=== PATIENT | female | born 2005 | race Caucasian/White ===

== ENCOUNTER 2023-12-14 15:18 | Emergency (ER) | payer OTHER, SELFPAY ==
[2023-12-14 15:22] VITALS: BP 118/77; PULSE 95; RESP 18; TEMP 36.6; O2SAT 98; BMI 36.7
--- NOTE | 2023-12-14 16:03 | CT_ITS ---
The [address] [address] Patient Name: SIVAKUMAR GATICA MRN: [id number] date: 2005 Sex: F Assigned Patient Location: ER Current Patient Location: Accession/Order Number: [id number] Exam Date: 12/14/2023 16:33 Report Date: 12/14/2023 16:54 At the request of: FRANCA ZHOU Procedure: CT lumbar spine wo con EXAM: CT lumbar spine wo con HISTORY: The patient is a 17-year-old female with back pain COMPARISON: None. TECHNIQUE: CT images were obtained through the lumbar spine without intravenous contrast and reformatted in 2 dimensions. Dose reduction techniques were achieved by using automated exposure control and/or adjustment of mA and/or kV according to patient size and/or use of iterative reconstruction technique. FINDINGS: The axial images demonstrate no fractures or cortical discontinuities throughout the lumbar spine. The sacroiliac joints are maintained. There is partial lumbarization of S1. The coronal and sagittal reformatted images demonstrate no fractures or loss of vertebral body height throughout the lumbar spine. There is no significant disc space narrowing. There is 3 mm of retrolisthesis of L5 on S1. There is slight retrolisthesis of L3 on L4 and of L4 on L5. The soft tissue images demonstrate no evidence of sizable disc herniations or central canal stenosis throughout the lumbar spine. CT/CT lumbar spine wo con IMPRESSION: This is a relatively negative CT scan of the lumbar spine with no fractures or loss of vertebral body height. Electronically authenticated by: KAREN ACOSTA Date: 12/14/2023 16:54
[2023-12-14] MEDS: KETOROLAC TROMETHAMINE 30 MG/ML VIAL IM (16:25)
--- NOTE | 2023-12-14 17:12 | ED.BACK1 ---
HPI - Back Pain/Injury General Chief Complaint: Back Pain/Injury Stated Complaint: WEAK, BACK PAIN Time Seen by Provider: 12/14/23 15:34 Source: patient Mode of arrival: walk-in Limitations: no limitations History of Present Illness HPI Narrative: Is coming to the ER with lower back pain that is not associate with any radiation numbness tingling or any other complaints, the patient pain also not associate with any trauma but she did mention that she was evaluated for that couple days ago in another facility and [facility] after which she was prescribed Flexeril and she feels that her legs are weaker or she is weaker generally because of the Flexeril. No incontinence of urine or stool Related Data Home Medications Medication Instructions Recorded Confirmed cyclobenzaprine 10 mg tablet 10 mg PO QAM 12/14/23 12/14/23 lurasidone 40 mg tablet (Latuda) 40 mg PO DAILY 12/14/23 12/14/23 melatonin 3 mg capsule 3 mg PO DAILY 12/14/23 12/14/23 montelukast 10 mg tablet 10 mg PO DAILY 12/14/23 12/14/23 (Singulair) propranolol 60 mg capsule,24 10 mg PO DAILY 12/14/23 12/14/23 hr,extended release venlafaxine 75 mg capsule,extended 75 mg PO DAILY 12/14/23 12/14/23 release 24 hr (Effexor XR) Previous Rx's Medication Instructions Recorded acetaminophen 650 mg 650 mg PO Q8H PRN pain #20 tabs 12/14/23 tablet,extended release (Tylenol 8 Hour) prednisone 20 mg tablet 40 mg (2 x 20 mg) PO DAILY 5 days 12/14/23 #10 tabs Allergies Allergy/AdvReac Type Severity Reaction Status Date / Time amoxicillin Allergy Mild Verified 12/14/23 15:22 Review of Systems ROS Status of ROS 10 or more systems reviewed and unremarkable except as noted in history and below Exam Narrative Exam Narrative: Nurses notes and vital signs reviewed and patient is not hypoxic. General: Well-appearing and in no apparent distress. Skin: Warm, dry, no pallor noted. No rash. Head: Normocephalic, atraumatic. Neck: Supple, non-tender. Eye: Pupils are equal, round and EOMI. No scleral icterus. Ears, Nose, Mouth, and Throat: TM are clear, no nasal mucosal hypertrophy. Oral mucosa is moist, no posterior oropharynx erythema, uvula is mid-line Cardiovascular: Regular Rate and Rhythm without murmur, gallop or rub. Respiratory: No accessory muscle use or respiratory distress. Lungs are clear to auscultation, no wheezing, rales or rhonchi Chest Wall: no tenderness Back: No midline thoracic there is a intervertebral line tenderness at the lower lumbar level no paraspinal muscle tenderness Musculoskeletal: normal ROM, no calf or popliteal tenderness, no lower extremity edema/swelling GI: Abdomen is soft, non-distended. Normal bowel sounds. No masses appreciated. No tenderness to palpation. No rebound, guarding, or rigidity noted. Neurological: A&O x4. No cranial nerve dysfunction observed. No truncal ataxia. Moves all extremities. Sensation intact. Psychiatric: Cooperative and interactive. Normal mood and affect. Constitutional Vital Signs, click to edit/add: Last Vital Signs Temp 97.8 F 12/14/23 15:22 Pulse 95 H 12/14/23 15:22 Resp 18 12/14/23 15:22 BP 118/77 12/14/23 15:22 Pulse Ox 98 12/14/23 15:22 Course Vital Signs Vital signs: Vital Signs Temperature 97.8 F 12/14/23 15:22 Pulse Rate 95 H 12/14/23 15:22 Respiratory Rate 18 12/14/23 15:22 Blood Pressure 118/77 12/14/23 15:22 Pulse Oximetry 98 12/14/23 15:22 Temperature 97.8 F 12/14/23 15:22 Pulse Rate 95 H 12/14/23 15:22 Respiratory Rate 18 12/14/23 15:22 Blood Pressure 118/77 12/14/23 15:22 Pulse Oximetry 98 12/14/23 15:22 MDM - Back Pain/Injury MDM Narrative Medical decision making narrative: CT of the lumbar spine was done because of the patient's symptoms that has been continuous in addition to the fact that she mentioned weakness although in the examination the patient had a good flexion in the ankle Right now the patient CAT scan showed no acute significant pathology but the patient will be treated with 5 days of prednisone in addition to Tylenol and stopping her naproxen The patient is to follow up with primary care physician in next 2-3 days or to return to the emergency department should any of the signs or symptoms worsen or new symptoms develop. The patient agrees with the following Diagnosis and Treatment plan and the patient will be discharged home. Discharge Plan Discharge Chief Complaint: Back Pain/Injury Clinical Impression: Strain of lumbar region Patient Disposition: Home, Self-Care Time of Disposition Decision: 17:10 Condition: Good Prescriptions / Home Meds: New prednisone 20 mg tablet 40 mg PO DAILY 5 Days Qty: 10 0RF acetaminophen [Tylenol 8 Hour] 650 mg tablet extended release 650 mg PO Q8H PRN (Reason: pain) Qty: 20 0RF No Action venlafaxine [Effexor XR] 75 mg capsule,extended release 24hr 75 mg PO DAILY montelukast [Singulair] 10 mg tablet 10 mg PO DAILY lurasidone [Latuda] 40 mg tablet 40 mg PO DAILY Rx Instructions: must administer with food (at least 350 calories) melatonin 3 mg capsule 3 mg PO DAILY cyclobenzaprine 10 mg tablet 10 mg PO QAM propranolol 60 mg capsule,extended release 24 hr 10 mg PO DAILY Instructions: Back Pain (ED) Stand Alone Forms: Portal Instructions Referrals: [facility] [Primary Care Provider] - 1 week
== END 2023-12-14 17:25 | disposition home or self-care (01) ==
PROVIDERS: Emergency Provider Emergency Medicine
DX: S39.012A Strain of muscle, fascia and tendon of lower back, initial encounter (principal); Z79.899 Other long term (current) drug therapy; X58.XXXA Exposure to other specified factors, initial encounter
CPT/HCPCS: 72131; 96372; 99285; J1885

== ENCOUNTER 2024-10-26 17:35 | Emergency (ER) | payer OTHER, SELFPAY ==
[2024-10-26 17:43] VITALS: BP 121/70; PULSE 76; TEMP 36.6; O2SAT 99; BMI 37.0
--- OUTSIDE RECORDS SUMMARY | 2024-10-26 17:45 | XMS_ITS | CCD ---
Author Organization [facility] Care Team Providers Care Surgical Assistant Name Role Phone FRANCA MONTESINOS Unavailable Unavailable ADOLPH HAYES Unavailable Unavailable Mic Concepcion Unavailable NO FAMILY, PHYSICIAN Primary Care Provider Unava ildesiree Da Silva DO Christian Emergency Provider MD Jamaal Yoder Admit Provider [phone] MD Jamaal Yoder Attending Provider MD Soila Jacobs Attending Provider [phone] [facility] Primary Care Provider Unavailable Primary Care Provider Unavailabl e NO FAMILY, PHYSICIAN Primary Care Provider Unava ilable DO Avinash Christian Emergency Provider MD Jamaal Yoder Admit Provider [phone] MD Jamaal Yoder Attending Provider MD Solia Jacobs Attending Provider [phone] [facility] Primary Care Provider DO Angel Ca Emergency Provider LudyvaMayela Lee MD Unavailable MAYELA TRACEY Attending Unavailable MAYELA TRACEY Referring Unavailable MAYELA TRACEY Attending Unavailable PCP, NOT IN SYSTEM Primary Care Unavailable JOEY ZEPEDA Attending Unavailable PABLO ANDREW Referring Unavailable PCP, NOT IN SYSTEM Primary Care Unavailable PCP, NOT IN SYSTEM Primary Care Unavailable DWAYNE WHITTAKER Attending Unavailable PCP, NOT IN SYSTEM Primary Care Unavailable SANDEE CELESTIN Attending Unavailable PCP, NOT IN SYSTEM Primary Care Unavailable REUBEN MORALES Attending UnavailREUBEN Thomas Attending UnavailERUBEN Thomas Referring Unavailabl e PCP, NOT IN SYSTEM Primary Care Unavailable PCP, NOT IN SYSTEM Primary Care Unavailable DWAYNE WHITTAKER Attending Unavailable PABLO ANDREW Referring Unavailable PCP, NOT IN SYSTEM Primary Care Unavailable PCP, NOT IN SYSTEM Primary Care Unavailable [facility] Primary Care Unavaila Soila Marie Attending Unavailable Soila Jacobs Admitting Unavailable [facility] Primary Care Unavaila ble Mayela Tracey Attending Unavailable Tracey, Mayela Admitting Unavailable Sangeetha Alamo Referring Unavailable [facility] Primary Care Unavaila ble Marv Wilkinson Attending Unavailab le Marv Wilkinson Admitting Unavailab Heather Michaelyemi Attending Unavailable Paresh, Jamaal Admitting Unavailable NO FAMILY, PHYSICIAN Primary Care Unavailable [facility], Services Primary Care Unavaila Angel Snow Attending Unavailable Angel Ca Admitting Unavailable SHARI SHELDON Referring Unavailable MANTOLLIE MAURER Referring Unavailable MARINA SMITH Attending Unavailable SHARI SHELDON Attending Unavailable ROSALIA JOSE Attending Unavailable ELISSA TRACEYA Referring Unavailable Rosa Jensen CNP Attending Provider Rosa Chandler Attending Unavailable Allergies Allergy Classification Reported Allergen(s) Allergy Type Date of Onset Reaction(s) Facility (15 sources) Amoxicillin; Translations: [AMOXICILLIN] Drug Allergy 08-28-2018 Diarrhea [facility] (2 sources) Amoxicillin Drug Allergy 01-01-2024 [facility] Repository Medications Current Medications Medication Drug Class(es) Dates Sig (Normalized) Sig (Original) atomoxetine (1 source) Norepinephrine Reuptake Inhibitor atomoxetine HCl (STRATTERA ORAL) Take by mouth. 0 Active azithromycin 500 mg oral tablet (1 source) Macrolide Antimicrobial Start: 06-25-2023 take 1 tablet by mouth every twenty-four hours Azithromycin 500 MG 1 tablet Orally Once a day for 5 days Jun, Active dicyclomine hydrochloride 10 mg oral capsule (1 source) Anticholinergic Start: 10-20-2023 take 10 mg by mouth twice daily Dicyclomine Active 10 MG PO Twice daily 10 October 20, 2023 10:35pm fludrocortisone acetate 0.1 mg oral tablet (1 source) Start: 01-27-2024 End: 01-26-2025 take 1 tablet by mouth once daily fludrocortisone (Florinef) 0.1 mg tablet Indications: Postural dizziness with presyncope Take 1 tablet (0.1 mg) by mouth once daily. 90 tablet 3 01/27/2024 01/26/2025 Active lurasidone hydrochloride 80 mg oral tablet (6 sources) Atypical Antipsychotic Start: 09-24-2024 Lurasidone 80 mg tablet Active 80 MG PO September 24, 2024 12:00am Start: 09-24-2023 take 1 tablet by [place] th once daily at mealtime lurasidone (Latuda) 20 mg tablet Take 1 tablet (20 mg) by mouth once daily. Take with food. 0 09/24/2023 Active melatonin 3 mg oral tablet (7 sources) Start: 08-07-2023 melatonin 3 mg tablet Take 1 tablet (3 mg) by mouth as needed at bedtime for sleep. 0 08/07/2023 Active montelukast (1 source) Leukotriene Receptor Antagonist montelukast sodium (SINGULAIR ORAL) Take by mouth. 0 Active ondansetron 4 mg oral tablet (1 source) Serotonin-3 Receptor Antagonist Start: 10-20-2023 take 4 mg by mouth every eight hours Ondansetron Hcl Active 4 MG PO Q8H 12 October 20, 2023 12:00am sertraline 100 mg oral tablet (1 source) Serotonin Reuptake Inhibitor Start: 09-24-2024 Sertraline 100 mg tablet Active 50 MG PO Every Morning September 24, 2024 12:00am simethicone 250 mg oral capsule (1 source) Start: 10-20-2023 take 250 mg by mouth once daily Simethicone Active 250 MG PO Daily 7 October 20, 2023 12:00am venlafaxine 75 mg oral tablet (7 sources) Serotonin and Norepinephrine Reuptake Inhibitor Start: 09-09-2023 take 1 tablet by mouth once daily at mealtime venlafaxine (Effexor) 75 mg tablet Take 1 tablet (75 mg) by mouth once daily. Take with food. 0 09/09/2023 Active Start: 08-07-2023 take 1 capsule by mo [facility] once daily Venlafaxine (Effexor Xr) 75 mg capsule,extended release 24hr Active 75 MG PO Daily August 06, 2023 11:00pm Completed/Discontinued Medications Medication Drug Class(es) Dates Sig (Normalized) Sig (Original) magnesium oxide 400 mg oral tablet (4 sources) Start: 09-30-2023 End: 01-27-2024 take 1 tablet by mouth twice daily magnesium oxide (Mag-Ox) 400 mg tablet Indications: Postural dizziness with presyncope , Mood disorder (CMS/HCC) , Bipolar affective disorder, current episode hypomanic (CMS/HCC) , Anxiety , Posttraumatic stress disorder , Hypokalemia , Palpitations , Obesity (BMI 35.0-39.9 without comorbidity) , Shortness of breath , Abnormal EKG Take 1 tablet (400 mg) by mouth 2 times a day. 180 tablet 0 09/30/2023 01/27/2024 Discontinued (Therapy completed) microencapsulated potassium chloride 20 meq extended release oral tablet (4 sources) Start: 09-30-2023 End: 09-29-2024 take 2 tablets by mouth once daily potassium chloride CR (Klor-Con M20) 20 mEq ER tablet Indications: Postural dizziness with presyncope , Mood disorder (CMS/HCC) , Bipolar affective disorder, current episode hypomanic (CMS/HCC) , Anxiety , Posttraumatic stress disorder , Hypokalemia , Palpitations , Obesity (BMI 35.0-39.9 without comorbidity) , Shortness of breath , Abnormal EKG Take 2 tablets (40 mEq) by mouth once daily. Do not crush or chew. 180 tablet 0 09/30/2023 01/27/2024 Discontinued (Therapy completed) Problems Active Problems Problem Classification Problem Date Documented Da te Episodic/Chronic Abdominal pain (1 source) Abdominal pain; Translations: [Unspecified abdominal pain] 10-20-2023 Episodic Administrative/social admission (4 sources) Follow-up status; Translations: [Person consulting for explanation of examination or test findings] Onset: 01-27-2024 01-27-2024 Episodic Anxiety disorders (20 sources) Anxiety; Translations: [Anxiety disorder, unspecified] Onset: 09-30-2023 09-30-2023 Chronic Conditions associated with dizziness or vertigo (17 sources) Postural dizziness; Translations: [Dizziness and giddiness] Onset: 08-29-2023 09-30-2023 Episodic Disorders usually diagnosed in infancy, childhood, or adolescence (2 sources) Autistic disorder; Translations: [Autistic disorder] Onset: 03-11-2024 Chronic Headache; including migraine (1 source) Headache Onset: 11-19-2023 Episodic Headache; including migraine (3 sources) Headache; including migraine; Translations: [Headache, unspecified] Onset: 11-19-2023 Malaise and fatigue (3 sources) Other fatigue; Translations: [Fatigue] Onset: 07-02-2017 Episodic Mood disorders (20 sources) Major depressive disorder; Translations: [Major depressive disorder, single episode, unspecified] Onset: 08-05-2023 08-05-2023 Chronic Mood disorders (2 sources) Mood disorders; Translations: [Depression, unspecified] Onset: 03-18-2024 Other aftercare (2 sources) Treatment changed; Translations: [Other supervisor intermediates (current) drug therapy] Onset: 01-27-2024 01-27-2024 Episodic Other aftercare (2 sources) Other supervisor intermediates (current) drug therapy; Translations: [Other residential (current) drug therapy] Onset: 01-27-2024 Episodic Other circulatory disease (3 sources) Orthostatic hypotension; Translations: [Orthostatic hypotension] Onset: 01-27-2024 01-27-2024 Episodic Other circulatory disease (1 source) Orthostatic hypotension; Translations: [Orthostatic hypotension] Onset: 01-27-2024 Episodic Other circulatory disease (1 source) Postural orthostatic tachycardia syndrome ; Translations: [Postural orthostatic tachycardia syndrome [POTS]] Onset: 09-24-2024 Episodic Other nervous system disorders (2 sources) Other chronic pain; Translations: [Other chronic pain] Onset: 02-25-2024 Chronic Other nutritional; endocrine; and metabolic disorders (8 sources) Body mass index 30+ - obesity; Translations: [Obesity, unspecified] Onset: 09-30-2023 09-30-2023 Chronic Other nutritional; endocrine; and metabolic disorders (6 sources) Obesity, unspecified; Translations: [Obesity, unspecified] Onset: 09-30-2023 Chronic Other nutritional; endocrine; and metabolic disorders (2 sources) Body mass index (BMI) 37.0-37.9, adult; Translations: [Body mass index (BMI) 37.0-37.9, adult] Onset: 03-18-2024 Chronic Other upper respiratory disease (1 source) Pain in throat Onset: 01-09-2024 Episodic Other upper respiratory infections (3 sources) Acute pharyngitis, unspecified; Translations: [Streptococcal pharyngitis] Onset: 02-02-2024 Episodic Residual codes; unclassified (2 sources) Nicotine-filled electronic cigarette user; Translations: [Tobacco use] Onset: 01-27-2024 01-27-2024 Episodic Residual codes; unclassified (2 sources) Tobacco use; Translations: [Tobacco use] Onset: 01-27-2024 Episodic Sprains and strains (1 source) Strain of muscle, fascia and tendon of lower back, initial encounter; Translations: [Strain of muscle, fascia and tendon of lower back, initial encounter] Onset: 12-10-2023 Episodic Unclassified (1 source) Painful Urination Onset: 01-29-2024 Unclassified (1 source) COUGH, SORE THROAT, Onset: 01-09-2024 Unclassified (1 source) Cold Like Symptoms Onset: 04-07-2024 Unclassified (1 source) Cough and sore throat Onset: 04-07-2024 Unclassified (1 source) Low back pain, unspecified; Translations: [Low back pain, unspecified] Onset: 07-14-2024 Urinary tract infections (1 source) Acute cystitis with hematuria; Translations: [Acute cystitis with hematuria] Onset: 01-29-2024 Episodic Viral infection (1 source) Viral infection, unspecified; Translations: [Viral infection, unspecified] Onset: 01-09-2024 Episodic Past or Other Problems Problem Classification Problem Date Documented Date Episodic/Chronic Cardiac dysrhythmias (12 sources) Palpitations; Translations: [Palpitations] Onset: 09-30-2023 09-30-2023 Episodic Fluid and electrolyte disorders (14 sources) Hypokalemia; Translations: [Hypokalemia] Onset: 09-30-2023 09-30-2023 Episodic Nausea and vomiting (3 sources) Nausea; Translations: [Nausea] Onset: 03-21-2024 10-20-2023 Episodic Other injuries and conditions due to external causes (2 sources) Allergy, unspecified, sequela; Translations: [Allergy, unspecified, sequela] Onset: 03-18-2024 Episodic Other lower respiratory disease (9 sources) Dyspnea; Translations: [Shortness of breath] Onset: 09-30-2023 09-30-2023 Episodic Other lower respiratory disease (2 sources) Shortness of breath; Translations: [Shortness of breath] Onset: 09-30-2023 Episodic Other screening for suspected conditions (not mental disorders or infectious disease) (11 sources) Electrocardiogram abnormal; Translations: [Abnormal electrocardiogram [ECG] [EKG]] Onset: 09-30-2023 09-30-2023 Episodic Spondylosis; intervertebral disc disorders; other back problems (3 sources) Backache; Translations: [Pain in thoracic spine] Onset: 12-10-2023 Episodic Suicide and intentional self-inflicted injury (6 sources) Suicidal thoughts; Translations: [Suicidal ideations] Onset: 08-05-2023 08-05-2023 Episodic Syncope (6 sources) Syncope and collapse; Translations: [Syncope and collapse] Onset: 09-30-2023 Episodic Unclassified (1 source) Low back pain, unspecified; Translations: [Low back pain, unspecified] Onset: 07-14-2024 Results Test Name Value Interpretation Reference Range Facility Patient Outreach Patient Outreach [id number] Sivakumar Prabhakar 2005 F Date Provider Department Center 07/15/2024 [id number]-[id number] BARRON [facility] FM Comprehensiv Family History Problem Relation Age of Onset Depression Mother Autism Father Depression Father Anxiety disorder Father Autism Brother Family Status - Relation Status Age at Mother Father Brother Normal [facility] EDPROVon 07-14-2024 EDPROV [facility] [address] [facility] [id number] EMERGENCY DEPARTMENT ENCOUNTER 07/14/2024 CHIEF COMPLAINT Chief Complaint Patient presents with Back Pain States she has left back hurts x 2 days HISTORY OF PRESENT ILLNESS 18-year-old female presents to the emergency department for evaluation of low back pain. Patient reports the back pain has been gradually worsening since onset over the last 2 days. patient denies radiation of the pain. Patient denies history of blunt injury. Patient reports she has been doing a lot of lifting of boxes recently for work, though. Patient denies loss of bladder or bowel control. Patient reports she took a Flexeril with no significant relief of pain. Patient denies attempting any Tylenol or Motrin prior to arrival. Patient reports she has history of chronic mid and low back pain similar to today. REVIEW OF SYSTEMS Review of Systems Constitutional: Negative for chills and fever. Respiratory: Negative for shortness of breath. Cardiovascular: Negative for chest pain. Gastrointestinal: Negative for abdominal pain, diarrhea and vomiting. Genitourinary: Negative for difficulty urinating, dysuria and frequency. Musculoskeletal: Positive for back pain. Negative for neck pain. Skin: Negative for rash. Neurological: Negative for syncope, weakness, numbness and headaches. Psychiatric/Behaviora l: Negative for confusion. All other systems reviewed and are negative. PAST MEDICAL HISTORY has a past medical history of ADHD (attention deficit hyperactivity disorder), Bipolar 1 disorder (CMS/HCC), Depression, Known health problems: none, and PTSD (post-traumatic stress disorder). SURGICAL HISTORY has a past surgical history that includes Excision benign skin lesion scalp / neck / hands / feet / genitalia. CURRENT MEDICATIONS Previous Medications ACETAMINOPHEN (TYLENOL 8 HOUR) 650 MG ER TABLET Take 650 mg by mouth every 8 (eight) hours if needed for mild pain (1-3 pain score). Do not crush, chew, or split. ATOMOXETINE (STRATTERA) 40 MG CAPSULE Take 40 mg by mouth in the morning. Swallow capsule whole; do not open. If opened accidentally, do not touch eyes; wash hands immediately (product is an eye irritant). FLUDROCORTISONE ACETATE (FLUDROCORTISONE ORAL) Take by mouth. LURASIDONE (LATUDA) 80 MG TABLET Take 80 mg by mouth in the morning. MONTELUKAST (SINGULAIR) 10 MG TABLET Take 10 mg by mouth at bedtime. PROPRANOLOL (INDERAL) 10 MG TABLET Take 10 mg by mouth three times daily. VENLAFAXINE XR (EFFEXOR-XR) 150 MG 24 HR CAPSULE Take 150 mg by mouth in the morning. Do not crush or chew. ALLERGIES is allergic to amoxicillin. FAMILY HISTORY She indicated that the status of her mother is unknown. She indicated that the status of her father is unknown. She indicated that the status of her brother is unknown. family history includes Anxiety disorder in her father; Autism in her brother and father; Depression in her father and mother. SOCIAL HISTORY reports that she has never smoked. She has never used smokeless tobacco. She reports current alcohol use. She reports that she does not currently use drugs. PHYSICIAL EXAM INITIAL VITALS: height is 1.676 m (5' 6 ) and weight is 109 kg (240 lb 3.2 oz). Her temperature is 36.4 ???C (97.5 ???F). Her blood pressure is 118/90 and her pulse is 91. Her respiration is 18 and oxygen saturation is 100%. Physical Exam Vitals reviewed. Constitutional: General: She is not in acute distress. Appearance: Normal appearance. She is not ill-appearing or toxic-appearing. HENT: Head: Normocephalic and atraumatic. Mouth/Throat: Mouth: Mucous membranes are moist. Eyes: Conjunctiva/sclera: Conjunctivae normal. Cardiovascular: Rate and Rhythm: Normal rate and regular rhythm. Heart sounds: Normal heart sounds. Pulmonary: Effort: Pulmonary effort is normal. No respiratory distress. Breath sounds: Normal breath sounds. Abdominal: Palpations: Abdomen is soft. Tenderness: There is no abdominal tenderness. Musculoskeletal: General: Normal range of motion. Cervical back: Normal range of motion and neck supple. No tenderness. Thoracic back: No tenderness. Lumbar back: Tenderness (midline and bilateral paraspinal musculature) present. Negative right straight leg raise test and negative left straight leg raise test. Comments: No saddle anesthesia. No foot drop noted bilaterally. Nontender extremities. Skin: General: Skin is warm and dry. Findings: No rash. Neurological: General: No focal deficit present. Mental Status: She is alert and oriented to person, place, and time. Sensory: Sensation is intact. Motor: Motor function is intact. Gait: Gait is intact. Gait normal. Psychiatric: Mood and Affect: Mood normal. Behavior: Behavior normal. DIAGNOSTIC RESULTS EKG: Not indicated RADIOLOGY: Radiologist interpret (more content not included)... Normal [facility] Patient Outreachon Patient Outreach [id number] Sivakumar Prabhakar 2005 F Date Provider Department [place] 03/25/2024 [id number] BARRON [facility] FM Comprehensiv Family History Problem Relation Age of Onset Depression Mother Autism Father Depression Father Anxiety disorder Father Autism Brother Family Status - Relation Status Age at Mother Father Brother Normal [facility] EDPROVon 03-21-2024 EDPROV HPI Chief Complaint Patient presents with Nausea Vomiting Headache Pt states PARKER for the last week. Nausea and vomiting starting today. Pt denies ill contacts and had control removed last week. Pt here from home via private auto. Pt with visitor in room who doesn't participate in history. Pt with reports of n/v X 1 in AM on March 27. Pt notes that emesis wasn't bilious or bloody. Pt with no unusual food. Others have eating same things as her in family and they are not ill per report. Pt with PARKER today also. Pt with no hx headaches in past. PARKER on/off over last week. Pt notes that she had recently been diagnosed with scoliosis and has had chronic fatigue (months). Pt with no fever, chills. Pt with no URI/cough/sinus symptoms. Pt with no ear pain or sore throat. Pt with no CP/SOB. Pt with no abd pain. Pt told RN that had control removed last week (I verified nexplanon). Pt with dinner tonight and felt nauseated again and took a test and was negative . Pt with no trauma/head injury. Pt with no concern about CO exposure where she is living/working. Pt with no vision/speech issues that are new. Pt with nothing taken for symptoms. Pt with generalized PARKER. Pt with no n/t/w. Pt with no balance/coordination issues. Pt with no hx change in caffeine usage. Pt hasn't taken any OTC meds. Pt has been able to eat/drink since emesis in am. Pt with no hx GERD, PUD, GB problems or renal stones. Pt with no prior surgery on abd. Pt with no change in/new medications. Meera Coma Scale Score: 15 Patient History Past Medical History: Diagnosis Date ADHD (attention deficit hyperactivity disorder) Bipolar 1 disorder (CMS/HCC) Depression Known health problems: none PTSD (post-traumatic stress disorder) Past Surgical History: Procedure Laterality Date EXCISION BENIGN SKIN LESION SCALP / NECK / HANDS / FEET / GENITALIA Family History Problem Relation Name Age of Onset Depression Mother Autism Father Depression Father Anxiety disorder Father Autism Brother Social History Tobacco Use Smoking status: Never Smokeless tobacco: Never Vaping Use Vaping Use: Every day Substances: Nicotine Devices: Disposable Substance Use Topics Alcohol use: Yes Comment: monthly Drug use: Not Currently Review of Systems Review of Systems Constitutional: Positive for fatigue. Negative for appetite change, chills and fever. HENT: Negative for ear pain, rhinorrhea and sore throat. Eyes: Negative for photophobia and visual disturbance. Respiratory: Negative for cough, chest tightness and shortness of breath. Gastrointestinal: Positive for nausea and vomiting. Negative for abdominal distention, abdominal pain, blood in stool, constipation and diarrhea. Genitourinary: Negative for difficulty urinating, dysuria, flank pain and hematuria. Musculoskeletal: Negative for arthralgias and myalgias. Neurological: Positive for headaches. Negative for dizziness, facial asymmetry, speech difficulty, weakness and numbness. Physical Exam ED Triage Vitals [03/21/24 2211] Temp Heart Rate Resp BP 35.9 ???C (96.7 ???F) 88 17 106/77 SpO2 Temp Source Heart Rate Source Patient Position 98 % Temporal Monitor Sitting BP Location FiO2 (%) Left arm -- Physical Exam Constitutional: General: She is not in acute distress. Appearance: She is well-developed. She is obese. She is not ill-appearing. HENT: Head: Normocephalic and atraumatic. Mouth/Throat: Mouth: Mucous membranes are moist. Eyes: Pupils: Pupils are equal, round, and reactive to light. Cardiovascular: Rate and Rhythm: Normal rate and regular rhythm. Heart sounds: Normal heart sounds. Pulmonary: Effort: Pulmonary effort is normal. Breath sounds: Normal breath sounds. Abdominal: General: Bowel sounds are normal. Palpations: Abdomen is soft. Musculoskeletal: General: No swelling or tenderness. Skin: General: Skin is warm and dry. Neurological: Mental Status: She is alert and oriented to person, place, and time. Cranial Nerves: No cranial nerve deficit. Sensory: No sensory deficit. Motor: No weakness. Comments: Speech clear and no facial droop. Psychiatric: Mood and Affect: Mood normal. Procedures ED Course & MDM ED Course as of 03/21/24 [id number] Sat March 21, 2024 0462 I was back to update pt on results of labs and outpt plan of care. [CS] ED Course User Index [CS] Marina Smith MD Diagnoses as of 03/21/24 2347 Nonintractable headache, unspecified chronicity pattern, unspecified headache type Nausea and vomiting, unspecified vomiting type Medical Decision Making Flu, dehydration, COVID, viral illness, CO exposure Problems Addressed: Nausea and vomiting, unspecified vomiting type: self-limited or minor problem Nonintractable headache, unspecified chronicity pattern, unspecified headache type: self-limited or minor problem Amount and/or Complexity of Data Reviewed Exter (more content not included)... Normal [facility] Office Visiton 03-18-2024 Follow-up visit [id number] Francie Prabhakarbrey 2005 F Date Provider Department Center 03/18/2024 [id number]-ROSALIA JOSE [facility] FM Comprehensiv Family History Problem Relation Age of Onset Depression Mother Autism Father Depression Father Anxiety disorder Father Autism Brother Family Status - Relation Status Age at Mother Father Brother Level of Service:49908 NC OFFICE/OUTPATIENT NEW MODERATE MDM 45 MINUTES (GC) Reason for Visit and Comments: Establish Care [42] - New patient, est. Care questions about back and other issues Normal [facility] EDPROVon 02-25-2024 EDPROV HPI Chief Complaint Patient presents with ??? Back Pain Patient c/o back pain that is making it hard to breath. No relief with muscle relaxer or tylenol. Patient recently moved. Pt c/o mid-back pain that began yesterday but has a history of this same pain. Denies injury, bowel/bladder dysfunction, weakness/numbness in lower extremities. No relief with motrin, tylenol or flexeril. Pain worse with bending/twisting. History provided by: Patient Outing Coma Scale Score: 15 Patient History Past Medical History: Diagnosis Date ??? Known health problems: none No past surgical history on file. No family history on file. Social History Tobacco Use ??? Smoking status: Not on file ??? Smokeless tobacco: Not on file Vaping Use ??? Vaping Use: Not on file Substance Use Topics ??? Alcohol use: Yes Comment: monthly ??? Drug use: Not Currently Review of Systems Review of Systems Constitutional: Negative. Gastrointestinal: Negative for abdominal pain. Genitourinary: Negative for dysuria, flank pain and frequency. Musculoskeletal: Positive for back pain. Physical Exam ED Triage Vitals Temp Heart Rate Resp BP 02/25/24 1358 02/25/24 1358 02/25/24 1359 02/25/24 1358 36.6 ???C (97.9 ???F) 80 18 (!) 133/92 SpO2 Temp Source Heart Rate Source Patient Position 02/25/24 1358 02/25/24 1359 02/25/24 1359 02/25/24 1359 100 % Oral Monitor Sitting BP Location FiO2 (%) 02/25/24 1359 -- Left wrist Physical Exam Constitutional: General: She is not in acute distress. Appearance: Normal appearance. She is not ill-appearing, toxic-appearing or diaphoretic. HENT: Head: Normocephalic and atraumatic. Musculoskeletal: Thoracic back: Tenderness present. No signs of trauma, spasms or bony tenderness. Normal range of motion. Neurological: Mental Status: She is alert. Procedures ED Course & MDM Diagnoses as of 02/25/24 1604 Chronic thoracic back pain, unspecified back pain laterality Medical Decision Making Attestion Ollie Morgan NP 02/25/24 1520 Normal [facility] SARS/FLU A+B/RSV by NAAT/Mol ecularon 02-02-2024 SARS/FLU A+B/RSV by NAAT/Molecular FLU A PCR Negative (qualifier value) FLU B PCR Negative (qualifier value) RSV by PCR Negative (qualifier value) SARS CoV 2 Not detected (qualifier value) NOTE The Xpert Xpress SARS-CoV-2/Flu/RSV Plus test is a rapid, multiplexed real-time RT-PCR test intended for the simultaneous qualitative detection and differentiation of SARS-CoV-2, influenza A, influenza B and respiratory syncytial virus (RSV) viral RNA from individuals suspected of respiratory viral infection consistent with COVID-19 by their healthcare provider. This test has not been validated in asymptomatic patients. The Xpert Xpress SARS-CoV-2 test is intended for use by qualified and trained operators who are performing tests using either [employer] or [employer] systems and is limited to laboratories that meet the CLIA requirements to perform high and moderate complexity tests. The Xpert Xpress SARS-CoV-2/Flu/RSV Plus is only for use under the Food and Drug Administration's Emergency Use Authorization. Results are for the simultaneous detection and differentiation of SARS-CoV-2, influenza A, influenza B and RSV nucleic acids in clinical specimens. SARS-CoV-2, influenza A, influenza B and RSV RNA identified by this test are generally detectable in upper respiratory samples during the acute phase of infection. Positive results are indicative of the presence of the identified virus, but do not rule out bacterial infection or co-infection with other pathogens not detected by this test. Clinical correlation with patient history and other diagnostic information is necessary to determine patient infection status. The agent detected may not be the definite cause of disease. Negative results do not preclude SARS-CoV-2, influenza A, influenza B and RSV infection and should not be used as the sole basis for treatment or other patient management decisions. Negative results must be combined with clinical observations, patient history and epidemiological information. An Invalid result may occur with specimen-associated inhibition unable to be resolved with specimen repeat. Fact Sheet for Healthcare Providers: https://www.fda.gov/m edia/209749/download Fact Sheet for Patients: https://www.fda.gov/m edia/693267/download Normal [facility] Comment on above: Performed By: #### C NELSON CASTANEDA, 70783-3, 61025-5 #### [facility] ([id number]) [address] [place] [address] 48723 CHLAMYDIA/GC PCR, Uon 2023 CHLAMYDIA/GC PCR, U SPECIMEN SOURCE Unknown (qualifier value) CHLAMYDIA DNA(PCR) Positive (qualifier value) Chlamydia trachomatis detected by nucleic acid amplification. GONORRHOEAE DNA(PCR) Negative (qualifier value) Neisseria gonorrhoeae not detected by nucleic acid amplification. This does not exclude the possibility of infection because results are dependent on adequate specimen collection. Normal [facility] Comment on above: Performed By: #### C NELSON CASTANEDA, 37846-9, 11903-8 #### [facility] ([id number]) [address] [place] [address] 80165 HCG ( test) Ql (U)o n 01-29-2024 Beta HCG ( test) Ql (U) Negative Normal NEG [facility] Comment on above: Performed By: #### C LEONEL [facility], 21778-0, 66842-6 #### [facility] ([id number]) [address] [place] [address] 53987 URINE CULTUREon 01-29-2024 Bacteria identified Cx Nom (U) CULTURE RESULTS 50,000 to 100,000 ORGANISMS/mL ESCHERICHIA COLI [ S = SUSCEPTIBLE R = RESISTANT I = INTERMEDIATE S-DO = Susceptible-dose dependent NS = Non-suscceptible NO = No Interpretation ] Organism: ESCHERICHIA COLI Antibiotic Interpretation ABBY Status AMPICILLIN S <=2 F AMP/SULBACTAM S <=2/1 F CEFAZOLIN S <=4 F CEFTRIAXONE S <=1 F CIPROFLOXACIN S <=0.25 F GENTAMICIN S <=1 F LEVOFLOXACIN S <=0.12 F NITROFURANTOIN S <=16 F PIPERACIL/TAZOBACTAM S <=4 F TOBRAMYCIN S <=1 F TRIMETH/SULFAMETHOXAZ OLE S <=1/19 F Susceptible [facility] Comment on above: Performed By: #### C LEONEL [facility], 60294-9, 17476-3 #### [facility] ([id number]) [address] [place] [address] 98855 URN MACROSCOPIC NURon 2023 BILIRUBIN SONIDO Negative Normal NEG [facility] Comment on above: Performed By: #### N UM #### [facility] ([id number]) [address] [place] [address] 84892 BLOOD/HGB SONIDO Large Abnormal NEG [facility] Comment on above: Performed By: #### N UM #### [facility] ([id number]) [address] [place] [address] 96998 GLUCOSE SONIDO Negative Normal NEG [facility] Comment on above: Performed By: #### N UM #### [facility] ([id number]) [address] [place] [address] 59887 KETONES SONIDO Trace Abnormal NEG [facility] Comment on above: Performed By: #### N UM #### [facility] ([id number]) [address] [place] [address] 27057 LEUKOCYTE ESTERASE SONIDO Small Abnormal NEG Pr [facility] Comment on above: Performed By: #### N UM #### [facility] ([id number]) [address] [place] [address] 57162 NITRITE SONIDO Negative Normal NEG [facility] Comment on above: Performed By: #### N UM #### [facility] ([id number]) [address] [place] [address] 67348 PH SONIDO 5.5 Normal 5.0-8.5 [facility] Comment on above: Performed By: #### N UM #### [facility] ([id number]) [address] [place] [address] 44496 PROTEIN SONIDO 30 mg/dL Abnormal NEG [facility] Comment on above: Performed By: #### N UM #### [facility] ([id number]) [address] [place] [address] 48812 SPECIFIC GRAVITY SONIDO >=1.030 Normal 1.003-1.035 [facility] Comment on above: Performed By: #### N UM #### [facility] ([id number]) [address] [place] [address] 46644 UROBILINOGEN SONIDO 1.0 eu/dL Normal <1.1 [facility] Comment on above: Performed By: #### N UM #### [facility] ([id number]) [address] [place] [address] 91917 VAGINITIS PANEL PCRon 2023 VAGINITIS PANEL PCR BACT. VAGINOSIS DNA Not detected (qualifier value) Qualitative results are reported based on detection and quantitation of targeted organism markers which include: Lactobacillus spp. (L. crispatus and L. jensenii), Gardnerella vaginalis, Atopobium vaginae, Bacterial Vaginosis Associated Bacteria-2 (BVAB-2) and Megasphaera-1 CASPER SPECIES DNA Not detected (qualifier value) Casper species not detected include: C. albicans, C. tropicalis, C. parapsilosis or C. dubliniensis CASPER KRUSEI DNA Not detected (qualifier value) No Casper krusei detected CASPER GLABRATA DNA Not detected (qualifier value) No Casper glabrata detected TRICHOMONAS VAG DNA Not detected (qualifier value) No Trichomonas vaginalis detected NOTE BD MAX Vaginal Panel has not been evaluated for patients under 18 years old. Results for these patients should be reviewed and assessed in accordance with clinical presentation to determine patient diagnosis. Normal [facility] Comment on above: Performed By: #### C BCA, [facility], 10321-7, 15731-5 #### [facility] ([id number]) [address] [place] [address] 34205 RAPID STREP SCR NURSINGon S. pyogenes Ag EIA Ql (Throat) Negative Normal NEG [facility] Comment on above: Performed By: #### 6 556-5 #### [facility] ([id number]) [address] [place] [address] 52186 SARS/FLU A+B/RSV by NAAT/Mol ecularon 01-09-2024 SARS/FLU A+B/RSV by NAAT/Molecular FLU A PCR Negative (qualifier value) FLU B PCR Negative (qualifier value) RSV by PCR Negative (qualifier value) SARS CoV 2 Not detected (qualifier value) NOTE The Xpert Xpress SARS-CoV-2/Flu/RSV Plus test is a rapid, multiplexed real-time RT-PCR test intended for the simultaneous qualitative detection and differentiation of SARS-CoV-2, influenza A, influenza B and respiratory syncytial virus (RSV) viral RNA from individuals suspected of respiratory viral infection consistent with COVID-19 by their healthcare provider. This test has not been validated in asymptomatic patients. The Xpert Xpress SARS-CoV-2 test is intended for use by qualified and trained operators who are performing tests using either [employer] or [employer] systems and is limited to laboratories that meet the CLIA requirements to perform high and moderate complexity tests. The Xpert Xpress SARS-CoV-2/Flu/RSV Plus is only for use under the Food and Drug Administration's Emergency Use Authorization. Results are for the simultaneous detection and differentiation of SARS-CoV-2, influenza A, influenza B and RSV nucleic acids in clinical specimens. SARS-CoV-2, influenza A, influenza B and RSV RNA identified by this test are generally detectable in upper respiratory samples during the acute phase of infection. Positive results are indicative of the presence of the identified virus, but do not rule out bacterial infection or co-infection with other pathogens not detected by this test. Clinical correlation with patient history and other diagnostic information is necessary to determine patient infection status. The agent detected may not be the definite cause of disease. Negative results do not preclude SARS-CoV-2, influenza A, influenza B and RSV infection and should not be used as the sole basis for treatment or other patient management decisions. Negative results must be combined with clinical observations, patient history and epidemiological information. An Invalid result may occur with specimen-associated inhibition unable to be resolved with specimen repeat. Fact Sheet for Healthcare Providers: https://www.fda.gov/m edia/621515/download Fact Sheet for Patients: https://www.fda.gov/m edia/371967/download Normal [facility] Comment on above: Performed By: #### C OVFLR #### [facility] ([id number]) [address] [place] [address] 65479 CA tilt table teston 024 CA tilt table test [facility] [place] [address] [place] [address] Cardiology Report Signed Patient: Sivakumar Prabhakar MR#: [id number] : 2005 Acct:[id number] Age/Sex: 18 / F ADM Date: 01/01/24 Loc: Room: Type: [facility] Attending Dr: Mayela Tracey MD Copies to: Mayela Alamo MD Ordering Provider: Mayela Tracey Date of Service: 01/01/24 CA/CA tilt table test: syncope/near syncope REASON FOR THE STUDY: Symptoms of lightheadedness and dizziness and orthostatic symptomatology to rule out neurocardiogenic syncope or POTS. PROCEDURE: The patient underwent standard head-up tilt table test. The patient received total of 250 mL of normal saline. Then, the patient was tilted to the upright position. Continuous blood pressure, O2 saturation and heart rate monitoring was established. Following tilt maneuver, the patient demonstrated normal and physiologic response to tilt maneuver. No symptoms were recreated. The patient received sublingual nitroglycerin and monitored for additional 15 minutes. Also, demonstrated normal and physiologic response to nitroglycerin administration. No symptoms were reported. CONCLUSION: 1. Negative tilt table test. 2. Physiologic response to tilt maneuver and nitroglycerin administration. Transcribed By: DELMA 01/01/24 1536 Dictated By: Sangeetha Alamo MD 01/01/24 1046 Signed By: 01/02/24 0629 Normal [facility] CBC AND AUTO DIFFon 11-19-19 ABSOLUTE BASOPHIL 0.1 X10E9/L Normal 0.0-0.2 [facility] Comment on above: Performed By: #### C NELSON CASTANEDA, 88525-1, 17096-8 #### [facility] ([id number]) [address] [place] [address] 36189 ABSOLUTE NEUTROPHIL 3.9 X10E9/L Normal 1.5-6.[address] [facility] Comment on above: Performed By: #### C NELSON CASTANEDA, 83062-8, 61816-1 #### [facility] ([id number]) [address] [place] [address] 96615 Basophils/100 WBC (Bld) 1.0 % Normal P [facility] Comment on above: Performed By: #### C LEONEL CMP, 87410-6, 23121-6 #### [facility] ([id number]) [address] [place] [address] 22579 Eosinophils (Bld) [#/Vol] 0.1 10*3/uL Normal 0.0-0.4 [facility] Comment on above: Performed By: #### C LEONEL CMP, 26011-1, 72096-5 #### [facility] ([id number]) [address] [place] [address] 38092 Eosinophils/100 WBC (Bld) 1.2 % Normal [facility] Comment on above: Performed By: #### C LEONEL CMP, 73560-9, 21313-6 #### [facility] ([id number]) [address] [place] [address] 45253 Erythrocyte distribution width (RBC) [Ratio] 14.8 % Normal 11.5-15.0 [facility] Comment on above: Performed By: #### C NELSON CASTANEDA, 85524-1, 16441-4 #### [facility] ([id number]) [address] [place] [address] 12694 Hematocrit (Bld) [Volume fraction] 38.6 % Normal 35-47 [facility] Comment on above: Performed By: #### C LEONEL, CMP, 37624-3, 07311-4 #### [facility] ([id number]) [address] [place] [address] 59432 Hemoglobin (Bld) [Mass/Vol] 12.7 g/dL Normal 11.7-15.5 [facility] Comment on above: Performed By: #### Joshua CASTANEDA CMP, 69616-9, 04855-5 #### [facility] ([id number]) [address] [place] [address] 24689 Lymphocytes (Bld) [#/Vol] 2.4 10*3/uL Normal 1.0-3.5 [facility] Comment on above: Performed By: #### C LEONEL, CMP, 99530-5, 51774-5 #### [facility] ([id number]) [address] [place] [address] 27155 Lymphocytes/100 WBC (Bld) 33.9 % Normal [facility] Comment on above: Performed By: #### C BCA, CMP, 81216-3, 06398-3 #### [facility] ([id number]) [address] [place] [address] 52331 MCH (RBC) [Entitic mass] 26.3 pg Low 27-34 [facility] Comment on above: Performed By: #### C BCA, CMP, 86552-9, 41897-2 #### [facility] ([id number]) [address] [place] [address] 53124 MCHC (RBC) [Mass/Vol] 32.8 g/dL Normal 32-36 [facility] Comment on above: Performed By: #### C BCA, CMP, 78730-1, 97179-2 #### [facility] ([id number]) [address] [place] [address] 41622 MCV (RBC) [Entitic vol] 80 fL Normal 80-100 P [facility] Comment on above: Performed By: #### C BCA, CMP, 67487-6, 68522-4 #### [facility] ([id number]) [address] [place] [address] 42536 Monocytes (Bld) [#/Vol] 0.6 10*3/uL Normal 0-0.9 [facility] Comment on above: Performed By: #### C BCA, CMP, 79995-1, 41257-3 #### [facility] ([id number]) [address] [place] [address] 85762 Monocytes/100 WBC (Bld) 8.1 % Normal [facility] Comment on above: Performed By: #### C BCA, CMP, 11447-9, 69814-7 #### [facility] ([id number]) [address] [place] [address] 81531 Neutrophils/100 WBC (Bld) 55.8 % Normal [facility] Comment on above: Performed By: #### C BCA, CMP, 11540-8, 66207-4 #### [facility] ([id number]) [address] [place] [address] 47592 Platelet mean volume (Bld) [Entitic vol] 10.0 fL Normal 7-12 [facility] Comment on above: Performed By: #### C LEONEL, CMP, 49350-0, 10900-2 #### [facility] ([id number]) [address] [place] [address] 75120 Platelets (Bld) [#/Vol] 276 10*3/uL Normal 150-450 [facility] Comment on above: Performed By: #### C LEONEL, CMP, 59444-4, 69486-5 #### [facility] ([id number]) [address] [place] [address] 63343 RBC COUNT 4.82 X10E12/L Normal 3.80-5.20 [facility] Comment on above: Performed By: #### C BCA, CMP, 61773-1, 99867-8 #### [facility] ([id number]) [address] [place] [address] 17777 WBC (Bld) [#/Vol] 7.0 10*3/uL Normal 4.0-11.0 [facility] Comment on above: Performed By: #### C LEONEL, CMP, 84707-4, 37208-0 #### [facility] ([id number]) [address] [place] [address] 96774 COMPREHENSIVE METABOLIC PANE Kaleb 11-19-2023 Albumin [Mass/Vol] 4.4 g/dL Normal 3.2-5.3 [facility] Comment on above: Performed By: #### C BCA, CMP, 24239-9, 93648-3 #### [facility] ([id number]) [address] [place] [address] 13397 ALP [Catalytic activity/Vol] 90 U/L Normal 39-130 [facility] Comment on above: Performed By: #### C BCA, CMP, 21948-0, 12746-9 #### [facility] ([id number]) [address] [place] [address] 67401 ALT [Catalytic activity/Vol] 20 U/L Normal 0-31 [facility] Comment on above: Performed By: #### C BCA, CMP, 34426-1, 07692-0 #### [facility] ([id number]) [address] [place] [address] 50406 Anion gap [Moles/Vol] 8 mmol/L Normal 5-15 [facility] Comment on above: Performed By: #### C BCA, CMP, 37416-0, 41177-9 #### [facility] ([id number]) [address] [place] [address] 57473 AST [Catalytic activity/Vol] 22 U/L Normal 0-41 [facility] Comment on above: Performed By: #### C BCA, CMP, 31015-9, 53092-4 #### [facility] ([id number]) [address] [place] [address] 44270 Bilirubin [Mass/Vol] 0.5 mg/dL Normal 0.3-1.[address] [facility] Comment on above: Performed By: #### C BCA, CMP, 52785-7, 76859-0 #### [facility] ([id number]) [address] [place] [address] 97912 Calcium [Mass/Vol] 9.2 mg/dL Normal 8.5-10.5 [facility] Comment on above: Performed By: #### C BCA, CMP, 76842-4, 30181-5 #### [facility] ([id number]) [address] [place] [address] 95460 Chloride [Moles/Vol] 103 mmol/L Normal 98-[address] [facility] Comment on above: Performed By: #### C BCA, CMP, 29390-3, 30093-9 #### [facility] ([id number]) [address] [place] [address] 00058 CO2 [Moles/Vol] 26 mmol/L Normal 22-32 [facility] Comment on above: Performed By: #### C NELSON CASTANEDA, 25825-6, 23837-1 #### [facility] ([id number]) [address] [place] [address] 07418 Creatinine [Mass/Vol] 0.86 mg/dL Normal 0.40-1.00 [facility] Comment on above: Result Comment: METH OD TRACEABLE TO IDMS STANDARD Performed By: #### C NELSON CASTANEDA, 33178-0, 55762-1 #### [facility] ([id number]) [address] [place] [address] 81413 eGFR (CKD-EPI) NON-RACE DEPENDENT >90 Normal >59 [facility] Comment on above: Result Comment: Reported eGFR is based on the CKD-EPI 1 equation that does not use a race coefficient. Performed By: #### C NELSON CASTANEDA, 18944-6, 07601-0 #### [facility] ([id number]) [address] [place] [address] 09709 Glucose [Mass/Vol] 86 mg/dL Normal 65-99 [facility] Comment on above: Performed By: #### C NELSON CASTANEDA, 04412-1, 38665-7 #### [facility] ([id number]) [address] [place] [address] 62396 Potassium [Moles/Vol] 3.8 mmol/L Normal 3.5-5.0 [facility] Comment on above: Performed By: #### C LEONEL, CMP, 25666-8, 48943-6 #### [facility] ([id number]) [address] [place] [address] 27972 Protein [Mass/Vol] 7.7 g/dL Normal 6.0-8.0 [facility] Comment on above: Performed By: #### C NELSON CASTANEDA, 76754-8, 69316-4 #### [facility] ([id number]) [address] [place] [address] 43316 Sodium [Moles/Vol] 137 mmol/L Normal 134-146 [facility] Comment on above: Performed By: #### C LEONEL NELSON, 05536-1, 10637-3 #### [facility] ([id number]) [address] [place] [address] 64354 Urea nitrogen [Mass/Vol] 16 mg/dL Normal 5-23 [facility] Comment on above: Performed By: #### C LEONEL NELSON, 32794-2, 34015-0 #### [facility] ([id number]) [address] [place] [address] 78765 Fibrin D-dimer DDU (PPP) [Ma ss/Vol]on 11-19-2023 D DIMER <150 Normal <255 [facility] Comment on above: Result Comment: Results <255 ng/mL DDU: The presence of a VTE can safely be excluded with a negative D-Dimer result and Wells score. A negative result doesn't exclude the possibility of DIC. The test be repeated along with other diagnostic tests if the patient's symptoms persist or worsen. [email or web address] Performed By: #### C NELSON CASTANEDA, 22955-8, 76656-5 #### [facility] ([id number]) [address] [place] [address] 24381 HCG ( test) Ql (U)o n 11-19-2023 Beta HCG ( test) Ql (U) Negative Normal NEG [facility] Comment on above: Performed By: #### 2 106-3 #### [facility] ([id number]) [address] [place] [address] 68038 TROPONIN Ion 11-19-2023 Troponin I.cardiac [Mass/Vol] ng/mL Normal 0.00-0.04 [facility] Comment on above: Performed By: #### C BCA, CMP, 62943-3, 43204-0 #### [facility] ([id number]) [address] [place] [address] 67994 URN MACROSCOPIC NURon 2023 BILIRUBIN SONIDO Negative Normal NEG [facility] Comment on above: Performed By: #### N UM #### [facility] ([id number]) [address] [place] [id number] BLOOD/HGB SONIDO Trace Abnormal NEG [facility] Comment on above: Performed By: #### N UM #### [facility] ([id number]) [address] [place] [address]105 GLUCOSE SONIDO Negative Normal NEG [facility] Comment on above: Performed By: #### N UM #### [facility] ([id number]) [address] [place] [address] 04798 KETONES SONIDO Trace Abnormal NEG [facility] Comment on above: Performed By: #### N UM #### [facility] ([id number]) [address] [place] [address] 12730 LEUKOCYTE ESTERASE SONIDO Negative Normal NEG Pr [facility] Comment on above: Performed By: #### N UM #### [facility] ([id number]) [address] [place] [address]259 NITRITE SONIDO Negative Normal NEG [facility] Comment on above: Performed By: #### N UM #### [facility] ([id number]) [address] [place] [address] 42995 PH SONIDO 6.0 Normal 5.0-8.5 [facility] Comment on above: Performed By: #### N UM #### [facility] ([id number]) [address] [place] [address] PROTEIN SONIDO Negative Normal NEG [facility] Comment on above: Performed By: #### N UM #### [facility] ([id number]) [address] [place] [address] 75980 SPECIFIC GRAVITY SONIDO >=1.030 Normal 1.003-1.035 [facility] Comment on above: Performed By: #### N UM #### [facility] ([id number]) [address] [place] [address] 56209 UROBILINOGEN SONIDO 0.2 eu/dL Normal <1.1 [facility] Comment on above: Performed By: #### N UM #### [facility] ([id number]) [address] [place] [address] 05472 XR CHEST 1 VWon 11-19-2023 XR CHEST 1 VW XR CHEST 1 VW Single view chest History:shortness of breath Difficulty breathing, shortness of breath Comparison: None Findings: Single portable view of the chest. No focal opacity, effusion or pneumothorax. Cardiomediastinal silhouette is within normal limits. Impression: No evidence of acute cardiopulmonary process. Finalized by Samuel Isidro MD on 11/19/2023 12:10 AM Normal [facility] TRANSTHORACIC ECHO (TTE) COM PLETEon 10-23-2023 TRANSTHORACIC ECHO (TTE) COMPLETE [address], [address] [place] [address] TRANSTHORACIC ECHOCARDIOGRAM REPORT Patient Name: SIVAKUMAR PRABHAKAR Reading Physician: [id number] Bisi Lira MD, [facility] Study Date: 10/23/2023 Ordering Provider: [id number] MAYELA TRACEY MRN/PID: [id number] Fellow: Nurse: Date of /Age: 2 2005 / 17 years [employer] Supervisor: Tracey Mosqueda RDCS, RVT Gender: F Additional Staff: Height: 165.10 cm Admit Date: Weight: 102.06 kg Admission Status: BSA: 2.08 m2 Department Location: [facility] Blood Pressure: 114 /70 mmHg Study Type: TRANSTHORACIC ECHO (TTE) COMPLETE Diagnosis/ICD: Dizziness and giddiness-R42; Syncope-R55; Palpitations-R00.2; Shortness of breath-R06.02; Abnormal electrocardiogram [ECG] [EKG]-R94.31 Indication: Bilpolar Disorder, Anxiety, PTSD, Hypokalemia, Obesity CPT Codes: Echo Complete w Full Doppler-89688 Study Detail: The following Echo studies were performed: 2D, M-Mode, Doppler and color flow. PHYSICIAN INTERPRETATION: Left Ventricle: Left ventricular systolic function is normal, with an estimated ejection fraction of 60-65%. There are no regional wall motion abnormalities. The left ventricular cavity size is normal. Spectral Doppler shows a normal pattern of left ventricular diastolic filling. Left Atrium: The left atrium is normal in size. Right Ventricle: The right ventricle is normal in size. There is normal right ventricular global systolic function. Right Atrium: The right atrium is normal in size. Aortic Valve: The aortic valve appears structurally normal. There is no evidence of aortic valve regurgitation. The peak instantaneous gradient of the aortic valve is 7.6 mmHg. The mean gradient of the aortic valve is 3.0 mmHg. Mitral Valve: The mitral valve is normal in structure. There is trace mitral valve regurgitation. Tricuspid Valve: The tricuspid valve is structurally normal. There is trace tricuspid regurgitation. Pulmonic Valve: The pulmonic valve is structurally normal. There is no indication of pulmonic valve regurgitation. Pericardium: There is no pericardial effusion noted. Aorta: The aortic root is normal. Systemic Veins: The inferior vena cava appears to be of normal size. In comparison to the previous echocardiogram(s): Normal Echo. CONCLUSIONS: 1. Left ventricular systolic function is normal with a 60-65% estimated ejection fraction. 2. Normal Echo. QUANTITATIVE DATA SUMMARY: 2D MEASUREMENTS: Normal Ranges: Ao Root d: 2.70 cm (2.0-3.7cm) LAs: 3.30 cm (2.7-4.0cm) RVIDd: 3.60 cm (0.9-3.6cm) IVSd: 0.90 cm (0.6-1.1cm) LVPWd: 0.80 cm (0.6-1.1cm) LVIDd: 4.50 cm (3.9-5.9cm) LVIDs: 3.50 cm LV Mass Index: 59.2 g/m2 LV % FS 22.2 % LV SYSTOLIC FUNCTION BY 2D PLANIMETRY (MOD): Normal Ranges: EF-A4C View: 60.5 % (>=55%) LV DIASTOLIC FUNCTION: Normal Ranges: MV Peak E: 0.88 m/s (0.7-1.2 m/s) MV Peak A: 0.54 m/s (0.42-0.7 m/s) E/A Ratio: 1.62 (1.0-2.2) MV lateral e' 0.22 m/s MV medial e' 0.10 m/s E/e' Ratio: 4.00 (<8.0) MITRAL VALVE: Normal Ranges: MV Vmax: 1.00 m/s (<=1.3m/s) MV peak P.0 mmHg (<5mmHg) MV mean P.0 mmHg (<48mmHg) MITRAL INSUFFICIENCY: Normal Ranges: MR Vmax: 265.00 cm/s AORTIC VALVE: Normal Ranges: AoV Vmax: 1.38 m/s (<=1.7m/s) AoV Peak P.6 mmHg (<20mmHg) AoV Mean P.0 mmHg (1.7-11.5mmHg) LVOT Max Brody: 0.82 m/s (<=1.1m/s) AoV VTI: 28.40 cm (18-25cm) LVOT VTI: 18.00 cm LVOT Diameter: 2.30 cm (1.8-2.4cm) AoV Area, VTI: 2.63 cm2 (2.5-5.5cm2) AoV Area,Vmax: 2.46 cm2 (2.5-4.5cm2) AoV Dimensionless Index: 0.63 TRICUSPID VALVE/RVSP: Normal Ranges: Peak TR Velocity: 2.06 m/s RV Syst Pressure: 20.0 mmHg (< 30mmHg) PULMONIC VALVE: Normal Ranges: PV Max Brody: 0.6 m/s (0.6-0.9m/s) PV Max P.5 mmHg [id number] Bisi Lira MD, [facility] Electronically signed on 10/23/2023 at 3:40:40 PM Final Normal [facility] Heart TransthoracicOrdere d By: Bisi Lira on 10-23-2023 Aortic Valve Area by Continuity of Peak Velocity 2.46 [facility] Work Phone: Aortic Valve Area by Continuity of VTI 2.63 [facility] Work Phone: AV mn grad 3.0 [facility] Work Phone: AV pk grad 7.6 [facility] Work Phone: AV pk brody 1.38 [facility] Work Phone: LV A4C EF 60.5 [facility] Work Phone: LVIDd 4.50 [facility] Work Phone: LVOT diam 2.30 [facility] Work Phone: MV avg E/e' ratio 4.00 [facility] Work Phone: MV E/A ratio 1.62 [facility] Work Phone: RVSP 20.0 [facility] Work Phone: [facility] Work Phone: Heart Transthoracicon [address], [address] [place] [address] TRANSTHORACIC ECHOCARDIOGRAM REPORT Patient Name: SIVAKUMAR Hernandez Physician: [id number] Bisi Lira MD, [facility] Study Date: 10/23/2023 Ordering Provider: [id number] MAYELA TRACEY MRN/PID: [id number] Fellow: Nurse: Date of /Age: 2 2005 / 17 years [employer] Supervisor: Tracey Mosqueda RDCS, RVT Gender: F Additional Staff: Height: 165.10 cm Admit Date: Weight: 102.06 kg Admission Status: BSA: 2.08 m2 Department Location: [facility] Blood Pressure: 114 /70 mmHg Study Type: TRANSTHORACIC ECHO (TTE) COMPLETE Diagnosis/ICD: Dizziness and giddiness-R42; Syncope-R55; Palpitations-R00.2; Shortness of breath-R06.02; Abnormal electrocardiogram [ECG] [EKG]-R94.31 Indication: Bilpolar Disorder, Anxiety, PTSD, Hypokalemia, Obesity CPT Codes: Echo Complete w Full Doppler-06521 Study Detail: The following Echo studies were performed: 2D, M-Mode, Doppler and color flow. PHYSICIAN INTERPRETATION: Left Ventricle: Left ventricular systolic function is normal, with an estimated ejection fraction of 60-65%. There are no regional wall motion abnormalities. The left ventricular cavity size is normal. Spectral Doppler shows a normal pattern of left ventricular diastolic filling. Left Atrium: The left atrium is normal in size. Right Ventricle: The right ventricle is normal in size. There is normal right ventricular global systolic function. Right Atrium: The right atrium is normal in size. Aortic Valve: The aortic valve appears structurally normal. There is no evidence of aortic valve regurgitation. The peak instantaneous gradient of the aortic valve is 7.6 mmHg. The mean gradient of the aortic valve is 3.0 mmHg. Mitral Valve: The mitral valve is normal in structure. There is trace mitral valve regurgitation. Tricuspid Valve: The tricuspid valve is structurally normal. There is trace tricuspid regurgitation. Pulmonic Valve: The pulmonic valve is structurally normal. There is no indication of pulmonic valve regurgitation. Pericardium: There is no pericardial effusion noted. Aorta: The aortic root is normal. Systemic Veins: The inferior vena cava appears to be of normal size. In comparison to the previous echocardiogram(s): Normal Echo. CONCLUSIONS: 1. Left ventricular systolic function is normal with a 60-65% estimated ejection fraction. 2. Normal Echo. QUANTITATIVE DATA SUMMARY: 2D MEASUREMENTS: Normal Ranges: Ao Root d: 2.70 cm (2.0-3.7cm) LAs: 3.30 cm (2.7-4.0cm) RVIDd: 3.60 cm (0.9-3.6cm) IVSd: 0.90 cm (0.6-1.1cm) LVPWd: 0.80 cm (0.6-1.1cm) LVIDd: 4.50 cm (3.9-5.9cm) LVIDs: 3.50 cm LV Mass Index: 59.2 g/m2 LV % FS 22.2 % LV SYSTOLIC FUNCTION BY 2D PLANIMETRY (MOD): Normal Ranges: EF-A4C View: 60.5 % (>=55%) LV DIASTOLIC FUNCTION: Normal Ranges: MV Peak E: 0.88 m/s (0.7-1.2 m/s) MV Peak A: 0.54 m/s (0.42-0.7 m/s) E/A Ratio: 1.62 (1.0-2.2) MV lateral e' 0.22 m/s MV medial e' 0.10 m/s E/e' Ratio: 4.00 (<8.0) MITRAL VALVE: Normal Ranges: MV Vmax: 1.00 m/s (<=1.3m/s) MV peak P.0 mmHg (<5mmHg) MV mean P.0 mmHg (<48mmHg) MITRAL INSUFFICIENCY: Normal Ranges: MR Vmax: 265.00 cm/s AORTIC VALVE: Normal Ranges: AoV Vmax: 1.38 m/s (<=1.7m/s) AoV Peak P.6 mmHg (<20mmHg) AoV Mean P.0 mmHg (1.7-11.5mmHg) LVOT Max Brody: 0.82 m/s (<=1.1m/s) AoV VTI: 28.40 cm (18-25cm) LVOT VTI: 18.00 cm LVOT Diameter: 2.30 cm (1.8-2.4cm) AoV Area, VTI: 2.63 cm2 (2.5-5.5cm2) AoV Area,Vmax: 2.46 cm2 (2.5-4.5cm2) AoV Dimensionless Index: 0.63 TRICUSPID VALVE/RVSP: Normal Ranges: Peak TR Velocity: 2.06 m/s RV Syst Pressure: 20.0 mmHg (< 30mmHg) PULMONIC VALVE: Normal Ranges: PV Max Brody: 0.6 m/s (0.6-0.9m/s) PV Max P.5 mmHg [id number] Bisi Lira MD, FACC Electronically signed on 10/23/2023 at 3:40:40 PM Final Bisi Coronel M D - 10/23/2023 [facility] [address] [facility], [address], [place] [address] TRANSTHORACIC ECHOCARDIOGRAM REPORT Patient Name: SIVAKUMAR PRABHAKAR Reading Physician: [id number] Bisi Lira MD, [facility] Study Date: 10/23/2023 Ordering Provider: [id number] MAYELA TRACEY MRN/PID: [id number] Fellow: Nurse: Date of /Age: 2 2005 / years [employer] Supervisor: Tracey Mosqueda RDCS, T Gender: F Additional Staff: Height: 165.10 cm Admit Date: Weight: 102.06 kg Admission Status: BSA: 2.08 m2 Department Location: [facility] Blood Pressure: 114 /70 mmHg Study Type: TRANSTHORACIC ECHO (TTE) COMPLETE Diagnosis/ICD: Dizziness and giddiness-R42; Syncope-R55; Palpitations-R00.2; Shortness of breath-R06.02; Abnormal electrocardiogram [ECG] [EKG]-R94.31 Indication: Bilpolar Disorder, Anxiety, PTSD, Hypokalemia, Obesity CPT Codes: Echo Complete w Full Doppler-07769 Study Detail: The following Echo studies were performed: 2D, M-Mode, Doppler and color flow. PHYSICIAN INTERPRETATION: Left Ventricle: Left ventricular systolic function is normal, with an estimated ejection fraction of 60-65%. There are no regional wall motion abnormalities. The left ventricular cavity size is normal. Spectral Doppler shows a normal pattern of left ventricular diastolic filling. Left Atrium: The left atrium is normal in size. Right Ventricle: The right ventricle is normal in size. There is normal right ventricular global systolic function. Right Atrium: The right atrium is normal in size. Aortic Valve: The aortic valve appears structurally normal. There is no evidence of aortic valve regurgitation. The peak instantaneous gradient of the aortic valve is 7.6 mmHg. The mean gradient of the aortic valve is 3.0 mmHg. Mitral Valve: The mitral valve is normal in structure. There is trace mitral valve regurgitation. Tricuspid Valve: The tricuspid valve is structurally normal. There is trace tricuspid regurgitation. Pulmonic Valve: The pulmonic valve is structurally normal. There is no indication of pulmonic valve regurgitation. Pericardium: There is no pericardial effusion noted. Aorta: The aortic root is normal. Systemic Veins: The inferior vena cava appears to be of normal size. In comparison to the previous echocardiogram(s): Normal Echo. CONCLUSIONS: 1. Left ventricular systolic function is normal with a 60-65% estimated ejection fraction. 2. Normal Echo. QUANTITATIVE DATA SUMMARY: 2D MEASUREMENTS: Normal Ranges: Ao Root d: 2.70 cm (2.0-3.7cm) LAs: 3.30 cm (2.7-4.0cm) RVIDd: 3.60 cm (0.9-3.6cm) IVSd: 0.90 cm (0.6-1.1cm) LVPWd: 0.80 cm (0.6-1.1cm) LVIDd: 4.50 cm (3.9-5.9cm) LVIDs: 3.50 cm LV Mass Index: 59.2 g/m2 LV % FS 22.2 % LV SYSTOLIC FUNCTION BY 2D PLANIMETRY (MOD): Normal Ranges: EF-A4C View: 60.5 % (>=55%) LV DIASTOLIC FUNCTION: Normal Ranges: MV Peak E: 0.88 m/s (0.7-1.2 m/s) MV Peak A: 0.54 m/s (0.42-0.7 m/s) E/A Ratio: 1.62 (1.0-2.2) MV lateral e' 0.22 m/s MV medial e' 0.10 m/s E/e' Ratio: 4.00 (<8.0) MITRAL VALVE: Normal Ranges: MV Vmax: 1.00 m/s (<=1.3m/s) MV peak P.0 mmHg (<5mmHg) MV mean P.0 mmHg (<48mmHg) MITRAL INSUFFICIENCY: Normal Ranges: MR Vmax: 265.00 cm/s AORTIC VALVE: Normal Ranges: AoV Vmax: 1.38 m/s (<=1.7m/s) AoV Peak P.6 mmHg (<20mmHg) AoV Mean P.0 mmHg (1.7-11.5mmHg) LVOT Max Brody: 0.82 m/s (<=1.1m/s) AoV VTI: 28.40 cm (18-25cm) LVOT VTI: 18.00 cm LVOT Diameter: 2.30 cm (1.8-2.4cm) AoV Area, VTI: 2.63 cm2 (2.5-5.5cm2) AoV Area,Vmax: 2.46 cm2 (2.5-4.5cm2) AoV Dimensionless Index: 0.63 TRICUSPID VALVE/RVSP: Normal Ranges: Peak TR Velocity: 2.06 m/s RV Syst Pressure: 20.0 mmHg (< 30mmHg) PULMONIC VALVE: Normal Ranges: PV Max Brody: 0.6 m/s (0.6-0.9m/s) PV Max P.5 mmHg [id number] Bisi Lira MD, [facility] Electronically signed on 10/23/2023 at 3:40:40 PM Final [facility] Work Phone: Alanine aminotransferase [En zymatic activity/volume] in Serum or PlasmaOrdered By: Angel Ca on 10-20-2023 ALT [Catalytic activity/Vol] 13 U/L Normal 7-52 [facility] Comment on above: Performed By: #### U HCG, UA #### [facility] [address] [place] [address] [place] Albumin [Mass/volume] in Ser um or Plasma by Bromocresol green (BCG) dye binding methoOrdered By: Angel Ca on 10-20-2023 Albumin BCG dye [Mass/Vol] 4.3 g/dL 3.5-5.7 [facility] Alkaline phosphatase [Enzyma tic activity/volume] in Serum or PlasmaOrdered By: Angel Ca on 10-20-2023 ALP [Catalytic activity/Vol] 95 U/L Normal 34-104 [facility] Comment on above: Performed By: #### U HCG, UA #### [facility] [address] [place] [address] [place] Aspartate aminotransferase [ Enzymatic activity/volume] in Serum or PlasmaOrdered By: Angel Ca on 10-20-2023 AST [Catalytic activity/Vol] 16 U/L Normal 13-39 [facility] Comment on above: Performed By: #### U HCG, UA #### [facility] [address] Automated urine color determ inationOrdered By: nAgel Ca on 10-20-2023 Color (U) Yellow Normal Yellow [facility] Comment on above: Order Comment: Name Collection Type:: Clean-Voided Midstream Performed By: #### U HCG, UA #### [facility] [address] Basic Metabolic Panelon 10-04 Creatinine Clr Calc Pharmacy 169.32 Normal [facility]ending [facility] Comment on above: Performed By: #### U HCG, UA #### [facility] [address] GFR/1.73 sq M.predicted MDRD (S/P/Bld) [Vol rate/Area] mL/min/{1.73_m2} Normal [facility] Comment on above: Performed By: #### U HCG, UA #### [facility] [address] Bilirubin Test strip Ql (U)O rdered By: Angel Ca on 10-20-2023 Bilirubin Ql (U) Negative Negative [facility] Bilirubin.direct [Mass/volum e] in Serum or PlasmaOrdered By: Angel Ca on 10-20-2023 Bilirubin.direct [Mass/Vol] 0.10 mg/dL 0.03-0.18 [facility] Bilirubin.total [Mass/volume ] in Serum or PlasmaOrdered By: Angel Ca on 10-20-2023 Bilirubin [Mass/Vol] 0.4 mg/dL Normal 0.3-1.0 [facility] Comment on above: Performed By: #### U HCG, UA #### [facility] [address] [place] [id number] [place] Calcium [Mass/volume] in Ser um or PlasmaOrdered By: Angel Ca on 10-20-2023 Calcium [Mass/Vol] 9.4 mg/dL Normal 8.6-10.3 [facility] Comment on above: Performed By: #### U HCG, UA #### [facility] [address] [place] [address] [place] Carbon dioxide, total [Moles /volume] in Serum or PlasmaOrdered By: Angel Ca on 10-20-2023 CO2 [Moles/Vol] 27.5 mmol/L Normal 21.0-31.0 [facility] Comment on above: Performed By: #### U HCG, UA #### [facility] [address] [place] [address] [place] Chloride [Moles/volume] in S onesimo or PlasmaOrdered By: Angel Ca on 10-20-2023 Chloride [Moles/Vol] 105 mmol/L Normal 98-107 [facility] Comment on above: Performed By: #### U HCG, UA #### [facility] [address] [place] [address] [place] Creatinine [Mass/volume] in Serum or PlasmaOrdered By: Angel Ca on 10-20-2023 Creatinine [Mass/Vol] 0.64 mg/dL Normal 0.60-1.20 [facility] Comment on above: Performed By: #### U HCG, UA #### [facility] [address] [place] [address] [place] ECG 12 lead ECGon 10-20-2023 ECG 12 lead ECG [facility] [place] [address] [place] [address] Electrocardiograph Report Signed Patient: Sivakumar Prabhakar MR#: [id number] : 2005 Acct:[id number] Age/Sex: 17 / F ADM Date: 10/20/23 Loc: ER Room: Type: [facility] ER Attending Dr: Ordering Provider: Angel Ca DO Date of Service: 10/20/23 ECG/ECG 12 lead ECG: Dizziness Copies to: Test Reason : Blood Pressure : 113/059 mmHG Vent. Rate : 055 BPM Atrial Rate : 055 BPM P-R Int : 176 ms QRS Dur : 124 ms QT Int : 412 ms P-R-T Axes : 075 073 078 degrees QTc Int : 394 ms Sinus bradycardia Nonspecific intraventricular conduction delay nonspecific ST findings Confirmed by Angel Ca DO ([id number]) on 10/21/2023 7:21:15 AM Referred By: Electronically Signed By:Angel Ca DO Transcribed By: MUS Signed By Angel Ca DO 0721 Normal [facility] Erythrocyte distribution wid th [Ratio] by Automated countOrdered By: Angel Ca on 10-20-2023 Erythrocyte distribution width (RBC) [Ratio] 15.7 % High 11.9-15.3 [facility] Comment on above: Performed By: #### U HCG, UA #### [facility] [address] [place] [address] Erythrocytes [#/volume] in B lood by Automated countOrdered By: Angel Ca on 10-20-2023 RBC (Bld) [#/Vol] 4.83 10*6/uL Normal 3.60-5.00 [facility] Comment on above: Performed By: #### U HCG, UA #### [facility] [address] [place] [address] [place] Glucose [Mass/volume] in Ser um or PlasmaOrdered By: Angel Ca on 10-20-2023 Glucose [Mass/Vol] 84 mg/dL Normal 70-100 [facility] Comment on above: ADA recommended refe rence rangeRandom Glucose Reference Range is dependent on time and content of last meal. Glucose of more than 200 mg/dL in a nonstressed, ambulatory subject supports the diagnosis of Diabetes Mellitus. Result Comment: [place] om Glucose Reference Range is dependent on time and content of last meal. Glucose of more than 200 mg/dL in a nonstressed, ambulatory subject supports the diagnosis of Diabetes Mellitus. ADA recommended reference range Performed By: #### U HCG, UA #### [facility] [address] [place], [place] [id number] [place] HCG ( test) IA.rapi d Ql (U)Ordered By: Angel Ca on 10-20-2023 HCG ( test) Ql (U) Negative [facility] HCG,Urineon 10-20-2023 Beta HCG ( test) Ql (U) Negative Normal [facility] Comment on above: Order Comment: Name Collection Type:: Clean-Voided Midstream Result Comment: PERF ORMED BY: [place] [address] PATHOLOGIST BEEF SKINNER NEVA PEDERSON M.D. Performed By: #### U HCG, UA #### [address] Hematocrit [Volume Fraction] of Blood by Automated countOrdered By: Angel Ca on 10-20-2023 Hematocrit (Bld) [Volume fraction] 39.4 % Normal 34.0-46.4 [facility] Comment on above: Performed By: #### U HCG, UA #### [address] Hemoglobin [Mass/volume] in BloodOrdered By: Angel Ca on 10-20-2023 Hemoglobin (Bld) [Mass/Vol] 12.7 g/dL Normal 11.8-15.4 [facility] Comment on above: Performed By: #### U HCG, UA #### [address] Hepatic Panelon 10-20-2023 Albumin [Mass/Vol] 4.3 g/dL Normal 3.5-5.7 The [facility] of [facility] Comment on above: Performed By: #### U HCG, UA #### [address] Bilirubin,Indirect 0.3 mg/dL Normal The On license of [facility] Comment on above: Performed By: #### U HCG, UA #### [address] Bilirubin.indirect [Mass/Vol] 0.10 mg/dL Normal 0.03-0.18 The [facility]ending [facility] Comment on above: Performed By: #### U HCG, UA #### [address] Ketones Auto test strip (U) [Mass/Vol]Ordered By: Angel Ca on 10-20-2023 Ketones (U) [Mass/Vol] Negative Negative [facility] Leukocytes [#/volume] correc gretel for nucleated erythrocytes in Blood by Automated counOrdered By: Angel Ca on 10-20-2023 WBC corrected for nucl RBC Auto (Bld) [#/Vol] 8.0 10*3/uL 3.8-11.6 [facility] Leukocytes [#/volume] in Blo od by Automated countOrdered By: Angel Ca on 10-20-2023 WBC (Bld) [#/Vol] 8.0 10*3/uL Normal 3.8-11.6 [facility] Comment on above: Performed By: #### U HCG, UA #### [facility] [address] [place] [address] Lipase [Enzymatic activity/v olume] in Serum or PlasmaOrdered By: Angel Ca on 10-20-2023 Lipase [Catalytic activity/Vol] 9.0 U/L Low 11.0-82.0 [facility] Comment on above: Result Comment: PERF ORMED BY: [place] [address] PATHOLOGIST BEEF SKINNER NEVA PEDERSON M.D. Performed By: #### U HCG, UA #### [facility] [address] [place] [address] MCH [Entitic mass] by Automa gretel countOrdered By: Angel Ca on 10-20-2023 MCH (RBC) [Entitic mass] 26.2 pg Normal 24.7-34.3 [facility] Comment on above: Performed By: #### U HCG, UA #### [facility] [address] [place] [address] MCHC Auto (RBC) [Mass/Vol]Or dered By: Angel Ca on 10-20-2023 MCHC (RBC) [Mass/Vol] 32.1 g/dL 32.0-35.0 [facility] MCV [Entitic volume] by Auto mated countOrdered By: Angel Lanny on 10-20-2023 MCV (RBC) [Entitic vol] 81.6 fL Normal 80-100 [facility] Comment on above: Performed By: #### U HCG, UA #### [facility] [address] [place] [address] [place] Monocyte distribution width [Entitic volume] in Blood by AutomatedOrdered By: Angelnatanael Ca on 10-20-2023 Monocyte distribution width Auto (Bld) [Entitic vol] 17.16 % 0.00-20.00 [facility] Nitrite Test strip Ql (U)Ord ered By: Angel Ca on 10-20-2023 Nitrite Ql (U) Negative Negative [facility] No Panel InformationOrdered By: Angel Ca on 10-20-2023 Estimated GFR (CKD-EPI) > 60.0 mL/Min [facility] Creatinine Clearance (Chem 169.32 [facility] Platelet mean volume [Entiti c volume] in Blood by Automated countOrdered By: Angel Ca on 10-20-2023 Platelet mean volume (Bld) [Entitic vol] 10.4 fL Normal 6.3-10.7 [facility] Comment on above: Performed By: #### U HCG, UA #### [facility] [address] [place] [address] [place] Platelets [#/volume] in Bloo d by Automated countOrdered By: Angel Ca on 10-20-2023 Platelets (Bld) [#/Vol] 284 10*3/uL Normal 150-450 [facility] Comment on above: Performed By: #### U HCG, UA #### [facility] [address] [place] [address] [place] Potassium [Moles/volume] in Serum or PlasmaOrdered By: Angel Ca on 10-20-2023 Potassium [Moles/Vol] 4.2 mmol/L Normal 3.5-5.1 [facility] Comment on above: Performed By: #### U HCG, UA #### [facility] [address] [place] [address] [place] Protein Auto test strip (U) [Mass/Vol]Ordered By: Angel Garzay on 10-20-2023 Protein (U) [Mass/Vol] Negative Negative [facility] Protein [Mass/volume] in Ser um or PlasmaOrdered By: Angel Ca on 10-20-2023 Protein [Mass/Vol] 7.0 g/dL Normal 6.4-8.9 [facility] Comment on above: Performed By: #### U HCG, UA #### [address] Scan and CBCon 10-20-2023 Anisocytosis Ql (Bld) Slight Normal [facility] Comment on above: Performed By: #### U HCG, UA #### [address] Basophils (Bld) [#/Vol] 0.0 10*3/uL Normal 0.0-0.2 [facility] Comment on above: Performed By: #### U HCG, UA #### [place] [address] [place] Basophils/100 WBC (Bld) 0.6 % Normal . T mariana [facility] Comment on above: Performed By: #### U HCG, UA #### [place] [address] [place] Eosinophils (Bld) [#/Vol] 0.1 10*3/uL Normal 0.0-0.45 [facility] Comment on above: Performed By: #### U HCG, UA #### [place] [address] [place] Eosinophils/100 WBC (Bld) 0.8 % Normal . [facility] Comment on above: Performed By: #### U HCG, UA #### [address] Hypochromasia Slight Normal [facility] Comment on above: Performed By: #### U HCG, UA #### [place] [address] [place] Lymphocytes (Bld) [#/Vol] 1.8 10*3/uL Normal 1.00-4.8 [facility] Comment on above: Performed By: #### U HCG, UA #### [facility] [address] [place] [address] [place] Lymphocytes/100 WBC (Bld) 23.0 % Normal . [facility] Comment on above: Performed By: #### U HCG, UA #### [facility] [address] [place] [address] Mean Corpuscular HGB Conc 32.1 g/dL Normal 32.0-35.0 [facility] Comment on above: Performed By: #### U HCG, UA #### [place] [address] [place] Microcytosis Slight Normal [facility] Comment on above: Performed By: #### U HCG, UA #### [place] [address] [place] Monocytes (Bld) [#/Vol] 0.5 10*3/uL Normal 0.0-0.8 [facility] Comment on above: Performed By: #### U HCG, UA #### [place] [address] [place] Monocytes/100 WBC (Bld) 17.16 % Normal 0.00-20.00 [facility] Comment on above: Performed By: #### U HCG, UA #### [place] [address] [place] Monocytes/100 WBC (Bld) 6.5 % Normal . [facility] Comment on above: Performed By: #### U HCG, UA #### [facility] [address] [place] [address] [place] Neutrophils (Bld) [#/Vol] 5.5 10*3/uL Normal 1.8-7.7 [facility] Comment on above: Performed By: #### U HCG, UA #### [place] [address] [place] Neutrophils/100 WBC (Bld) 69.1 % Normal . [facility] Comment on above: Performed By: #### U HCG, UA #### [address] NRBC% 0.1 /100{WBC} Normal 0-0.5 [facility] Comment on above: Performed By: #### U HCG, UA #### [address] Ovalocytes Slight Normal [facility] Comment on above: Performed By: #### U HCG, UA #### [address] Platelet Estimate Normal Normal Normal [facility] Comment on above: Performed By: #### U HCG, UA #### [address] Platelet Morphology Normal Normal Normal The [facility] Comment on above: Result Comment: PERF ORMED BY: [place] [address] PATHOLOGIST BEEF SKINNER NEVA PEDERSON M.D. Performed By: #### U HCG, UA #### [address] Poikilocytosis Slight Normal [facility] Comment on above: Performed By: #### U HCG, UA #### [address] Polychromasia Slight Normal [facility] Comment on above: Performed By: #### U HCG, UA #### [address] Serum globulin measurement b y calculation (mass/volume)Ordered By: Angel Ca on 10-20-2023 Globulin (S) [Mass/Vol] 2.7 g/dL Normal [facility] Comment on above: Performed By: #### U HCG, UA #### [address] Serum or plasma albumin/glob ulin mass ratioOrdered By: Angel Ca on 10-20-2023 Albumin/Globulin [Mass ratio] 1.6 {ratio} Normal [facility] Comment on above: Performed By: #### U HCG, UA #### [address] Serum or plasma anion gap de terminationOrdered By: Angel Ca on 10-20-2023 Anion gap [Moles/Vol] 10.7 mmol/L Normal 6.0-15.0 [facility] Comment on above: Performed By: #### U HCG, UA #### [address] Serum or plasma non-glucuron idated bilirubin measurement (mass/volume)Ordered By: Angel Ca on 10-20-2023 Bilirubin.indirect [Mass/Vol] 0.3 mg/dL [facility] Sodium [Moles/volume] in Ser um or PlasmaOrdered By: Angel Ca on 10-20-2023 Sodium [Moles/Vol] 139 mmol/L Normal 136-145 [facility] Comment on above: Performed By: #### U HCG, UA #### [address] Specific gravity Auto test s trip (U) [Rel density]Ordered By: Angel Ca on 10-20-2023 Specific gravity (U) [Rel density] 1.024 1.001-1.030 [facility] Urea nitrogen [Mass/volume] in Serum or PlasmaOrdered By: Angel Ca on 10-20-2023 Urea nitrogen [Mass/Vol] 12 mg/dL Normal 7-25 [facility] Comment on above: Performed By: #### U HCG, UA #### [address] Urinalysison 10-20-2023 Appearance (U) Clear Normal Clear [facility] Comment on above: Order Comment: Name Collection Type:: Clean-Voided Midstream Performed By: #### U HCG, UA #### [address] Bilirubin,Urine Negative Normal Negative [facility] Comment on above: Order Comment: Name Collection Type:: Clean-Voided Midstream Performed By: #### U HCG, UA #### [facility] [address] [place] [id number] [place] Glucose Ql (U) Normal Normal Normal [facility] Comment on above: Order Comment: Name Collection Type:: Clean-Voided Midstream Performed By: #### U HCG, UA #### [facility] [address] [place] [id number] [place] Ketones Ql (U) Negative Normal Negative [facility] Comment on above: Order Comment: Name Collection Type:: Clean-Voided Midstream Performed By: #### U HCG, UA #### [place] [address] [place] Leukocyte esterase Test strip Ql (U) Negative Normal Negative [facility] Comment on above: Order Comment: Name Collection Type:: Clean-Voided Midstream Performed By: #### U HCG, UA #### [place] [address] [place] Nitrite,Urine Negative Normal Negative [facility] Comment on above: Order Comment: Name Collection Type:: Clean-Voided Midstream Performed By: #### U HCG, UA #### [place] [address] [place] Occult Blood,Urine Negative Normal Negative The [facility] Comment on above: Order Comment: Name Collection Type:: Clean-Voided Midstream Performed By: #### U HCG, UA #### [place] [address] [place] Protein,Urine Negative Normal Negative [facility] Comment on above: Order Comment: Name Collection Type:: Clean-Voided Midstream Performed By: #### U HCG, UA #### [facility] [address] [place] [id number] [place] Specificy [place],Urine 1.024 Normal 1.001-1.030 [facility] Comment on above: Order Comment: Name Collection Type:: Clean-Voided Midstream Performed By: #### U HCG, UA #### [place] [id number] [place] Urobilinogen,Urine Normal Normal Normal The On license [facility] Comment on above: Order Comment: Name Collection Type:: Clean-Voided Midstream Performed By: #### U HCG, UA #### [facility] [address] [place] [id number] [facility] Urine clarity by refractomet ry automatedOrdered By: Angel Ca on 10-20-2023 Clarity Refractometry automated (U) Clear Clear [facility] Urine glucose measurement by automated test strip (mass/volume)Ordered By: Angel Ca on 10-20-2023 Glucose Auto test strip (U) [Mass/Vol] Normal mg/dL Normal [facility] Urine hemoglobin detection b y automated test stripOrdered By: Angel Ca on 10-20-2023 Hemoglobin Auto test strip Ql (U) Negative Negative [facility] Urine leukocyte esterase det ection by automated test stripOrdered By: Angel Ca on 10-20-2023 Leukocyte esterase Auto test strip Ql (U) Negative Negative [facility] Urine pH measurement by auto mated test stripOrdered By: Angel Ca on 10-20-2023 pH (U) 7.5 [pH] Normal 5.0-9.0 [facility] Comment on above: Order Comment: Name Collection Type:: Clean-Voided Midstream Performed By: #### U HCG, UA #### [facility] [address] [place] [address] Urobilinogen Auto test strip (U) [Mass/Vol]Ordered By: Angel Ca on 10-20-2023 Urobilinogen (U) [Mass/Vol] Normal mg/dL Normal [facility] ECG 12 Leadon 09-30-2023 [facility] Work Phone: Normal sinus rhythm 69 bpm NC interval 164 ms QRS duration 120 ms QTc 400 ms nonspecific intraventricular conduction delay pattern, leads to 3 and aVF have a slurring of the initial QRS upstroke, significance of which is unclear, the thought of ventricular preexcitation came to my mind, a previous EKG from August 2023 does not have the same slurring of the initial QRS, NC interval is longer on the EKG from August 2023, and that particular EKG does not have an incomplete right bundle branch block pattern [facility] Work Phone: Thyroid Stim Hormone w/Rflxo n 08-29-2023 Thyroid Stim Hormone w/Rflx 1.36 u[iU]/mL Normal 0.45-5.33 [facility] Comment on above: Order Comment: Name Collection Type:: Clean-Voided Midstream Result Comment: PERF ORMED BY: [place] [address] PATHOLOGIST BEEF SKINNER NEVA PEDERSON M.D. Performed By: #### U HCG, UA #### [address] Thyrotropin [Units/volume] i n Serum or PlasmaOrdered By: Soila Jacobs on 08-29-2023 TSH Qn 1.36 m[IU]/L 0.45-5.33 [facility] ECG 12 lead ECGon 08-05-2023 ECG 12 lead ECG [facility] Main [place] [address] [place] [address] Electrocardiograph Report Signed Patient: Sivakumar Prabhakar MR#: [id number] : 2005 Acct:[id number] Age/Sex: 17 / F ADM Date: 08/05/23 Loc: Room: [address] [place] [address] Type: ADM IN Attending Dr: Jamaal Yoder MD Ordering Provider: Jamaal Yoder MD Date of Service: 08/05/2312/27/499 ECG/ECG 12 lead ECG: anti psychptic treatment Copies to: Test Reason : Blood Pressure : / mmHG Vent. Rate : 070 BPM Atrial Rate : 070 BPM P-R Int : 198 ms QRS Dur : 104 ms QT Int : 386 ms P-R-T Axes : 051 059 048 degrees QTc Int : 416 ms Normal sinus rhythm Normal ECG No previous ECGs available Confirmed by LLUVIA TIMMONS FACDOTTIE Lewis ([id number]) on 08/05/2023 5:33:28 PM Referred By: Electronically Signed By:DOTTIE TEIXEIRA MD FACC Transcribed By: MUS Signed By Luis Teixeira MD 08/05/231732 Normal [facility] Alanine aminotransferase [En zymatic activity/volume] in Serum or PlasmaOrdered By: Christian Da Silva on 08-04-2023 ALT [Catalytic activity/Vol] 17 U/L Normal 7-52 [facility] Comment on above: Performed By: #### T SH3 wRFLX, ETOH, CMP, CBC, [id number], LIPID #### [facility] [address] [place] [id number] [place] Albumin [Mass/volume] in Ser um or Plasma by Bromocresol green (BCG) dye binding methoOrdered By: Christian Da Silva on 08-04-2023 Albumin BCG dye [Mass/Vol] 4.6 g/dL 3.5-5.7 [facility] Alkaline phosphatase [Enzyma tic activity/volume] in Serum or PlasmaOrdered By: Christian Da Silva on 08-04-2023 ALP [Catalytic activity/Vol] 91 U/L Normal 34-104 [facility] Comment on above: Performed By: #### T SH3 wRFLX, ETOH, CMP, CBC, [id number], LIPID #### [facility] [address] Amphetamine Screen Ql (U)Ord ered By: Christian Da Silva on 08-04-2023 Amphetamines Ql (U) Negative Negative [facility] Aspartate aminotransferase [ Enzymatic activity/volume] in Serum or PlasmaOrdered By: Christian Da Silva on 08-04-2023 AST [Catalytic activity/Vol] 22 U/L Normal 13-39 [facility] Comment on above: Performed By: #### T SH3 wRFLX, ETOH, CMP, CBC, [id number], LIPID #### [facility] [address] [place] [id number] [place] Automated basophil %Ordered By: Christian Da Silva on 08-04-2023 Basophils/100 WBC (Bld) 0.6 % Normal . [facility] Comment on above: Performed By: #### T SH3 wRFLX, ETOH, CMP, CBC, [id number], LIPID #### [facility] [address] [place] [id number] [place] Automated basophil countOrde red By: Christian Da Silva on 10-01-2023 Basophils (Bld) [#/Vol] 0.1 10*3/uL Normal 0.0-0.2 [facility] Comment on above: Result Comment: PERF ORMED BY: [place] [address] PATHOLOGIST BEEF SKINNER NEVA PEDERSON M.D. Performed By: #### T SH3 wRFLX, ETOH, CMP, CBC, [id number], LIPID #### [address] Automated blood monocyte cou ntOrdered By: Christian Da Silva on 08-04-2023 Monocytes (Bld) [#/Vol] 0.7 10*3/uL Normal 0.0-0.8 [facility] Comment on above: Performed By: #### T SH3 wRFLX, ETOH, CMP, CBC, [id number], LIPID #### [address] Automated eosinophil %Ordere d By: Christian Da Silva on 08-04-2023 Eosinophils/100 WBC (Bld) 1.4 % Normal . [facility] Comment on above: Performed By: #### T SH3 wRFLX, ETOH, CMP, CBC, [id number], LIPID #### [address] Automated eosinophil countOr dered By: Christian Da Silva on 08-04-2023 Eosinophils (Bld) [#/Vol] 0.1 10*3/uL Normal 0.0-0.45 [facility] Comment on above: Performed By: #### T SH3 wRFLX, ETOH, CMP, CBC, [id number], LIPID #### [address] Automated monocyte %Ordered By: Christian Da Silva on 08-04-2023 Monocytes/100 WBC (Bld) 8.2 % Normal . [facility] Comment on above: Performed By: #### T SH3 wRFLX, ETOH, CMP, CBC, [id number], LIPID #### [address] Automated neutrophil %Ordere d By: Christian Da Silva on 08-04-2023 Neutrophils/100 WBC (Bld) 58.0 % Normal . [facility] Comment on above: Performed By: #### T SH3 wRFLX, ETOH, CMP, CBC, [id number], LIPID #### [facility] [address] Automated urine color determ inationOrdered By: Christian Da Silva on 08-04-2023 Color (U) Yellow Normal Yellow [facility] Comment on above: Order Comment: Name Collection Type:: Clean-Voided Midstream Performed By: #### U HCG, URDS, UA #### [facility] [address] Barbiturates [Presence] in U rine by Screen methodOrdered By: Christian Da Silva on 08-04-2023 Barbiturates Screen Ql (U) Negative Negative [facility] Benzodiazepines Screen Ql (U )Ordered By: Christian Da Silva on 08-04-2023 Benzodiazepines Ql (U) Negative Negative [facility] Benzoylecgonine [Presence] i n Urine by Screen methodOrdered By: Christian Da Silva on 08-04-2023 Benzoylecgonine Screen Ql (U) Negative Negative [facility] Bilirubin Test strip Ql (U)O rdered By: Christian Da Silva on 08-04-2023 Bilirubin Ql (U) Negative Negative [facility] Bilirubin.total [Mass/volume ] in Serum or PlasmaOrdered By: Christian Da Silva on 08-04-2023 Bilirubin [Mass/Vol] 0.3 mg/dL Normal 0.3-1.0 [facility] Comment on above: Performed By: #### T SH3 wRFLX, ETOH, CMP, CBC, [id number], LIPID #### [facility] [address] Calcium [Mass/volume] in Ser um or PlasmaOrdered By: Christian Da Silva on 08-04-2023 Calcium [Mass/Vol] 9.3 mg/dL Normal 8.6-10.3 [facility] Comment on above: Performed By: #### T SH3 wRFLX, ETOH, CMP, CBC, [id number], LIPID #### [facility] [address] [place] [id number] [place] Cannabinoids [Presence] in U rine by Screen methodOrdered By: Christian Da Silva on 08-04-2023 Cannabinoids Screen Ql (U) Negative Negative [facility] Comment on above: These are unconfirme d results and should not be used for legal purposes. Drug Cut-Off Concentration: AMPH 1000 ng/mL JATIN 200 ng/mL VINCENT 200 ng/mL COCM 300 ng/mL OP 300 ng/mL PCP 25 ng/mL THC 20 ng/mL Carbon dioxide, total [Moles /volume] in Serum or PlasmaOrdered By: Christian Da Silva on 08-04-2023 CO2 [Moles/Vol] 24.8 mmol/L Normal 21.0-31.0 [facility] Comment on above: Performed By: #### T SH3 wRFLX, ETOH, CMP, CBC, [id number], LIPID #### [facility] [address] [place] [id number] [place] Chloride [Moles/volume] in S onesimo or PlasmaOrdered By: Christian Da Silva on 08-04-2023 Chloride [Moles/Vol] 104 mmol/L Normal 98-107 [facility] Comment on above: Performed By: #### T SH3 wRFLX, ETOH, CMP, CBC, [id number], LIPID #### [facility] [address] [place] [address] [place] Cholesterol [Mass/volume] in Serum or PlasmaOrdered By: Christian Da Silva on 08-04-2023 Cholesterol [Mass/Vol] 170 mg/dL Normal 140-200 [facility] Comment on above: Chol less than 200 m g/dl low riskChol 201-239 mg/dl borderline riskChol 240 mg/dl and greater high risk Result Comment: Chol less than 200 mg/dl low risk Chol 201-239 mg/dl borderline risk Chol 240 mg/dl and greater high risk Performed By: #### T SH3 wRFLX, ETOH, CMP, CBC, [id number], LIPID #### [facility] [address] [place] [address] [place] Cholesterol in LDL Calc [Mas s/Vol]Ordered By: Christian Da Silva on 08-04-2023 Cholesterol in LDL [Mass/Vol] 88 mg/dL 0-100 [facility] Comment on above: LDL ATP III CLASSIFI CATIONLDL less than 100 mg/dL OptimalLDL 100-129 mg/dL Near or above optimalLDL 130-159 mg/dL Borderline highLDL 160-189 mg/dL HighLDL greater than 189 mg/dL Very high Cholesterol in VLDL Calc [Ma ss/Vol]Ordered By: Christian Da Silva on 08-04-2023 Cholesterol in VLDL [Mass/Vol] 33 mg/dL [facility] Complete Blood Count Auto Di ffon 08-04-2023 Mean Corpuscular HGB Conc 32.8 g/dL Normal 32.0-35.0 [facility] Comment on above: Performed By: #### T SH3 wRFLX, ETOH, CMP, CBC, [id number], LIPID #### [address] Monocytes/100 WBC (Bld) 17.93 % Normal 0.00-20.00 [facility] Comment on above: Performed By: #### T SH3 wRFLX, ETOH, CMP, CBC, [id number], LIPID #### [facility] [address] NRBC% 0.1 /100{WBC} Normal 0-0.5 [facility] Comment on above: Performed By: #### T SH3 wRFLX, ETOH, CMP, CBC, [id number], LIPID #### [facility] [address] Comprehensive Metabolic Pane kaleb 08-04-2023 Albumin [Mass/Vol] 4.6 g/dL Normal 3.5-5.7 [facility] Comment on above: Performed By: #### T SH3 wRFLX, ETOH, CMP, CBC, [id number], LIPID #### [facility] [address] [place] [address] Creatinine Clr Calc Pharmacy 164.68 Normal [facility] Comment on above: Result Comment: PERF ORMED BY: [place] [address] PATHOLOGIST BEEF SKINNER NEVA PEDERSON M.D. Performed By: #### T SH3 wRFLX, ETOH, CMP, CBC, [id number], LIPID #### [address] GFR/1.73 sq M.predicted MDRD (S/P/Bld) [Vol rate/Area] mL/min/{1.73_m2} Normal [facility] Comment on above: Performed By: #### T SH3 wRFLX, ETOH, CMP, CBC, [id number], LIPID #### [address] Creatinine [Mass/volume] in Serum or PlasmaOrdered By: Christian Da Silva on 08-04-2023 Creatinine [Mass/Vol] 0.67 mg/dL Normal 0.60-1.20 [facility] Comment on above: Performed By: #### T SH3 wRFLX, ETOH, CMP, CBC, [id number], LIPID #### [address] Drug Screen,Urineon 08-04-20 23 Amphetamine Screen,Urine Negative Normal Negative [facility] Comment on above: Performed By: #### U HCG, UA #### [address] Barbiturate Screen,Urine Negative Normal Negative [facility] Comment on above: Performed By: #### U HCG, UA #### [address] Benzodiazepines Screen,Urine Negative Normal Negative [facility] Comment on above: Performed By: #### U HCG, UA #### [address] Cannabinoid Screen,Urine Negative Normal Negative [facility] Comment on above: Result Comment: Thes e are unconfirmed results and should not be used for legal purposes. Drug Cut-Off Concentration: AMPH 1000 ng/mL JATIN 200 ng/mL VINCENT 200 ng/mL COCM 300 ng/mL OP 300 ng/mL PCP 25 ng/mL THC 20 ng/mL PERFORMED BY: [place] [id number] PATHOLOGIST BEEF SKINNER NEVA PEDERSON M.D. Performed By: #### U HCG, UA #### [address] Cocaine Screen,Urine Negative Normal Negative [facility] Comment on above: Performed By: #### U HCG, UA #### [facility] [address] Opiate Screen,Urine Negative Normal Negative [facility] Comment on above: Performed By: #### U HCG, UA #### [address] Phencyclidine Screen,Urine Negative Normal Negative [facility] Comment on above: Performed By: #### U HCG, UA #### [address] Erythrocyte distribution wid th [Ratio] by Automated countOrdered By: Christian Da Silva on 08-04-2023 Erythrocyte distribution width (RBC) [Ratio] 14.8 % Normal 11.9-15.3 [facility] Comment on above: Performed By: #### T SH3 wRFLX, ETOH, CMP, CBC, [id number], LIPID #### [address] Erythrocytes [#/volume] in B lood by Automated countOrdered By: Christian Da Silva on 08-04-2023 RBC (Bld) [#/Vol] 4.47 10*6/uL Normal 3.60-5.00 [facility] Comment on above: Performed By: #### T SH3 wRFLX, ETOH, CMP, CBC, [id number], LIPID #### [facility] [address] [place] [address] Ethanol [Mass/volume] in Ser um or PlasmaOrdered By: Christian Da Silva on 08-04-2023 Ethanol [Mass/Vol] mg/dL Normal [facility] Comment on above: Performed By: #### T SH3 wRFLX, ETOH, CMP, CBC, [id number], LIPID #### [address] Ethanol [Mass/Vol] TNP [facility] Comment on above: Test not performed Ethyl Alcohol Profileon Percent Ethanol Not performed Normal The On license of [facility] Comment on above: Result Comment: PERF ORMED BY: [place] [address] PATHOLOGIST BEEF SKINNER NEVA PEDERSON M.D. Performed By: #### T SH3 wRFLX, ETOH, CMP, CBC, [id number], LIPID #### [facility] [address] [id number] [place] Glucose [Mass/volume] in Ser um or PlasmaOrdered By: Christian Da Silva on 08-04-2023 Glucose [Mass/Vol] 86 mg/dL Normal 70-100 [facility] Comment on above: ADA recommended refe rence rangeRandom Glucose Reference Range is dependent on time and content of last meal. Glucose of more than 200 mg/dL in a nonstressed, ambulatory subject supports the diagnosis of Diabetes Mellitus. Result Comment: [place] om Glucose Reference Range is dependent on time and content of last meal. Glucose of more than 200 mg/dL in a nonstressed, ambulatory subject supports the diagnosis of Diabetes Mellitus. ADA recommended reference range Performed By: #### T SH3 wRFLX, ETOH, CMP, CBC, [id number], LIPID #### [facility] [address] [place] [address] [place] HCG ( test) IA.rapi d Ql (U)Ordered By: Christian Da Silva on 08-04-2023 HCG ( test) Ql (U) Negative [facility] HCG,Urineon 08-04-2023 Beta HCG ( test) Ql (U) Negative Normal The Pending Sale To [facility] Comment on above: Order Comment: Name Collection Type:: Clean-Voided Midstream Result Comment: PERF ORMED BY: [place] [address] PATHOLOGIST BEEF SKINNER NEVA PEDERSON M.D. Performed By: #### U HCG, URDS, UA #### [facility] [address] [place], [place] [address] [place] [address] Hematocrit [Volume Fraction] of Blood by Automated countOrdered By: Christian Da Silva on 08-04-2023 Hematocrit (Bld) [Volume fraction] 35.7 % Normal 34.0-46.4 [facility] Comment on above: Performed By: #### T SH3 wRFLX, ETOH, CMP, CBC, [id number], LIPID #### [facility] [address] [place] [address] [place] Hemoglobin [Mass/volume] in BloodOrdered By: Christian Da Silva on 08-04-2023 Hemoglobin (Bld) [Mass/Vol] 11.7 g/dL Low 11.8-15.4 [facility] Comment on above: Performed By: #### T SH3 wRFLX, ETOH, CMP, CBC, [id number], LIPID #### [facility] [address] [place] [address] [facility] Ketones Auto test strip (U) [Mass/Vol]Ordered By: Christian Da Silva on 08-04-2023 Ketones (U) [Mass/Vol] Negative Negative [facility] Leukocytes [#/volume] correc gretel for nucleated erythrocytes in Blood by Automated counOrdered By: Christian Da Silva on 08-04-2023 WBC corrected for nucl RBC Auto (Bld) [#/Vol] 8.5 10*3/uL 3.8-11.6 [facility] Leukocytes [#/volume] in Blo od by Automated countOrdered By: Christian Da Silva on 08-04-2023 WBC (Bld) [#/Vol] 8.5 10*3/uL Normal 3.8-11.6 [facility] Comment on above: Performed By: #### T SH3 wRFLX, ETOH, CMP, CBC, [id number], LIPID #### [facility] [address] [id number] [facility] Lipid Panelon 08-04-2023 LDL Cholesterol,Calculated 88 mg/dL Normal 0-100 [facility] Comment on above: Result Comment: LDL ATP III CLASSIFICATION LDL less than 100 mg/dL Optimal LDL 100-129 mg/dL Near or above optimal LDL 130-159 mg/dL Borderline high LDL 160-189 mg/dL High LDL greater than 189 mg/dL Very high Performed By: #### T SH3 wRFLX, ETOH, CMP, CBC, [id number], LIPID #### [facility] [address] Triglyceride w/Reflex 168 mg/dL High 0-149 The Pending [facility] Comment on above: Result Comment: TRIG ATP III CLASSIFICATION TRIG less than 150 mg/dL Normal TRIG 150-199 mg/dL Borderline high TRIG 200-500 mg/dL High TRIG greater than 500 mg/dL Very high Standard traceable to the Center for Disease Conrtrol and Prevention (CDC) test method. Performed By: #### T SH3 wRFLX, ETOH, CMP, CBC, [id number], LIPID #### [address] VLDL CHOLESTEROL 33 mg/dL Normal The [facility] Comment on above: Performed By: #### T SH3 wRFLX, ETOH, CMP, CBC, [id number], LIPID #### [address] Lymphocytes [#/volume] in Bl ood by Automated countOrdered By: Christian Da Silva on 08-04-2023 Lymphocytes (Bld) [#/Vol] 2.7 10*3/uL Normal 1.00-4.8 [facility] Comment on above: Performed By: #### T SH3 wRFLX, ETOH, CMP, CBC, [id number], LIPID #### [place] [address] [place] Lymphocytes/100 leukocytes i n Blood by Automated countOrdered By: Christian Da Silva on 08-04-2023 Lymphocytes/100 WBC (Bld) 31.8 % Normal . [facility] Comment on above: Performed By: #### T SH3 wRFLX, ETOH, CMP, CBC, [id number], LIPID #### [place] [address] [place] MCH [Entitic mass] by Automa gretel countOrdered By: Chritsian Da Silva on 08-04-2023 MCH (RBC) [Entitic mass] 26.2 pg Normal 24.7-34.3 [facility] Comment on above: Performed By: #### T SH3 wRFLX, ETOH, CMP, CBC, [id number], LIPID #### [facility] [address] MCHC Auto (RBC) [Mass/Vol]Or dered By: Christian Da Silva on 08-04-2023 MCHC (RBC) [Mass/Vol] 32.8 g/dL 32.0-35.0 [facility] MCV [Entitic volume] by Auto mated countOrdered By: Christian Da Silva on 08-04-2023 MCV (RBC) [Entitic vol] 80.0 fL Normal 80-100 [facility] Comment on above: Performed By: #### T SH3 wRFLX, ETOH, CMP, CBC, [id number], LIPID #### [facility] [address] Monocyte distribution width [Entitic volume] in Blood by AutomatedOrdered By: Christian Da Silva on 08-04-2023 Monocyte distribution width Auto (Bld) [Entitic vol] 17.93 % 0.00-20.00 [facility] Neutrophils [#/volume] in Bl ood by Automated countOrdered By: Christian Da Silva on 08-04-2023 Neutrophils (Bld) [#/Vol] 4.9 10*3/uL Normal 1.8-7.7 [facility] Comment on above: Performed By: #### T SH3 wRFLX, ETOH, CMP, CBC, [id number], LIPID #### [facility] [address] Nitrite Test strip Ql (U)Ord ered By: Christian Da Silva on 08-04-2023 Nitrite Ql (U) Negative Negative [facility] No Panel InformationOrdered By: Christian Da Silva on 08-04-2023 Estimated GFR (CKD-EPI) > 60.0 mL/Min [facility] Creatinine Clearance (Chem 164.68 [facility] Nucleated erythrocytes [Pres ence] in Blood by Automated countOrdered By: Christian Da Silva on 08-04-2023 Nucleated RBC Auto Ql (Bld) 0.1 /100{WBC} 0-0.5 [facility] Opiates [Presence] in Urine by Screen methodOrdered By: Christian Da Silva on 08-04-2023 Opiates Screen Ql (U) Negative Negative [facility] Phencyclidine Screen Ql (U)O rdered By: Christian Da Silva on 08-04-2023 Phencyclidine Ql (U) Negative Negative [facility] Platelet mean volume [Entiti c volume] in Blood by Automated countOrdered By: Christian Da Silva on 08-04-2023 Platelet mean volume (Bld) [Entitic vol] 9.7 fL Normal 6.3-10.7 [facility] Comment on above: Performed By: #### T SH3 wRFLX, ETOH, CMP, CBC, [id number], LIPID #### [facility] [address] Platelets [#/volume] in Bloo d by Automated countOrdered By: Christian Da Silva on 08-04-2023 Platelets (Bld) [#/Vol] 240 10*3/uL Normal 150-450 [facility] Comment on above: Performed By: #### T SH3 wRFLX, ETOH, CMP, CBC, [id number], LIPID #### [facility] [address] [place] [address] [place] Potassium [Moles/volume] in Serum or PlasmaOrdered By: Christian Da Silva on 08-04-2023 Potassium [Moles/Vol] 3.5 mmol/L Normal 3.5-5.1 [facility] Comment on above: Performed By: #### T SH3 wRFLX, ETOH, CMP, CBC, [id number], LIPID #### [facility] [address] Protein Auto test strip (U) [Mass/Vol]Ordered By: Christian Da Silva on 08-04-2023 Protein (U) [Mass/Vol] Negative Negative [facility] Protein [Mass/volume] in Ser um or PlasmaOrdered By: Christian Da Silva on 08-04-2023 Protein [Mass/Vol] 7.3 g/dL Normal 6.4-8.9 [facility] Comment on above: Performed By: #### T SH3 wRFLX, ETOH, CMP, CBC, [id number], LIPID #### [facility] [address] Serum globulin measurement b y calculation (mass/volume)Ordered By: Christian Da Silva on 08-04-2023 Globulin (S) [Mass/Vol] 2.7 g/dL Normal [facility] Comment on above: Performed By: #### T SH3 wRFLX, ETOH, CMP, CBC, [id number], LIPID #### [facility] [address] Serum or plasma albumin/glob ulin mass ratioOrdered By: Christian Da Silva on 08-04-2023 Albumin/Globulin [Mass ratio] 1.7 {ratio} Normal [facility] Comment on above: Performed By: #### T SH3 wRFLX, ETOH, CMP, CBC, [id number], LIPID #### [address] Serum or plasma anion gap de terminationOrdered By: Christian Da Silva on 08-04-2023 Anion gap [Moles/Vol] 12.7 mmol/L Normal 6.0-15.0 [facility] Comment on above: Performed By: #### T SH3 wRFLX, ETOH, CMP, CBC, [id number], LIPID #### [facility] [address] [place] [address] Serum or plasma high density lipoprotein (HDL) cholesterol measurementOrdered By: Christian Da Silva on 08-04-2023 Cholesterol in HDL [Mass/Vol] 48 mg/dL Normal 23-92 [facility] Comment on above: HDL CHOL ATP-III CLA SSIFICATION Cardiovascular RiskHDL > or equal to 60 mg/dL LOWHDL < 40 mg/dL HIGH Result Comment: HDL CHOL ATP-III CLASSIFICATION Cardiovascular Risk HDL > or equal to 60 mg/dL LOW HDL < 40 mg/dL HIGH Performed By: #### T SH3 wRFLX, ETOH, CMP, CBC, [id number], LIPID #### [facility] [address] Serum or plasma total choles terol/high density lipoprotein (HDL) cholesterol mass ratOrdered By: Christian Da Silva on 08-04-2023 Cholesterol.total/Tiffanie sterol in HDL [Mass ratio] 3.5 {ratio} Normal <5.0 [facility] Comment on above: Performed By: #### T SH3 wRFLX, ETOH, CMP, CBC, [id number], LIPID #### [facility] [address] [place] [address] [place] Sodium [Moles/volume] in Ser um or PlasmaOrdered By: Christian Da Silva on 08-04-2023 Sodium [Moles/Vol] 138 mmol/L Normal 136-145 [facility] Comment on above: Performed By: #### T SH3 wRFLX, ETOH, CMP, CBC, [id number], LIPID #### [facility] [address] Specific gravity Auto test s trip (U) [Rel density]Ordered By: Christian Da Silva on 08-04-2023 Specific gravity (U) [Rel density] 1.021 1.001-1.030 [facility] Thyroid Stim Hormone w/Rflxo n 08-04-2023 Thyroid Stim Hormone w/Rflx 1.62 u[iU]/mL Normal 0.45-5.33 The [facility]ending [facility] Comment on above: Performed By: #### T SH3 wRFLX, ETOH, CMP, CBC, [id number], LIPID #### [facility] [address] Thyrotropin [Units/volume] i n Serum or PlasmaOrdered By: Christian Da Silva on 08-04-2023 TSH Qn 1.62 m[IU]/L 0.45-5.33 [facility] Triglyceride [Mass/volume] i n Serum or PlasmaOrdered By: Christian Da Silva on 08-04-2023 Triglyceride [Mass/Vol] 168 mg/dL 0-149 [facility] Comment on above: TRIG ATP III CLASSIF ICATIONTRIG less than 150 mg/dL NormalTRIG 150-199 mg/dL Borderline highTRIG 200-500 mg/dL High TRIG greater than 500 mg/dL Very highStandard traceable to the Center for Disease Conrtrol and Prevention (CDC) test method. Urea nitrogen [Mass/volume] in Serum or PlasmaOrdered By: Christian Da Silva on 08-04-2023 Urea nitrogen [Mass/Vol] 7 mg/dL Normal 7-25 [facility] Comment on above: Performed By: #### T SH3 wRFLX, ETOH, CMP, CBC, [id number], LIPID #### [facility] [address] Urinalysison 08-04-2023 Appearance (U) Clear Normal Clear [facility] Comment on above: Order Comment: Name Collection Type:: Clean-Voided Midstream Performed By: #### U HCG, URDS, UA #### [facility] [address] Bilirubin,Urine Negative Normal Negative [facility] Comment on above: Order Comment: Name Collection Type:: Clean-Voided Midstream Performed By: #### U HCG, URDS, UA #### [address] Glucose Ql (U) Normal Normal Normal [facility] Comment on above: Order Comment: Name Collection Type:: Clean-Voided Midstream Performed By: #### U HCG, URDS, UA #### [place] [address] [place] Ketones Ql (U) Negative Normal Negative [facility] Comment on above: Order Comment: Name Collection Type:: Clean-Voided Midstream Performed By: #### U HCG, URDS, UA #### [address] Leukocyte esterase Test strip Ql (U) Negative Normal Negative The [facility]ending [facility] Comment on above: Order Comment: Name Collection Type:: Clean-Voided Midstream Performed By: #### U HCG, URDS, UA #### [facility] [address] [place] [address] [place] Nitrite,Urine Negative Normal Negative [facility] Comment on above: Order Comment: Name Collection Type:: Clean-Voided Midstream Performed By: #### U HCG, URDS, UA #### [place] [address] [place] Occult Blood,Urine Negative Normal Negative The On license of [facility] Comment on above: Order Comment: Name Collection Type:: Clean-Voided Midstream Performed By: #### U HCG, URDS, UA #### [facility] [address] Protein,Urine Negative Normal Negative [facility] Comment on above: Order Comment: Name Collection Type:: Clean-Voided Midstream Performed By: #### U HCG, URDS, UA #### [address] Specificy [place],Urine 1.021 Normal 1.001-1.030 The [facility]ending [facility] Comment on above: Order Comment: Name Collection Type:: Clean-Voided Midstream Performed By: #### U HCG, URDS, UA #### [address] Urobilinogen,Urine Normal Normal Normal The On license of [facility] Comment on above: Order Comment: Name Collection Type:: Clean-Voided Midstream Performed By: #### U HCG, URDS, UA #### [address] Urine clarity by refractomet ry automatedOrdered By: Christian Da Silva on 08-04-2023 Clarity Refractometry automated (U) Clear Clear [facility] Urine glucose measurement by automated test strip (mass/volume)Ordered By: Christian Da Silva on 08-04-2023 Glucose Auto test strip (U) [Mass/Vol] Normal mg/dL Normal [facility] Urine hemoglobin detection b y automated test stripOrdered By: Christian Da Silva on 08-04-2023 Hemoglobin Auto test strip Ql (U) Negative Negative [facility] Urine leukocyte esterase det ection by automated test stripOrdered By: Christian Da Silva on 08-04-2023 Leukocyte esterase Auto test strip Ql (U) Negative Negative [facility] Urine pH measurement by auto mated test stripOrdered By: Christian Da Silva on 08-04-2023 pH (U) 6.5 [pH] Normal 5.0-9.0 [facility] Comment on above: Order Comment: Name Collection Type:: Clean-Voided Midstream Performed By: #### U HCG, URDS, UA #### [facility] [address] [id number] [facility] Urobilinogen Auto test strip (U) [Mass/Vol]Ordered By: Christian Da Silva on 08-04-2023 Urobilinogen (U) [Mass/Vol] Normal mg/dL Normal [facility] Vitamin D 25 Hydroxy Totalon 08-04-2023 Vitamin D 25 Hydroxy Total 26.7 ng/mL Low 30-100 The Pending [facility] Comment on above: Result Comment: VILMA MIN D STATUS 25(OH)VITAMIN D RANGE (ng/mL) Deficient <20 Insufficient 20 to <30 Sufficient 30 to 100 Reference: Adrián Mason, Ayleen PARKER, et al. Evaluation,treatment, and prevention of vitamin D deficiency; an Endocrine Society clinical practice guideline. JCEM. 2010; 96(7):1911-30. PERFORMED BY: [place] [address] PATHOLOGIST BEEF SKINNER NEVA PEDERSON M.D. Performed By: #### T SH3 wRFLX, ETOH, CMP, CBC, [id number], LIPID #### [facility] [address] [id number] [facility] Vitamin D+Metabolites [Mass/ volume] in Serum or PlasmaOrdered By: Christian Da Silva on 08-04-2023 Vitamin D+Metabolites [Mass/Vol] 26.7 ng/mL 30-100 [facility] Comment on above: VITAMIN D STATUS 25( [place])VITAMIN D RANGE (ng/mL) Deficient <20 Insufficient 20 to <30Sufficient 30 to 100Reference: Adrián Mason, Ayleen PARKER, et al. Evaluation,treatment, and prevention of vitamin D deficiency; an Endocrine Society clinical practice guideline. JCEM. 2010; 96(7):1911-30. Quick Strepon 06-25-2023 S. pyogenes Org specific cx Ql (Throat) Positive [employer] Other Quick Strep [employer] Other LIPID PROFILEon 01-19-2020 Cholesterol [Mass/Vol] 127 mg/dL Normal 120-170 Th e [facility] Comment on above: Order Comment: No: D o not add to previous draw Result Comment: CHOL ESTEROL REFERENCE RANGE: 20 YEARS AND OLDER CARDIOVASCULAR RISK Less than 200 mg/dl Low Risk 200 to 239 mg/dl Borderline Risk 240 mg/dl and greater High Risk Performed By: #### 3 1569, 21178, 99404, 85324 #### [facility] [address] [place] [address], [place] Cholesterol in HDL [Mass/Vol] 35 mg/dL Normal 23-92 The [facility] Comment on above: Order Comment: No: D o not add to previous draw Result Comment: Slig ht variation in normal range could be due to gender and/or age. HDL CHOLESTEROL REFERENCE RANGE: 20 years and older Cardiovascular Risk > or =60 mg/dL Desirable 40 TO 59 mg/dL Low Risk <40 mg/dL High Risk Performed By: #### 3 1569, 58830, 91164, 58200 #### [facility] [address] [place] [address], [place] Cholesterol in LDL [Mass/Vol] 75 mg/dL Normal 0-130 The [facility] Comment on above: Order Comment: No: D o not add to previous draw Result Comment: LDL IS A CALCULATION LDL IS ONLY VALID IF THE TRIG IS LESS THAN 400. Performed By: #### 3 1569, 57267, 58787, 02926 #### [facility] [address] [place] [address], [place] Cholesterol.total/Tiffanie sterol in HDL [Mass ratio] 3.6 {ratio} Normal 0.0-4.5 The [facility] Comment on above: Order Comment: No: D o not add to previous draw Performed By: #### 3 1569, 62239, 56740, 52288 #### [facility] [address] [place] [address], [place] NON-HDL CHOLESTEROL 92 mg/dL Normal [facility] Comment on above: Order Comment: No: D o not add to previous draw Performed By: #### 3 1569, 57364, 12352, 21910 #### [facility] [address] [place] [address], [facility] Triglyceride [Mass/Vol] 83 mg/dL Normal 37-148 T he [facility] Comment on above: Order Comment: No: D o not add to previous draw Result Comment: TRIG LYCERIDE REFERENCE RANGE: 20 YEARS AND OLDER CARDIOVASCULAR RISK LESS THAN 150 mg/dl LOW RISK 150 TO 199 mg/dl BORDERLINE RISK 200 mg/dl AND GREATER HIGH RISK Performed By: #### 3 1569, 92282, 24001, 82485 #### [facility] [address] [place] [address], [facility] VLDL CHOL 17 mg/dL Normal 0-40 The [facility] Comment on above: Order Comment: No: D o not add to previous draw Performed By: #### 3 1569, 45656, 73277, 70061 #### [facility] [address] SERUM TESTon 01-18 TEST Negative Normal The [facility] Comment on above: Order Comment: No: D o not add to previous draw Performed By: #### 3 1569, 44910, 18487, 13429 #### [facility] [address] [place] [address], [facility] ALCOHOLon 01-18-2020 Ethanol [Mass/Vol] NONE DETECTED Normal The [facility] Comment on above: Result Comment: Divi de by 1000 to convert mg/dL to percent. Example: 100mg/dL = 0.1%. Performed By: #### 2 0621 #### [facility] [address] [place] [address], [facility] BASIC METABOLIC PANELon 01-02 Calcium [Mass/Vol] 9.4 mg/dL Normal 8.6-10.3 [facility] Comment on above: Performed By: #### 3 1569, 46100, 62003, 75684 #### [facility] [address] [place] [address], [place] Chloride [Moles/Vol] 105 mmol/L Normal 98-107 The [facility] Comment on above: Performed By: #### 3 1569, 33013, 90613, 22180 #### [facility] [address] [place] [address], [place] CO2 [Moles/Vol] 24 mmol/L Normal 21-31 [facility] Comment on above: Performed By: #### 3 1569, 63978, 44884, 00116 #### [facility] [address] [place] [address], [place] Creatinine [Mass/Vol] 0.62 mg/dL Normal 0.60-1.20 The [facility] Comment on above: Performed By: #### 3 1569, 61409, 69081, 55308 #### [facility] [address] [place] [address], [place] GFR/1.73 sq M predicted among blacks MDRD (S/P/Bld) [Vol rate/Area] Calculation not validated for patients under 18 years Abnormal >60 [facility] Comment on above: Performed By: #### 3 1569, 62628, 71049, 98277 #### [facility] [address] [place] [address], [place] GFR/1.73 sq M predicted among non-blacks MDRD (S/P/Bld) [Vol rate/Area] Calculation not validated for patients under 18 years Abnormal >60 The [facility] Comment on above: Performed By: #### 3 1569, 90376, 08065, 87253 #### [facility] [address] [place] [address], [place] Glucose [Mass/Vol] 90 mg/dL Normal 70-100 [facility] Comment on above: Performed By: #### 3 1569, 57048, 81034, 75416 #### [facility] [address] [place] [address], [facility] Potassium [Moles/Vol] 3.7 mmol/L Normal 3.5-5.1 [facility] Comment on above: Performed By: #### 3 1569, 01391, 35150, 40325 #### [facility] [address] [place] [id number], [facility] Sodium [Moles/Vol] 136 mmol/L Normal 136-145 [facility] Comment on above: Performed By: #### 3 1569, 81288, 68727, 03269 #### [facility] [address] [facility] Urea nitrogen [Mass/Vol] 9 mg/dL Normal 7-25 [facility] Comment on above: Performed By: #### 3 1569, 24064, 45955, 05908 #### [facility] [address] [place] [address], [facility] CBC W/DIFFon 01-18-2020 ABS BASOPHILS 0.1 10*3/uL Normal 0.0-0.3 The [facility] Comment on above: Performed By: #### 5 0103 #### [facility] [address] [place] [address], [facility] ABS IMM GRANS 0.0 10*3/uL Normal 0.0-0.2 The [facility] Comment on above: Performed By: #### 5 0103 #### [facility] [address] [place] [address], [facility] ABS NEUTROPHILS 3.1 10*3/uL Normal 1.8-10.1 The [facility] Comment on above: Performed By: #### 5 0103 #### [facility] [address] [place] [address], [facility] Basophils/100 WBC (Bld) 1.4 % Normal 0.0-2.0 T mariana [facility] Comment on above: Performed By: #### 5 0103 #### [facility] [address] [place] [address], [facility] Eosinophils (Bld) [#/Vol] 0.2 10*3/uL Normal 0.0-0.5 The [facility] Comment on above: Performed By: #### 5 0103 #### [facility] [address] [place] [address], [facility] Eosinophils/100 WBC (Bld) 3.0 % Normal 0.0-4.0 The [facility] Comment on above: Performed By: #### 3 #### [facility] [facility] [address] [facility] [place] [address], [facility] Erythrocyte distribution width (RBC) [Ratio] 15.1 % Normal 11.5-15.5 The [facility] Comment on above: Performed By: #### 3 #### [facility] [address] Hematocrit (Bld) [Volume fraction] 35.9 % Normal 34.0-48.0 The [facility] Comment on above: Performed By: #### 5 3 #### [facility] [address] [place] [address], [facility] Hemoglobin (Bld) [Mass/Vol] 11.7 g/dL Normal 11.5-16.0 The [facility] Comment on above: Performed By: #### 5 3 #### [facility] [address] [place] [address], [facility] IMMATURE GRANS 0.2 % Normal 0.0-1.0 The [facility] Comment on above: Performed By: #### 3 #### [facility] [address] [place] [address], [facility] Lymphocytes (Bld) [#/Vol] 2.2 10*3/uL Normal 1.1-6.1 The [facility] Comment on above: Performed By: #### 5 0103 #### [facility] [address] [place] [address], [facility] Lymphocytes/100 WBC (Bld) 32.9 % Normal 25.0-45.0 The [facility] Comment on above: Performed By: #### 5 3 #### [facility] [address] [place] [address], [facility] MCH (RBC) [Entitic mass] 26.4 pg Normal 24.0-35.0 The [facility] Comment on above: Performed By: #### 5 3 #### [facility] [address] [place] [address], [facility] MCHC (RBC) [Mass/Vol] 32.6 g/dL Normal 30.0-37.0 The [facility] Comment on above: Performed By: #### 5 3 #### [facility] [address] [place] [address], [facility] MCV (RBC) [Entitic vol] 80.9 fL Normal 75.0-95.0 T he [facility] Comment on above: Performed By: #### 5 3 #### [facility] [address] [place] [address], [facility] Monocytes (Bld) [#/Vol] 1.0 10*3/uL Normal 0.1-1.1 The [facility] Comment on above: Performed By: #### 5 3 #### [facility] [address] [place] [address], [facility] MONOS 14.8 % High 3.0-8.0 The [facility] Comment on above: Performed By: #### 5 3 #### [facility] [address] [place] [id number], [facility] Neutrophils/100 WBC (Bld) 47.7 % Normal 39.0-75.0 The [facility] Comment on above: Performed By: #### 5 3 #### [facility] [address] [place] [address], [facility] Nucleated RBC/100 WBC (Bld) [Ratio] 0 % Normal 0-0 The [facility] Comment on above: Performed By: #### 5 0103 #### [facility] [address] [place] [address], [place] PLAT CNT 285 10*3/uL Normal 150-450 The [facility] Comment on above: Performed By: #### 5 0103 #### [facility] [address] [place] [address], [facility] RBC (Bld) [#/Vol] 4.44 10*6/uL Normal 4.10-5.20 The [facility] Comment on above: Performed By: #### 5 0103 #### [facility] [address] [place] [address], [facility] WBC (Bld) [#/Vol] 6.57 10*3/uL Normal 4.50-13.50 The [facility] Comment on above: Performed By: #### 5 0103 #### [facility] [address] [place] [address], [facility] FREE T3on 01-18-2020 Free T3 [Mass/Vol] 4.6 pg/mL High 2.5-3.9 The [facility] Comment on above: Performed By: #### 3 1569, 10655, 07263, 34351 #### [facility] [address] [place] [id number], [facility] FREE T4on 01-18-2020 Free T4 [Mass/Vol] 0.57 ng/dL Low 0.71-1.85 The [facility] Comment on above: Performed By: #### 3 1569, 53635, 54909, 72203 #### [facility] [address] [place] [id number], [facility] LIVER BATTERYon 01-18-2020 Albumin [Mass/Vol] 4.5 g/dL Normal 3.5-5.7 The [facility] Comment on above: Performed By: #### 3 1569, 13420, 77918, 65806 #### [facility] [address] [place] [address], [place] ALKALINE PHOSPH 83 IU/L Normal 40-460 The [facility] Comment on above: Performed By: #### 3 1569, 81267, 88603, 04816 #### [facility] [address] [place] [address], [place] ALT [Catalytic activity/Vol] 17 U/L Normal 7-52 The [facility] Comment on above: Performed By: #### 3 1569, 30730, 40872, 44190 #### [facility] [address] [place] [address], [place] AST [Catalytic activity/Vol] 19 U/L Normal 13-39 The [facility] Comment on above: Performed By: #### 3 1569, 71492, 52059, 91378 #### [facility] [address] [place] [address], [place] Bilirubin [Mass/Vol] 0.3 mg/dL Normal 0.3-1.0 The [facility] Comment on above: Performed By: #### 3 1569, 33319, 48379, 64781 #### [facility] [address] [place] [address], [place] Bilirubin.direct [Mass/Vol] 0.1 mg/dL Normal 0.0-0.2 The [facility] Comment on above: Performed By: #### 3 1569, 55417, 92931, 45458 #### [facility] [address] [place] [address], [place] Protein [Mass/Vol] 7.2 g/dL Normal 6.0-8.3 The [facility] Comment on above: Performed By: #### 3 1569, 76931, 55940, 07799 #### [facility] [address] [place] [address], [facility] TOX PANEL URINEon 01-18-2020 50 THC Negative Normal NEGATIVE The [facility] Comment on above: Performed By: #### 3 1079 #### [facility] [address] [place] [address], [facility] BARBITURATES Negative Normal NEGATIVE The [facility] Comment on above: Performed By: #### 3 1079 #### [facility] [address] [place] [address], [facility] Benzodiazepines Ql (U) Negative Normal NEGATIVE e [facility] Comment on above: Performed By: #### 3 1079 #### [facility] [address] [place] [address], [facility] Cocaine Ql (U) Negative Normal NEGATIVE The [facility] Comment on above: Performed By: #### 3 1079 #### [facility] [address] [place] [address], [facility] Methadone Ql (U) Negative Normal NEGATIVE The [facility] Comment on above: Performed By: #### 3 1079 #### [facility] [address] [place] [address], [facility] MONO AMPHET Negative Normal NEGATIVE The [facility] Comment on above: Performed By: #### 3 1079 #### [facility] [address] [place] [address], [facility] Opiates Ql (U) Negative Normal NEGATIVE The [facility] Comment on above: Performed By: #### 3 1079 #### [facility] [address] [place] [address], [facility] Phencyclidine Ql (U) Negative Normal NEGATIVE The [facility] Comment on above: Performed By: #### 3 1079 #### [facility] [address] PROPOXYPHENE Negative Normal NEGATIVE The [facility] Comment on above: Performed By: #### 3 1079 #### [facility] [address] [facility]. [address] TRICYCLICS Negative Normal NEGATIVE The [facility] Comment on above: Performed By: #### 3 1079 #### [facility] [address] [facility] TSH3on 01-18-2020 TSH 3RD GENERATION 1.35 uIU/mL Normal 0.34-5.60 The [facility] Comment on above: Order Comment: No: D o not add to previous draw Performed By: #### 3 1569, 09275, 66031, 70592 #### [facility] [address] URINALYSIS REFLEXon 01-18-20 20 Appearance (U) SL CLOUDY Abnormal CLEAR The [facility] Comment on above: Order Comment: Crite rolando for reflexing a culture was not met. Please call the lab at [phone] within 24 hours of collection time if culture is needed Performed By: #### 3 0965 #### [facility] [address] Bilirubin [Mass/Vol] Negative Normal NEGATIVE The [facility] Comment on above: Order Comment: Crite rolando for reflexing a culture was not met. Please call the lab at [phone] within 24 hours of collection time if culture is needed Performed By: #### 3 0965 #### [facility] [address] BLOOD Negative Normal NEGATIVE The [facility] Comment on above: Order Comment: Crite rolando for reflexing a culture was not met. Please call the lab at [phone] within 24 hours of collection time if culture is needed Performed By: #### 3 0965 #### [facility] [address] [place] [address], [facility] Color (U) YELLOW Normal YELLOW The [facility] Comment on above: Order Comment: Crite rolando for reflexing a culture was not met. Please call the lab at [phone] within 24 hours of collection time if culture is needed Performed By: #### 3 0965 #### [facility] [address] [place] [address], [place] Glucose [Mass/Vol] Negative Normal NEGATIVE The [facility] Comment on above: Order Comment: Crite rolando for reflexing a culture was not met. Please call the lab at [phone] within 24 hours of collection time if culture is needed Performed By: #### 3 0965 #### [facility] [address] [place] [address], [facility] KETONE Negative Normal NEGATIVE The [facility] Comment on above: Order Comment: Crite rolando for reflexing a culture was not met. Please call the lab at [phone] within 24 hours of collection time if culture is needed Performed By: #### 3 0965 #### [facility] [address] [place] [address], [place] LEUK AI Negative Normal NEGATIVE The [facility] Comment on above: Order Comment: Crite rolando for reflexing a culture was not met. Please call the lab at [phone] within 24 hours of collection time if culture is needed Performed By: #### 3 0965 #### [facility] [address] [place] [address], [facility] MICRO NOT DONE Normal The [facility] Comment on above: Order Comment: Crite rolando for reflexing a culture was not met. Please call the lab at [phone] within 24 hours of collection time if culture is needed Result Comment: Micr oscopics not performed on urines with negative chemical reactions unless requested in original order Performed By: #### 3 0965 #### [facility] [address] [place] [address], [place] Nitrite Ql (U) Negative Normal NEGATIVE The [facility] Comment on above: Order Comment: Crite rolando for reflexing a culture was not met. Please call the lab at [phone] within 24 hours of collection time if culture is needed Performed By: #### 3 0965 #### [address] pH (Bld) 5.0 Normal 5.0-8.0 [facility] Comment on above: Order Comment: Crite rolando for reflexing a culture was not met. Please call the lab at [phone] within 24 hours of collection time if culture is needed Performed By: #### 3 0965 #### [address] Protein (U) [Mass/Vol] Negative Normal NEGATIVE Th e [facility] Comment on above: Order Comment: Crite rolando for reflexing a culture was not met. Please call the lab at [phone] within 24 hours of collection time if culture is needed Performed By: #### 3 0965 #### [address] SPEC GRAV 1.028 High 1.015-1.020 The [facility] Comment on above: Order Comment: Crite rolando for reflexing a culture was not met. Please call the lab at [phone] within 24 hours of collection time if culture is needed Performed By: #### 3 0965 #### [address] URINE TESTon 01-17 HCG ( test) Ql (U) Negative Normal [facility] Comment on above: Order Comment: Yes: Add to Previous draw if able Performed By: #### 3 1608 #### [address] CBC W/DIFFon 03-10-2019 ABS BASOPHILS 0.1 10*3/uL Normal 0.0-0.3 The [facility] Comment on above: Performed By: #### 5 0103 #### [address] [place] [address], [facility] ABS IMM GRANS 0.0 10*3/uL Normal 0.0-0.2 The [facility] Comment on above: Performed By: #### 5 0103 #### [facility] [address] [place] [address], [facility] ABS NEUTROPHILS 2.1 10*3/uL Normal 1.8-10.1 The [facility] Comment on above: Performed By: #### 5 0103 #### [facility] [address] [place] [address], [facility] Basophils/100 WBC (Bld) 1.1 % Normal 0.0-2.0 T [facility] Comment on above: Performed By: #### 5 0103 #### [facility] [address] [facility] [place] [address], [facility] Eosinophils (Bld) [#/Vol] 0.1 10*3/uL Normal 0.0-0.5 The [facility] Comment on above: Performed By: #### 5 0103 #### [facility] [address] [place] [address], [facility] Eosinophils/100 WBC (Bld) 1.1 % Normal 0.0-4.0 The [facility] Comment on above: Performed By: #### 5 0103 #### [facility] [address] [place] [place] [address], [facility] Erythrocyte distribution width (RBC) [Ratio] 16.2 % High 11.5-15.5 [facility] Comment on above: Performed By: #### 5 0103 #### [facility] [address] [place] [place] [address], [facility] Hematocrit (Bld) [Volume fraction] 37.2 % Normal 34.0-48.0 The [facility] Comment on above: Performed By: #### 5 3 #### [facility] [address] Hemoglobin (Bld) [Mass/Vol] 11.8 g/dL Normal 11.5-16.0 The [facility] Comment on above: Performed By: #### 5 0103 #### [facility] [address] [place] [address], [facility] IMMATURE GRANS 0.2 % Normal 0.0-1.0 [facility] Comment on above: Performed By: #### 5 0103 #### [facility] [address] [facility] [place] [address], [facility] Lymphocytes (Bld) [#/Vol] 1.9 10*3/uL Normal 1.1-6.1 The [facility] Comment on above: Performed By: #### 5 0103 #### [facility] [address] [facility] [place] [address], [facility] Lymphocytes/100 WBC (Bld) 42.3 % Normal 25.0-45.0 The [facility] Comment on above: Performed By: #### 5 0103 #### [facility] [address] [facility] [place] [address], [facility] MCH (RBC) [Entitic mass] 26.8 pg Normal 24.0-35.0 The [facility] Comment on above: Performed By: #### 5 0103 #### [facility] [address] [place] [place] [address], [facility] MCHC (RBC) [Mass/Vol] 31.7 g/dL Normal 30.0-37.0 The [facility] Comment on above: Performed By: #### 5 0103 #### [facility] [address] [place] [address], [facility] MCV (RBC) [Entitic vol] 84.4 fL Normal 75.0-95.0 T mariana [facility] Comment on above: Performed By: #### 5 3 #### [facility] [address] [facility] [place] [address], [facility] Monocytes (Bld) [#/Vol] 0.4 10*3/uL Normal 0.1-1.1 The [facility] Comment on above: Performed By: #### 5 0103 #### [facility] [address] [place] [id number], [facility] MONOS 9.5 % High 3.0-8.0 The [facility] Comment on above: Performed By: #### 5 0103 #### [facility] [address] [place] [id number], [facility] Neutrophils/100 WBC (Bld) 45.8 % Normal 39.0-75.0 The [facility] Comment on above: Performed By: #### 5 0103 #### [facility] [address] [place] [address], [facility] Nucleated RBC/100 WBC (Bld) [Ratio] 0 % Normal 0-0 The [facility] Comment on above: Performed By: #### 5 0103 #### [facility] [address] [place] [address], [facility] PLAT CNT 272 10*3/uL Normal 150-450 The [facility] Comment on above: Performed By: #### 5 3 #### [facility] [address] [place] [address], [facility] RBC (Bld) [#/Vol] 4.41 10*6/uL Normal 4.10-5.20 The [facility] Comment on above: Performed By: #### 5 3 #### [facility] [address] [place] [address], [facility] WBC (Bld) [#/Vol] 4.52 10*3/uL Normal 4.50-13.50 The [facility] Comment on above: Performed By: #### 5 3 #### [facility] [address] [place] [address], [facility] COMP METABOLIC PANELon 03-10 Albumin [Mass/Vol] 4.6 g/dL Normal 3.5-5.7 The [facility] Comment on above: Performed By: #### 3 1569, 44080, 07311, 22627 #### [facility] [address] [place] [address], [place] ALKALINE PHOSPH 81 IU/L Normal 40-460 The [facility] Comment on above: Performed By: #### 3 1569, 18360, 87369, 89630 #### [facility] [address] [place] [address], [place] ALT [Catalytic activity/Vol] 20 U/L Normal 7-52 The [facility] Comment on above: Performed By: #### 3 1569, 66656, 07997, 28453 #### [facility] [address] [place] [address], [place] AST [Catalytic activity/Vol] 27 U/L Normal 13-39 The [facility] Comment on above: Performed By: #### 3 1569, 96523, 76132, 56149 #### [facility] [address] [place] [address], [place] Bilirubin [Mass/Vol] 0.5 mg/dL Normal 0.3-1.0 The [facility] Comment on above: Performed By: #### 3 1569, 11298, 67462, 92616 #### [facility] [address] [place] [address], [place] Calcium [Mass/Vol] 9.9 mg/dL Normal 8.6-10.3 The [facility] Comment on above: Performed By: #### 3 1569, 88308, 32836, 90602 #### [facility] [address] [place] [address], [place] Chloride [Moles/Vol] 105 mmol/L Normal 98-107 The [facility] Comment on above: Performed By: #### 3 1569, 82067, 60888, 74887 #### [facility] [address] [place] [address], [place] CO2 [Moles/Vol] 25 mmol/L Normal 21-31 [facility] Comment on above: Performed By: #### 3 1569, 50328, 64580, 43591 #### [facility] [address] [place] [address], [place] Creatinine [Mass/Vol] 0.68 mg/dL Normal 0.60-1.20 The [facility] Comment on above: Performed By: #### 3 1569, 71691, 02220, 28298 #### [facility] [address] [place] [address], [place] GFR/1.73 sq M predicted among blacks MDRD (S/P/Bld) [Vol rate/Area] Calculation not validated for patients under 18 years Abnormal >60 [facility] Comment on above: Performed By: #### 3 1569, 47770, 54430, 60135 #### [facility] [address] [place] [address], [place] GFR/1.73 sq M predicted among non-blacks MDRD (S/P/Bld) [Vol rate/Area] Calculation not validated for patients under 18 years Abnormal >60 The [facility] Comment on above: Performed By: #### 3 1569, 28399, 83018, 96327 #### [facility] [address] [place] [address], [place] Glucose [Mass/Vol] 83 mg/dL Normal 70-100 [facility] Comment on above: Performed By: #### 3 1569, 32316, 40246, 12976 #### [facility] [address] [place] [address], [place] Potassium [Moles/Vol] 4.3 mmol/L Normal 3.5-5.1 The [facility] Comment on above: Performed By: #### 3 1569, 99956, 02161, 39106 #### [facility] [address] Protein [Mass/Vol] 7.4 g/dL Normal 6.0-8.3 The [facility] Comment on above: Performed By: #### 3 1569, 59194, 08862, 47278 #### [facility] [address] Sodium [Moles/Vol] 138 mmol/L Normal 136-145 The [facility] Comment on above: Performed By: #### 3 1569, 68620, 96021, 18456 #### [facility] [address] Urea nitrogen [Mass/Vol] 10 mg/dL Normal 7-25 The [facility] Comment on above: Performed By: #### 3 1569, 95471, 43550, 60663 #### [facility] [address] [facility]. [address] TSH3 WITH REFLEXon 9 Free T4 [Mass/Vol] 0.86 ng/dL Normal 0.71-1.85 The [facility] Comment on above: Performed By: #### 3 1569, 69470, 24812, 00693 #### [facility] [address] [facility] [place] [address], [facility] TSH 3RD GENERATION 1.14 uIU/mL Normal 0.34-5.60 The [facility] Comment on above: Performed By: #### 3 1569, 89148, 14819, 75500 #### [facility] [address] VITAMIN B12on 03-10-2019 Cobalamin (Vitamin B12) [Mass/Vol] 477 pg/mL Normal 180-914 The [facility] Comment on above: Result Comment: REFE RENCE RANGES: 180-914 pg/mL Normal 145-179 pg/mL Indeterminate <145 pg/mL Deficient Performed By: #### 3 1569, 51597, 83374, 33421 #### [facility] [address] [place] [address], [facility] VITAMIN D 25-HYDROXYon 03-10 VITAMIN D 25-OH 69.8 ng/mL Normal 30.0-80.0 The [facility] Comment on above: Result Comment: >80. 0 Toxicity possible Performed By: #### 3 1569, 93189, 66612, 71573 #### [facility] [address] [place] [address], [facility] Vitamin B12on 07-03-2017 Cobalamins (Vitamin B12) 777 pg/mL Normal 211-946 [facility] Comment on above: Result Comment: Perf ormed at [address] [address] Performed By: #### C DP, CP, TSHX ####[address] [address] #### B12, VD25 ####[address] [address] Vitamin D 25 OHon 07-03-2017 Vitamin D 25 OH 31.2 ng/mL Normal 30.0-100.0 [facility] Comment on above: Result Comment: Refe rence Range:Vitamin D status Range Deficiency <20 ng/mL Mild Deficiency 20-30 ng/mL Sufficiency 30-100 ng/mL Toxicity >100 ng/mLPerformed at [address] [address] Performed By: #### C DP, CP, TSHX ####[address] [address] #### B12, VD25 ####[address] [address] CBC with Diffon 07-02-2017 Abs. Basophil 0.10 k/uL Normal 0.0-0.2 [facility] Comment on above: Result Comment: Perf ormed at [facility] [address] [place] [address] Performed By: #### C DP, CP, TSHX ####[facility] [place] [address] #### B12, VD25 ####[address] [address] Abs.Neutrophil (Seg) 5.70 k/uL Normal 1.3-9.1 [facility] Comment on above: Performed By: #### C DP, CP, TSHX ####[address] [address] #### B12, VD25 ####[address] [address] Basophils/100 WBC Auto (Bld) 1 % Normal [facility] Comment on above: Performed By: #### C DP, CP, TSHX ####[address] [address] #### B12, VD25 ####[address] [address] Eosinophils 0.10 10*3/uL Normal 0.0-0.4 [facility] Comment on above: Performed By: #### C DP, CP, TSHX ####[address] [address] #### B12, VD25 ####[address] [address] Eosinophils/100 leukocytes 1 % Normal [facility] Comment on above: Performed By: #### C DP, CP, TSHX ####[facility] [place] [address] #### B12, VD25 ####[address] [address] Erythrocyte distribution width Auto Ratio (RBC) 14.7 % Normal 11.5-14.9 [facility] Comment on above: Performed By: #### C DP, CP, TSHX ####[facility] [place] [address] #### B12, VD25 ####[address] [address] Erythrocytes (RBC) 4.48 10*6/uL Normal 4.0-5.2 [facility] Comment on above: Performed By: #### C DP, CP, TSHX ####[address] [address] #### B12, VD25 ####[address] [address] Hematocrit (HCT) 36.9 % Normal 36-46 [facility] Comment on above: Performed By: #### C DP, CP, TSHX ####[address] [address] #### B12, VD25 ####[address] [address] Hemoglobin mass conc (Bld) 12.1 g/dL Normal 12.0-16.0 [facility] Comment on above: Performed By: #### C DP, CP, TSHX ####[address] [address] #### B12, VD25 ####[address] [address] Lymphocytes 2.20 10*3/uL Normal 1.5-6.5 [facility] Comment on above: Performed By: #### C DP, CP, TSHX ####[facility] [place] [address] #### B12, VD25 ####[address] [address] Lymphocytes/100 leukocytes 24 % Normal [facility] Comment on above: Performed By: #### C DP, CP, TSHX ####[address] [address] #### B12, VD25 ####[address] [address] MCH 27.1 pg Normal 25-35 [facility] Comment on above: Performed By: #### C DP, CP, TSHX ####[facility] [place] [address] #### B12, VD25 ####[address] [address] MCHC mass conc (RBC) 32.9 g/dL Normal 31-37 [facility] Comment on above: Performed By: #### C DP, CP, TSHX ####[facility] [place] [address] #### B12, VD25 ####[address] [address] MCV 82.2 fL Normal 78-102 [facility] Comment on above: Performed By: #### C DP, CP, TSHX ####[address] [address] #### B12, VD25 ####[address] [address] Monocytes 0.90 10*3/uL Normal 0.1-1.3 [facility] Comment on above: Performed By: #### C DP, CP, TSHX ####[address] [address] #### B12, VD25 ####[address] [address] Monocytes/100 leukocytes 10 % Normal [facility] Comment on above: Performed By: #### C DP, CP, TSHX ####[address] [address] #### B12, VD25 ####[address] [address] Neutrophil (Seg) 64 % Normal [facility] Comment on above: Performed By: #### C DP, CP, TSHX ####[address] [address] #### B12, VD25 ####[address] [address] Platelet mean volume (PMV) 9.8 fL Normal 6.0-12.0 [facility] Comment on above: Performed By: #### C DP, CP, TSHX ####[address] [address] #### B12, VD25 ####[address] [address] Platelets 297 10*3/uL Normal 150-450 [facility] Comment on above: Performed By: #### C DP, CP, TSHX ####[address] [address] #### B12, VD25 ####[address] [address] WBC (Leukocytes) 9.0 10*3/uL Normal 4.5-13.5 [facility] Comment on above: Performed By: #### C DP, CP, TSHX ####[facility] [place] [address] #### B12, VD25 ####[address] [address] Auto Diff Performed NOT REPORTED Normal [facility] Comment on above: Performed By: #### C DP, CP, TSHX ####[address] [address] #### B12, VD25 ####[address] [address] Erythrocyte morphology NOT REPORTED Normal [facility] Comment on above: Performed By: #### C DP, CP, TSHX ####[address] [address] #### B12, VD25 ####[address] [address] Platelets NOT REPORTED Normal [facility] Comment on above: Performed By: #### C DP, CP, TSHX ####[address] [address] #### B12, VD25 ####[address] [place] [address] WBC Morphology NOT REPORTED Normal [facility] Comment on above: Performed By: #### C DP, CP, TSHX ####[address] [place] [address] #### B12, VD25 ####[address] [place] [address] Comp Metabolic Profon 2016 (cont.) Normal [facility] Comment on above: Result Comment: Aver age GFR for <20 years old not available.Chronic Kidney Disease: <60 mL/min/1.73sq mKidney failure: <15 mL/min/1.73sq meGFR calculated using average adult body mass. Additional eGFR calculator available at:http://[email or web address]/multiple_crcl_2011.htmPerformed at [facility] [address] [place] [address] Performed By: #### C DP, CP, TSHX ####[address] [address] #### B12, VD25 ####[address] [address] Alanine aminotransferase (ALT) 13 U/L Normal 5-33 [facility] Comment on above: Performed By: #### C DP, CP, TSHX ####[address] [place] [address] #### B12, VD25 ####[address] [place] [address] Albumin 4.3 g/dL Normal 3.8-5.4 [facility] Comment on above: Performed By: #### C DP, CP, TSHX ####[address] [address] #### B12, VD25 ####[facility] [id number] [place] [address] Alkaline Phos 149 U/L Normal 50-162 [facility] Comment on above: Performed By: #### C DP, CP, TSHX ####[address] [address] #### B12, VD25 ####[address] [address] Anion gap 14 mmol/L Normal 9-17 [facility] Comment on above: Performed By: #### C DP, CP, TSHX ####[facility] [place] [address] #### B12, VD25 ####[address] [address] Aspartate aminotransferase (AST) 20 U/L Normal <32 [facility] Comment on above: Performed By: #### C DP, CP, TSHX ####[address] [address] #### B12, VD25 ####[address] [address] Bilirubin Ql (U) 0.23 mg/dL Low 0.3-1.2 [facility] Comment on above: Performed By: #### C DP, CP, TSHX ####[address] [address] #### B12, VD25 ####[address] [address] Calcium 9.6 mg/dL Normal 8.4-10.2 [facility] Comment on above: Performed By: #### C DP, CP, TSHX ####[address] [address] #### B12, VD25 ####[address] [address] Chloride 102 mmol/L Normal 98-107 [facility] Comment on above: Performed By: #### C DP, CP, TSHX ####[address] [place] [address] #### B12, VD25 ####[address] [address] CO2 25 mmol/L Normal 20-31 [facility] Comment on above: Performed By: #### C DP, CP, TSHX ####[facility] [place] [address] #### B12, VD25 ####[address] [address] Creatinine 0.47 mg/dL Low 0.57-0.87 [facility] Comment on above: Performed By: #### C DP, CP, TSHX ####[address] [address] #### B12, VD25 ####[address] [address] eGFR (non-black) Pediatric GFR requires additional information. Refer to NKDEP website for Normal >60 [facility] Comment on above: Result Comment: calc ulator. Performed By: #### C DP, CP, TSHX ####[address] [address] #### B12, VD25 ####[address] [address] Glucose mass conc 90 mg/dL Normal 60-100 [facility] Comment on above: Performed By: #### C DP, CP, TSHX ####[address] [address] #### B12, VD25 ####[address] [address] Potassium molar conc 3.8 mmol/L Normal 3.6-4.9 [facility] Comment on above: Performed By: #### C DP, CP, TSHX ####[facility] [facility] [place] [address] #### B12, VD25 ####[address] [place] [address] Protein 7.2 g/dL Normal 6.0-8.0 [facility] Comment on above: Performed By: #### C DP, CP, TSHX ####[facility] [place] [address] [place] [address] #### B12, VD25 ####[address] [address] Sodium 141 mmol/L Normal 135-144 [facility] Comment on above: Performed By: #### C DP, CP, TSHX ####[facility] [place] [address] [place] [address] #### B12, VD25 ####[address] [address] Urea nitrogen 11 mg/dL Normal 5-18 [facility] Comment on above: Performed By: #### C DP, CP, TSHX ####[facility] [place] [address] [place] [address] #### B12, VD25 ####[address] [place] [address] Albumin/Globulin Ratio NOT REPORTED Normal 1.0-2.5 [facility] Comment on above: Performed By: #### C DP, CP, TSHX ####[facility] [place] [address] [place] [address] #### B12, VD25 ####[facility] [place] [address] BUN/CRE Ratio NOT REPORTED Normal 9-20 [facility] Comment on above: Performed By: #### C DP, CP, TSHX ####[facility] [facility] [place] [address] #### B12, VD25 ####[address] [place] [address] eGFR (non-black) NOT REPORTED Normal >60 [facility] Comment on above: Performed By: #### C DP, CP, TSHX ####[facility] [facility] [place] [address] #### B12, VD25 ####[address] [place] [address] Staging: NOT REPORTED Normal [facility] Comment on above: Performed By: #### C DP, CP, TSHX ####[facility] [place] [address] [place] [address] #### B12, VD25 ####[address] [place] [address] TSH w/reflex to FT4on 2016 Thyroid stimulating hormone (TSH) 1.44 m[IU]/L Normal 0.30-5.00 [facility] Comment on above: Result Comment: Perf ormed at [facility] [address] [facility] [place] [address] Performed By: #### C DP, CP, TSHX ####[facility] [facility] [place] [address] #### B12, VD25 ####[address] [place] [address] Vital Signs Date Time Vital Sign Value Performing Clinician Facility 09-24-2024 19:22-0500 Body temperature 98 [degF] Rosa Jensen [facility] 09-24-2024 19:22-0500 Body weight 117 [facility] 09-24-2024 19:22-0500 Diastolic blood pressure 77 mm[Hg] [facility] 09-24-2024 19:22-0500 Heart rate 84 /[facility] 19:22-0500 Respiratory rate 16 /min [facility] 09-24-2024 19:22-0500 SaO2% (BldA) [Mass fraction] 98 % [facility] 09-24-2024 19:22-0500 Systolic blood pressure 119 mm[Hg] [facility] 01-27-2024 15:37-0400 Diastolic blood pressure 62 mm[Hg] Mayela Tracey MD Work Phone: [facility] 01-27-2024 15:37-0400 Systolic blood pressure 92 mm[Hg] Mayela Tracey MD Work Phone: [facility] 01-27-2024 15:08-0400 Body height 165.1 cm Mayela Tracey MD Work Phone: [facility] 01-27-2024 15:08-0400 Body mass index (BMI) [Ratio] 38.44 kg/m2 Mayela Tracey MD Work Phone: [facility] 01-27-2024 15:08-0400 Body weight 104.78 kg Mayela Tracey MD Work Phone: [facility] 01-27-2024 15:08-0400 Heart rate 88 /min Mayela Tracey MD Work Phone: [facility] 10-23-2023 12:32-0500 Body height 165.[address] 10-23-2023 12:32-0500 Body mass index (BMI) [Ratio] 37.44 kg/m2 [address] 10-23-2023 12:32-0500 Body weight 102.[address] 10-23-2023 12:32-0500 Diastolic blood pressure 70 mm[Hg] [address] 10-23-2023 12:32-0500 Systolic blood pressure 114 mm[Hg] [address] 10-20-2023 22:30-0500 Diastolic blood pressure 60 mm[Hg] PHYSICIAN NO [facility] 10-20-2023 22:30-0500 Heart rate 70 /min PHYSICIAN NO [facility] 10-20-2023 22:30-0500 SaO2% (BldA) [Mass fraction] 100 % PHYSICIAN NO [facility] 10-20-2023 22:30-0500 Systolic blood pressure 106 mm[Hg] PHYSICIAN NO [facility] 10-20-2023 20:21-0500 Body height 165.1 cm PHYSICIAN NO [facility] 10-20-2023 20:21-0500 Body temperature 98.5 [degF] PHYSICIAN NO [facility] 10-20-2023 20:21-0500 Body weight 104.15 kg PHYSICIAN NO [facility] 10-20-2023 20:21-0500 Respiratory rate 18 /min PHYSICIAN NO [facility] 09-30-2023 12:49-0500 Diastolic blood pressure 76 mm[Hg] Mayela Tracey MD Work Phone: [facility] 09-30-2023 12:49-0500 Systolic blood pressure 110 mm[Hg] Mayela Tracey MD Work Phone: [facility] 09-30-2023 12:47-0500 Heart rate 68 /min Mayela Tracey MD Work Phone: [facility] 09-30-2023 12:45-0500 Body height 165.1 cm Mayela Tracey MD Work Phone: [facility] 09-30-2023 12:45-0500 Body mass index (BMI) [Ratio] 37.44 kg/m2 Mayela Tracey MD Work Phone: [facility] 09-30-2023 12:45-0500 Body weight 102.06 kg Mayela Tracey MD Work Phone: [facility] 08-07-2023 07:30-0400 Body temperature 98.1 [degF] PHYSICIAN NO [facility] 08-07-2023 07:30-0400 Diastolic blood pressure 71 mm[Hg] PHYSICIAN NO [facility] 08-07-2023 07:30-0400 Heart rate 65 /min PHYSICIAN NO [facility] 08-07-2023 07:30-0400 Respiratory rate 16 /min PHYSICIAN NO [facility] 08-07-2023 07:30-0400 SaO2% (BldA) [Mass fraction] 97 % PHYSICIAN NO [facility] 08-07-2023 07:30-0400 Systolic blood pressure 113 mm[Hg] PHYSICIAN NO [facility] 08-06-2023 14:32-0400 Body height 165.1 cm PHYSICIAN NO [facility] 08-05-2023 09:00-0400 Body weight 106.23 kg PHYSICIAN NO [facility] 08-05-2023 00:38-0400 Diastolic blood pressure 65 mm[Hg] PHYSICIAN NO [facility] 08-05-2023 00:38-0400 Heart rate 88 /min PHYSICIAN NO [facility] 08-05-2023 00:38-0400 Respiratory rate 18 /min PHYSICIAN NO [facility] 08-05-2023 00:38-0400 SaO2% (BldA) [Mass fraction] 97 % PHYSICIAN NO [facility] 08-05-2023 00:38-0400 Systolic blood pressure 117 mm[Hg] PHYSICIAN NO [facility] 08-04-2023 21:23-0400 Body height 165.1 cm PHYSICIAN NO [facility] 08-04-2023 21:23-0400 Body temperature 97.8 [degF] PHYSICIAN NO [facility] 08-04-2023 21:23-0400 Body weight 107.6 kg PHYSICIAN NO [facility] 06-25-2023 15:40-0400 Body height 165.1 cm Mic Concepcion Other [facility] Other 06-25-2023 15:40-0400 Body mass index (BMI) [Ratio] 36.61 kg/m2 Mic Concepcion Other [facility] Other 06-25-2023 15:40-0400 Body temperature 97.4 [degF] Mic Concepcion Other [facility] Other 06-25-2023 15:40-0400 Body weight 99.79 kg Mic Concepcion Other [facility] Other 06-25-2023 15:40-0400 Diastolic blood pressure 74 mm[Hg] Mic Concepcion Other [facility] Other 06-25-2023 15:40-0400 Respiratory rate 18 /min Mic Concepcion Other [employer] Other 06-25-2023 15:40-0400 SaO2% (BldA) [Mass fraction] 98 % Mic Concepcion Other [facility] Other 06-25-2023 15:40-0400 Systolic blood pressure 107 mm[Hg] Mic Concepcion Other [employer] Other Encounters Encounter Date Encounter Type Care Provider Facility Start: 09-24-2024 End: 09-24-2024 [facility] Work Phone: Start: 09-24-2024 End: 09-24-2024 [facility] Work Phone: Start: 07-14-2024 End: 07-14-2024 Emergency department patient visit SHARI SHELDON [facility] Start: 04-07-2024 End: 04-07-2024 Emergency department patient visit NOT IN SYSTEM PCP [facility] Start: 03-21-2024 End: 03-21-2024 Emergency department patient visit MARINA SMITH [facility] Start: 03-18-2024 End: 03-18-2024 ambulatory ROSALIA JOSE [facility] Start: 03-11-2024 End: 05-22-2024 ambulatory [place] Start: 02-25-2024 Emergency department patient visit OLLIE MORGAN [facility] Start: 02-25-2024 End: 02-25-2024 [facility]: [facility] Start: 02-02-2024 End: 02-02-2024 Emergency department patient visit NOT IN SYSTEM PCP [facility] Start: 01-29-2024 End: 01-29-2024 Emergency department patient visit NOT IN SYSTEM PCP [facility] Start: 01-27-2024 End: 01-27-2024 ambulatory [facility] Start: 01-27-2024 End: 01-27-2024 Office outpatient visit 25 minutes Mayela Tracey MD Work Phone: [facility] Comment on above: Postural dizziness w ith presyncope; Hypokalemia; Palpitations; Obesity (BMI 35.0-39.9 without comorbidity); Vapes nicotine containing substance; Orthostatic hypotension; Encounter to discuss test results; Medication course changed Start: 01-16-2024 End: 02-03-2024 ambulatory [facility] Start: 01-09-2024 End: 01-09-2024 Emergency department patient visit NOT IN SYSTEM PCP [facility] Start: 01-01-2024 End: 01-01-2024 ambulatory Services [facility] Start: 12-18-2023 End: 01-03-2024 ambulatory [facility] Start: 12-10-2023 End: 12-10-2023 Emergency department patient visit NOT IN SYSTEM PCP [facility] Start: 11-19-2023 End: 11-19-2023 Emergency department patient visit REUBEN MORALES [facility] Start: 11-19-2023 End: 11-19-2023 Emergency department patient visit NOT IN SYSTEM PCP [facility] Start: 10-23-2023 End: 10-23-2023 ambulatory [facility] Start: 10-23-2023 End: 10-23-2023 ambulatory [facility] Start: 10-23-2023 End: 10-23-2023 Subsequent hospital visit by physician Mary Grace Mcguire Echo/Vasc Room 2 [facility] Comment on above: Postural dizziness w ith presyncope; Mood disorder (CMS/HCC); Bipolar affective disorder, current episode hypomanic (CMS/HCC); Anxiety; Posttraumatic stress disorder; Hypokalemia; Palpitations; Obesity (BMI 35.0-39.9 without comorbidity); Shortness of breath; Abnormal EKG Start: 10-20-2023 End: 10-20-2023 Emergency department patient visit PHYSICIAN [facility] Work Phone: Start: 09-30-2023 End: 09-30-2023 ambulatory [facility] Start: 09-30-2023 End: 09-30-2023 Office outpatient new 45 minutes Mayela Tracey MD Work Phone: [facility] Comment on above: Postural dizziness w ith presyncope; Mood disorder (CMS/HCC); Bipolar affective disorder, current episode hypomanic (CMS/HCC); Anxiety; Posttraumatic stress disorder; Hypokalemia; Palpitations; Obesity (BMI 35.0-39.9 without comorbidity); Shortness of breath; Abnormal EKG Start: 08-29-2023 End: 08-29-2023 Patient encounter procedure PHYSICIAN [facility] Work Phone: Start: 08-29-2023 End: 08-29-2023 ambulatory PHYSICIAN [facility] Work Phone: Start: 08-05-2023 End: 08-07-2023 Evaluation and management of inpatient PHYSICIAN CARLEY [facility] Work Phone: Start: 06-25-2023 End: 06-25-2023 ambulatory Mic Concepcion Other [facility] [employer] Other Start: 06-25-2023 Office outpatient ne w 20 minutes Mic Concepcion [facility] Start: 07-02-2017 End: 07-03-2017 Ambulatory FRANCA MONTESINOS [facility] Procedures Date Procedure Procedure Detail Performing Clinician Start: 01-27-2024 Comprehensive metabo lic 2000 panel - Serum or Plasma MAYELA TRACEY Start: 01-27-2024 HCG, URINE, QUALITATIVE MAYELA TRACEY Start: 01-27-2024 Basic metabolic 2000 panel - Serum or Plasma MAYELA TRACEY Start: 10-23-2023 TRANSTHORACIC ECHO ( TTE) COMPLETE MAYELA TRACEY Start: 10-23-2023 HOLTER OR EVENT CARD IAC MONITOR MAYELA TRACEY Start: 10-23-2023 Echo tthrc r-t 2d w/wom-mode compl spec&colr d Mayela Tracey MD Work Phone: Start: 09-30-2023 Basic metabolic 2000 panel - Serum or Plasma MAYELA TRACEY Start: 09-30-2023 ECG 12-LEAD MAYELA LAURA Start: 09-30-2023 Ecg routine ecg w/le ast 12 lds w/i&r Mayela Tracey MD Work Phone: Start: 07-02-2017 CBC WITH AUTO DIFFERENTIAL FRANCA MONTESINOS Start: 07-02-2017 COMPREHENSIVE METABO LIC PANEL FRANCA MONTESINOS Start: 07-02-2017 Cyanocobalamin vitamin b-12 FRANCA MONTESINOS Start: 07-02-2017 TSH WITH REFLEX FRANCA MONTESINOS Start: 07-02-2017 VITAMIN D 25 HYDROXY MA ANGELITA MONTESINOS Plan of Treatment Date Care Activity Detail Author Start: 2053 Zoster Vaccines (1 of 2) Zoster Vaccines (1 of 2) [facility] Start: 03-09-2024 End: 03-09-2024 Patient encounter procedure 03/09/2024 3:00 PM EDT Office Visit [facility] [address] [place] [address] [address] [place] [address] Tamara Smith, BEVEL OPERATOR-TELEX OPERATOR [address] [facility] [address] [place] [address] [facility] Start: 01-27-2024 End: 01-26-2025 Basic metabolic 2000 panel - Serum or Plasma Basic Metabolic Panel Lab Routine Hypokalemia Orthostatic hypotension Expected: 01/27/2024 (Approximate), Expires: 01/26/2025 [facility] Service Area Work Phone: Comment on above: Expected: 01/27/2024 (Approximate), Expi res: 01/26/2025 Start: 01-27-2024 End: 01-26-2025 Choriogonadotropin ( test) [Presence] in Urine hCG, Urine, Qualitative Lab Routine Postural dizziness with presyncope Medication course changed Expected: 01/27/2024 (Approximate), Expires: 01/26/2025 [facility] Work Phone: Comment on above: Expected: 01/27/2024 (Approximate), Expi res: 01/26/2025 Start: 01-27-2024 End: 01-26-2025 Comprehensive metabolic 2000 panel - Serum or Plasma Comprehensive Metabolic Panel Lab Routine Postural dizziness with presyncope Expected: 01/27/2024 (Approximate), Expires: 01/26/2025 [facility] Work Phone: Comment on above: Expected: 01/27/2024 (Approximate), Expi res: 01/26/2025 Start: 12-02-2023 End: 12-02-2023 Patient encounter procedure 12/02/2023 3:00 PM EST Office Visit [facility] [address] [facility] [address] [place] [phone] Mayela Tracey MD [address] [place] [address] [address] [place] [address] [facility] Start: 10-22-2023 End: 10-22-2023 [facility] Start: 10-20-2023 [facility] Start: 10-14-2023 End: 09-30-2024 Basic metabolic 2000 panel - Serum or Plasma Basic Metabolic Panel Lab Routine Hypokalemia Expected: 10/14/2023 (Approximate), Expires: 09/30/2024 [facility] Work Phone: Comment on above: Expected: 10/14/2023 (Approximate), Expi res: 09/30/2024 Start: 09-30-2023 End: 09-30-2024 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 Cardiac Services Routine Postural dizziness with presyncope Mood disorder (CMS/HCC) Bipolar affective disorder, current episode hypomanic (CMS/HCC) Anxiety Posttraumatic stress disorder Hypokalemia Palpitations Obesity (BMI 35.0-39.9 without comorbidity) Shortness of breath Abnormal EKG Expected: 09/30/2023, Expires: 09/30/2024 [facility] Service Area Work Phone: Comment on above: Expected: 09/30/2023, Expires: Start: 09-30-2023 End: 09-30-2025 Tilt table study Tilt Table Cardiac Services Routine Postural dizziness with presyncope Palpitations Shortness of breath Abnormal EKG Expected: 09/30/2023 (Approximate), Expires: 09/30/2025 [facility] Work Phone: Comment on above: Expected: 09/30/2023 (Approximate), Expi res: 09/30/2025 Start: 09-30-2023 End: 09-30-2025 US Heart Transthoracic Transthoracic Echo (TTE) Complete Echocardiography Routine Postural dizziness with presyncope Mood disorder (CMS/HCC) Bipolar affective disorder, current episode hypomanic (CMS/HCC) Anxiety Posttraumatic stress disorder Hypokalemia Palpitations Obesity (BMI 35.0-39.9 without comorbidity) Shortness of breath Abnormal EKG Expected: 09/30/2023 (Approximate), Expires: 09/30/2025 [facility] Work Phone: Comment on above: Expected: 09/30/2023 (Approximate), Expi res: 09/30/2025 Start: 08-07-2023 [facility] Start: 08-05-2023 Referral to [facility] Start: 08-05-2023 Hospital admission [facility] Start: 07-05-2023 Influenza vaccination Influenza Vaccine (#1) [facility] Start: 2021 Hepatitis C screening Hepatitis C Screening [facility] Start: 2014 HPV Vaccines (1 - 2-dose series) HPV Vaccines (1 - 2-dose series) [facility] Start: 2010 DTaP/Tdap/Td Vaccines (1 - Tdap) DTaP/Tdap/Td Vaccines (1 - Tdap) [facility] Start: 2006 Well Child Visit (WCV) - Annual Well Child Visit (WCV) - Annual [facility] Start: 2004 MMR Vaccines (1 of 1 - Standard series) MMR Vaccines (1 of 1 - Standard series) [facility] Start: 2004 Varicella vaccination Varicella Vaccines (1 of 2 - 2-dose childhood series) [facility] Start: 08-20-2004 Application of dental fluoride varnish Fluoride Varnish [facility] Start: 06-20-2004 COVID-19 Vaccine (#1) COVID-19 Vaccine (#1) [facility] Start: 2003 Hearing Screening (#1) Hearing Screening (#1) [facility] Start: 2003 Hepatitis B Vaccines (1 of 3 - 3-dose series) Hepatitis B Vaccines (1 of 3 - 3-dose series) [facility] Start: 2003 HIV screening HIV Screening [facility] Start: 2003 Lipid panel Lipid Panel [facility] Patient Education [facility] Work Phone: Patient referral [facility] Work Phone: Payers Date Payer Category Payer [employer] others) [id number] 03-11-2024 Private Health Insurance [id number] 08-04-2023 [employer] ( and others) [id number] 08-04-2023 Self-pay 06-04-2023 Unknown [employer] [facility] [id number] 06/04/2023-Present [address] [place] [address] [id number] 06-04-2023 Unknown [id number] 11-04-2022 [employer] ( and others) [employer] [id number] 11/04/2022-Present [address] [place] [address] [id number] 11-04-2022 [employer] ( and others) [id number] 06-04-2017 Unknown [id number] 2003 Unknown [id number] 2.16.840.1.892583.3.579.2. 1244 2003 Unknown [id number] 2.16.840.1.761273.3.579.2. 1244 2003 Unknown [id number] 2.16.840.1.193291.3.579.2. 1244 2003 Unknown [id number] 2.16.840.1.225497.3.579.2. 1286 2003 Unknown [id number] 2.16.840.1.740236.3.579.2. 1286 2003 Unknown [id number] 2.16.840.1.877531.3.579.2. 1286 2003 Unknown [id number] 2.16.840.1.316516.3.579.2. 1286 2003 Unknown [id number] 2.16.840.1.937352.3.579.2. 1286 2003 Unknown [id number] 2.16.840.1.225635.3.579.2. 1286 2003 Unknown [id number] 2.16.840.1.346093.3.579.2. 1286 2003 Unknown [id number] 2.16.840.1.924777.3.579.2. 1286 2003 Unknown [id number] 2.16.840.1.623948.3.579.2. 1286 2003 Unknown [id number] 2.16.840.1.241231.3.579.2. 1246 [facility] ( and others) [facility] [id number] Unknown [id number] 2.16.840.1.387221.3.579.2. 531 Unknown [id number] 2.16.840.1.502922.3.579.2. 531 Unknown [id number] 2.16.840.1.763645.3.579.2. 531 Unknown [id number] 2.16.840.1.068239.3.579.2. 531 Unknown [id number] 2.16.840.1.211457.3.579.2. 531 Unknown [id number] 2.16.840.1.974818.3.579.2. 661 Social History Date Type Detail Facility Start: 09-30-2023 End: 01-27-2024 Sex Assigned At [facility] arch[facility] Other Start: 08-04-2023 Tobacco smoking status NHIS Current some day smoker [facility] Start: 2003 Sex Assigned At Female [facility] Start: 08-05-2023 End: 01-27-2024 Tobacco smoking status NHIS Never smoked tobacco (finding) [facility] Start: 09-30-2023 Tobacco use and exposure Smokeless tobacco non-user [facility] Work Phone: Start: 09-30-2023 End: 01-27-2024 Alcohol intake Lifetime non-drinker (finding) [facility] Work Phone: Start: 2003 Sex Assigned At Not on file [facility] Work Phone: Start: 09-20-2023 End: 01-27-2024 Exposure to SARS-CoV-2 (event) Not sure [facility] Start: 09-30-2023 End: 01-27-2024 History of Social function [facility] Work Phone: Start: 01-27-2024 Tobacco use and exposure User of smokeless tobacco [facility] Work Phone: Tobacco smoking status NHIS Unknown if ever smoked [facility] Work Phone: Start: 09-24-2024 Sex Female (finding) [facility] Goals Date Patient Goal Desired Activity /State Functional Status Date Assessment Result Facility 08-07-2023 Functional status Patient at Baseline [facility] Work Phone: Mental Status Date Assessment Result Facility 08-07-2023 Cognitive function Cognitive Sta tus Patient at Baseline [facility] Work Phone: Clinical Notes 06-25-2023 to 07-15-2024 Mayela Tracey MD - 01/27/2024 3:00 PM EDTPatient InstructionsMayela Tracey MD - 09/30/2023 12:45 PM ESTPatient Instructions Note Date & Type Note Facility 07-15-2024 Note ED follow up call: [facility] Discharge date: 07/14/24 Chief Complaint: Back Pain DX: Acute exacerbation of chronic low Patient Contact: First call attempt 07/15/24 Patient states she has been having back pain that seem to be getting worse.Patient states she lifts heavy boxes at work also.Patient states this is chronic but it has been getting worse. Patient states she has started the pain meds and they are helping minimally. She states she will call to schedule a F/U with ortho. Chart review: Patient has an appointment on <> for follow up.Last PCP dimitris 03/18/24 Care Gaps Due: Chlamydia Screening Vaccines New Medications: Lidocaine Patch Naproxen 500 mg [facility] 03-25-2024 Note ED follow up call: [facility] Discharge date: 03/21/24 Chief Complaint: Headache and N/V Pt states she has had a headache for 1 week and new on set of N/V.Pt state that she was recently diagnosed with scoliosis and has had chronic fatigue for months and is unsure if it is related. Patient Contact: First call attempt 03/25/24 Second call attempt 03/26/24 Chart review: Patient has an appointment on with PCP for follow up. Care Gaps Due: Chlamydia screening [facility] 03-18-2024 Note Attestation signed by Dwayne Clemons MD at 03/19/2024 7:02 PM By using the attestations below, the signing clinician agrees that I have read and verify that the documentation has been personally reviewed by me and ensure that the documentation accurately reflects the encounter. GC: I personally saw this patient on the day of the encounter, performed the beach portion(s) of the service and participated in the management and confirm the resident's documentation. Please note there may be an additional personal documentation from me. Family Medicine - Outpatient visit SUBJECTIVE: Chief Complaint Establish Care (New patient, est. Care questions about back and other issues) History of Present Illness Sivakumar Prabhakar is a 18 y.o. female who has a past medical history of ADHD (attention deficit hyperactivity disorder), Bipolar 1 disorder (CMS/HCC), Depression, Known health problems: none, and PTSD (post-traumatic stress disorder). , presents to the clinic today to reestablish care Mentions if it okay for her to decrease/stop taking Fludrocortisone which she has been taking for 2 months. Mentions her help desk support specialist who prescribed the medication are in [place] and she has moved to [place] now and will not be following with cardiology. Mention her tilt table test (done in past 3 months) when she was off Fludrocortisone, came back negative.No results available to review. Mentions her POTS is not a big concern at this time even though mentions her symptoms are worse. Mentions symptoms consist of palpitations, dizziness/presyncope. Mentions at this time her big concern is her scoliosis. Mentions she has been worsening of back pain and was recently told that could be contributed by scoliosis. She has an upcoming ortho appointment for that. Mentions back pain comes and go but mentions that adds to anxiety. Mentions not having time for exercise. Mentioned she is not currently taking any medications as in past medications did not work for her. Mentions she cant walk too long and has to sit down often as feels extremely weak in legs and arms. Mention sometimes feel hard to even get up as feels like strength is going away. Mentions having numbness in arms. Did physical therapy with back but stopped working after she moved. Mentions if she can has a mobility device like walker. KIARA 7 scored 16, PHQ 9 scored 20. Goes to [place] for psychiatry, planning to go to [facility] in future, has not an appointment yet Allergies: Mentioned Montelukast helps and one time when she was out of it she had bad allergy attack and wants to continue medicine Past Medical History Past Medical History: Diagnosis Date ADHD (attention deficit hyperactivity disorder) Bipolar 1 disorder (CMS/HCC) Depression Known health problems: none PTSD (post-traumatic stress disorder) Past Surgical History She has a past surgical history that includes Excision benign skin lesion scalp / neck / hands / feet / genitalia. Family History Family History Problem Relation Name Age of Onset Depression Mother Autism Father Depression Father Anxiety disorder Father Autism Brother Social History Social History Socioeconomic History Marital status: Single Spouse name: None Number of children: None Years of education: None Highest education level: None Occupational History None Tobacco Use Smoking status: Never Smokeless tobacco: Never Vaping Use Vaping Use: Every day Substances: Nicotine Devices: Disposable Substance and Sexual Activity Alcohol use: Yes Comment: monthly Drug use: Not Currently Sexual activity: Yes Partners: Male Other Topics Concern None Social History Narrative None Social Determinants of Health Financial Resource Strain: Not on file Food Insecurity: Not on file Transportation Needs: Not on file Physical Activity: Not on file Stress: Not on file Social Connections: Not on file Intimate Partner Violence: Unknown (02/25/2024) [place] Safety & Environment Fear of Current or Ex-Partner: Not on file Emotionally Abused: Not on file Physically Abused: Not on file Sexually Abused: Not on file Physically or Sexually Abused: Not on file Housing Stability: Not on file Medications Medication Documentation Review Audit Reviewed by Shital Palma MA (Joiner Apprentice) on 03/18/24 at 1011 Medication Order Taking? Sig Documenting Provider Last Dose Status acetaminophen (Tylenol 8 Hour) 650 mg ER tablet [id number] Yes Take 650 mg by mouth every 8 (eight) hours if needed for mild pain (1-3 pain score). Do not crush, chew, or split. Historical Provider, Taking Active atomoxetine (Strattera) 40 mg capsule [id number] Yes Take 40 mg by mouth in the morning. Swallow capsule whole; do not open. If opened accidentall (more content not included)... [facility] 01-27-2024 History of Present illness Narrative Patient was initially seen in September 2023 with symptoms of palpitations tunnel vision and presyncope. History of bipolar depression. Patient underwent Holter monitoring echocardiogram magnesium and potassium supplementation was advised, and tilt table testing was recommended. Subjective : Stop taking potassium and magnesium because she found it difficult to swallow the pills. Continues to report symptoms that are unchanged from prior visits, these include palpitations dizziness tunnel vision presyncope Although blood pressure initially 116/72, standing blood pressure 92/62. On warm days symptoms are more pronounced Denies being She is currently on her period. History so Far : 1. Palpitations with dizziness tunnel vision presyncope 2. Tilt table test December 2023-physiologic response to tilt maneuver and nitroglycerin administration 3. Echocardiogram December 2023-LVEF 60 to 65%, normal chamber dimensions, grossly normal valves. No pericardial effusion trace mitral and trace tricuspid regurgitation. RVSP 20 mmHg. 4. [facility] October 2023- patient triggered events sinus rhythm and sinus tachycardia 1 auto triggered event sinus tachycardia at 155 bpm lasted 5 minutes. After that heart rate low 100s. 5. Bipolar disorder Objective Failed to redirect to the Timeline version of the Mtime SmartLink. Wt Readings from Last 3 Encounters: 01/27/24 105 kg (231 lb) 10/23/23 102 kg (225 lb) (99 %, Z= 2.27)* 09/30/23 102 kg (225 lb) (99 %, Z= 2.27)* * Growth percentiles are based on [facility] (Girls, 2-20 Years) data. Visit Vitals BP 92/62 (BP Location: Right arm, Patient Position: Standing) Pulse 88 Ht 1.651 m (5' 5 ) Wt 105 kg (231 lb) BMI 38.44 kg/m Smoking Status Never BSA 2.19 m Physical Exam: GENERAL APPEARANCE: in no acute distress. CHEST: Symmetric and non-tender. INTEGUMENT: Skin warm and dry HEENT: No gross abnormalities identified.No pallor or scleral icterus. NECK: Supple, no JVD, no bruit. NEURO/PSHCY: Alert and oriented x3 LUNGS: Clear to auscultation bilaterally; normal respiratory effort. HEART: Rate and rhythm regular with no evident murmur; no gallop appreciated. ABDOMEN: Soft, non tender. MUSCULOSKELETAL: No gross deformities. EXTREMITIES: Warm There is no edema noted. Meds: Current Outpatient Medications Medication Instructions atomoxetine HCl (STRATTERA ORAL) oral lurasidone (LATUDA) 20 mg, oral, Daily, Take with food. melatonin 3 mg, oral, Nightly PRN montelukast sodium (SINGULAIR ORAL) oral venlafaxine (EFFEXOR) 75 mg, oral, Daily, Take with food. Allergies Allergen Reactions Amoxicillin Diarrhea LABS: November 2023-hemoglobin 12.7 hematocrit 38.6, platelets 2 76,000, sodium 137 potassium 3.8 creatinine 0.86, GFR greater than 90, liver enzymes normal, D-dimer less than 150, Patient Active Problem List Diagnosis Date Noted Vapes nicotine containing substance 01/27/2024 Orthostatic hypotension 01/27/2024 Encounter to discuss test results 01/27/2024 Medication course changed 01/27/2024 Anxiety 09/30/2023 Posttraumatic stress disorder 09/30/2023 Acute stress disorder 09/30/2023 Bipolar affective disorder, current episode hypomanic (CMS/HCC) 09/30/2023 Mood disorder (CMS/HCC) 09/30/2023 Postural dizziness with presyncope 09/30/2023 Hypokalemia 09/30/2023 Palpitations 09/30/2023 Obesity (BMI 35.0-39.9 without comorbidity) 09/30/2023 Shortness of breath 09/30/2023 Abnormal EKG 09/30/2023 Assessment: 1. Postural dizziness with presyncope 2. Hypokalemia 3. Palpitations 4. Obesity (BMI 35.0-39.9 without comorbidity) 5. Vapes nicotine containing substance 6. Orthostatic hypotension 7. Encounter to discuss test results 8. Medication course changed 9. Echocardiogram 10/23/2023-LVEF 60 to 65%, normal echo, left atrial diameter 3.3 cm, LV end-systolic diameter 3.5 cm, normal RV systolic function, PA pressure could not be estimated because there was no tricuspid regurgitation 10. 30-day [facility] 10/26- patient triggered events corresponded to sinus rhythm and sinus tachycardia 1 auto triggered event at 8:40 PM on 11/16/2023, consistent with sinus tachycardia at 155 bpm lasted about 5 minutes. 11. Tilt table test December 2023-physiologic response to tilt maneuver and nitroglycerin administration 12. BMI close to 39 13. Orthostatic hypotension sitting blood pressure 116/72 standing blood pressure 92/62 on 01/27/2024 Will treat for orthostatic hypotension with Florinef 0.1 mg p.o. twice daily Basic metabolic profile a week after starting Florinef, because potassium levels can drop Increase intake of potassium rich foods Follow up : 6 weeks with Tamara Smith NP. Based on clinical course, additional therapy and follow-up can be arranged. Orthostatics to be checked at next visit also. Provider Attestation - Scribe documentation Mary Portillo LPN All medical record entries made by the Scribe were at my direction and personally dictated by me. I have reviewed the chart and agree that the record accurately reflects my personal performance of the history, physical exam, discussion and plan. documented in this encounter [facility] Work Phone: 01-27-2024 Instructions Mary Nix LPN - 01/27/2024 3:00 PM EDT Please bring all medicines, vitamins, and herbal supplements with you when you come to the office. Prescriptions will not be filled unless you are compliant with your follow up appointments or have a follow up appointment scheduled as per instruction of your physician. Refills should be requested at the time of your visit. BMI was above normal measurement. Current weight: 105 kg (231 lb) Weight change since last visit (-) denotes wt loss 6 lbs Weight loss needed to achieve BMI 25: 81.1 Lbs Weight loss needed to achieve BMI 30: 51.1 Lbs Provided instructions on dietary changes Provided instructions on exercise. documented in this encounter [facility] Work Phone: 09-30-2023 History of Present illness Narrative Referred by family health services for right bouts of presyncope palpitations. History Of Present Illness: Sivakumar Prabhakar is a 17 y.o. female presenting with symptoms of palpitations tunnel vision presyncope dating back to a year and a half. She says that the episodes are occurring more frequently even at a younger age she recalls having bouts of tunnel vision, and was recommended to see the eye doctor. She works at [employer], at the [employer], says that she is very careful to hydrate herself throughout the day. She recently had a 24-hour Holter monitor that showed sinus rhythm with heart rates ranging from 56-1 58, with 1 PVC, average heart rate was 103 bpm. She is on control . She has bipolar depression No recent weight gain or weight loss Sleep is always disturbed, tends to sleep late at night and late into the morning She understands that the Holter did not reveal an etiology for her symptoms, she requests further monitoring, because the frequency and duration are somewhat erratic, and she did not have any palpitations or lightheadedness during the Holter. No history of valvular heart disease or rheumatic heart disease BMI is excessive I have reviewed recent available laboratory data from August 2023, sodium was 138 potassium 3.5, total cholesterol 170 HDL 48 LDL 88 triglycerides 168 TSH 1.62 vitamin D level 26.7 hemoglobin and hematocrit 11.7 and 35.7 Today's EKG does raise the possibility of ventricular preexcitation, although it is not conclusive. NC interval 164 ms. Heart rate 69 nonspecific intraventricular conduction block QRS duration 120 ms QTc 400 ms No family history of sudden cardiac . ROS : Occasional tunnel vision, palpitations with and without activity without without dizziness, presyncope, exertional shortness of breath such as going up a flight of stairs, no nausea vomiting diarrhea no bleeding diathesis has insomnia does not have lower extremity edema no fever chills or cough, 12 point review of systems is otherwise negative or noncontributory Past Medical History: She has no past medical history on file. Past Surgical History: She has a past surgical history that includes Bunionectomy (Bilateral). Social History: She reports that she has never smoked. She has never used smokeless tobacco. She reports that she does not drink alcohol and does not use drugs. Family History: Family History Problem Relation Name Age of Onset Anxiety disorder Mother Depression Mother Kidney failure Mother ADD / ADHD Father Depression Father Anxiety disorder Father Autism Father ADD / ADHD Brother Autism Brother Allergies: Amoxicillin Outpatient Medications: Current Outpatient Medications Medication Instructions lurasidone (LATUDA) 20 mg, oral, Daily, Take with food. melatonin 3 mg, oral, Nightly PRN venlafaxine (EFFEXOR) 75 mg, oral, Daily, Take with food. Last Recorded Vitals: Vitals: 09/30/23 1245 09/30/23 1247 09/30/23 1248 09/30/23 1249 BP: 120/82 110/80 140/90 110/76 BP Location: Right leg Right leg Right arm Left arm Patient Position: Lying Sitting Standing Sitting Pulse: 68 68 Weight: 102 kg (225 lb) Height: 1.651 m (5' 5 ) Physical Exam: Orthostatics were checked, laying blood pressure 120/82 sitting blood pressure 110/80 standing blood pressure 140/90. GENERAL APPEARANCE: Well developed, well nourished, in no acute distress. CHEST: Symmetric and non-tender. INTEGUMENT: Skin warm and dry, without gross excoriationis or lesions. HEENT: No gross abnormalities, no jugular venous distention no carotid bruit or scleral icterus NECK: Supple, no JVD, no bruit. Thyroid not palpable. Carotid upstrokes normal. NEURO/PSHCY: Alert and oriented x3; appropriate behavior and responses and responses, with normal balance and coordination LUNGS: Clear to auscultation bilaterally; normal respiratory effort. HEART: Rate and rhythm regular with no evident murmur; no gallop appreciated. There are no rubs, clicks or heaves. ABDOMEN: Soft, nontender, no masses or bruits. MUSCULOSKELETAL: No obvious deformity identified EXTREMITIES: Warm There is no edema noted. PERIPHERAL VASCULAR: Pulses present and equally palpable; 2+ throughout. Laboratory data reviewed Assessment/Plan Diagnoses and all orders for this visit: Postural dizziness with presyncope - ECG 12 Lead - Follow Up In Cardiology; Future - Holter Or Event Residential Team Leader; Future - Transthoracic Echo (TTE) Complete; Future - magnesium oxide (Mag-Ox) 400 mg tablet; Take 1 tablet (400 mg) by mouth 2 times a day. - potassium chloride CR (Klor-Con M20) 20 mEq ER tablet; Take 2 tablets (40 mEq) by mouth once daily. Do not crush or chew. - Tilt Table; Future Mood disorder (CMS/HCC) - ECG 12 Lead - Follow Up In Cardiology; Future - Holter Or Event Residential Team Leader; Future - Transthoracic Echo (TTE) Complete; Future - magnesium oxide (Mag-Ox) 400 mg tablet; Take 1 tablet (400 mg) by mouth 2 times a day. - potassium chloride CR (Klor-Con M20) 20 mEq ER tablet; Take 2 tablets (40 mEq) by mouth once daily. Do not crush or chew. Bipolar affective disorder, current episode hypomanic (CMS/HCC) - ECG 12 Lead - Follow Up In Cardiology; Future - Holter Or Event Residential Team Leader; Future - Transthoracic Echo (TTE) Complete; Future - magnesium oxide (Mag-Ox) 400 mg tablet; Take 1 tablet (400 mg) by mouth 2 times a day. - potassium chloride CR (Klor-Con M20) 20 mEq ER tablet; Take 2 tablets (40 mEq) by mouth once daily. Do not crush or chew. Anxiety - ECG 12 Lead - Follow Up In Cardiology; Future - Holter Or Event Residential Team Leader; Future - Transthoracic Echo (TTE) Complete; Future - magnesium oxide (Mag-Ox) 400 mg tablet; Take 1 tablet (400 mg) by mouth 2 times a day. - potassium chloride CR (Klor-Con M20) 20 mEq ER tablet; Take 2 tablets (40 mEq) by mouth once daily. Do not crush or chew. Posttraumatic stress disorder - ECG 12 Lead - Follow Up In Cardiology; Future - Holter Or Event Residential Team Leader; Future - Transthoracic Echo (TTE) Complete; Future - magnesium oxide (Mag-Ox) 400 mg tablet; Take 1 tablet (400 mg) by mouth 2 times a day. - potassium chloride CR (Klor-Con M20) 20 mEq ER tablet; Take 2 tablets (40 mEq) by mouth once daily. Do not crush or chew. Hypokalemia - ECG 12 Lead - Follow Up In Cardiology; Future - Holter Or Event Residential Team Leader; Future - Transthoracic Echo (TTE) Complete; Future - magnesium oxide (Mag-Ox) 400 mg tablet; Take 1 tablet (400 mg) by mouth 2 times a day. - potassium chloride CR (Klor-Con M20) 20 mEq ER tablet; Take 2 tablets (40 mEq) by mouth once daily. Do not crush or chew. - Basic Metabolic Panel; Future Palpitations - ECG 12 Lead - Follow Up In Cardiology; Future - Holter Or Event Residential Team Leader; Future - Transthoracic Echo (TTE) Complete; Future - magnesium oxide (Mag-Ox) 400 mg tablet; Take 1 tablet (400 mg) by mouth 2 times a day. - potassium chloride CR (Klor-Con M20) 20 mEq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 Name: Sivakumar Prabhakar Admission date: 01/18/2020 D/c date: 01/22/2020 Principal Dx: Major depressive disorder, suicide ideation HPI 14-year-old or white female with past history of anxiety, depression, and PTSD presenting to [facility] for [facility] Admission due to suicidal ideation. She first presented to the family medicine clinic. The family development extension specialist called the underwriter mortgage loan to explain that they were concerned about the patient's safety. Resident was advised that the patient should report to the ER for psychiatric evaluation as she was endorsing suicide note written by 1 of her many personalities. Patient was medically cleared through the ER and transferred to [facility] for admission. Patient on presentation endorsed that she has 12 personalities that she feels that (more content not included)... Chief Complaint and Reason for Visit Chief Complaint Mhp Chief Complaint Mhp Reason for Visit Major depression Suicidal ideation Chief Complaint Mhp Dizziness Reason for Visit Major depression Suicidal ideation Chief Complaint Mhp Dizziness dizzy and nausea Chief Complaint Admit Date has been dizzy, needs a note September 242023 6:55pm Reason for Referral Specialty Diagnoses / Procedures Referred By Contac t Referred To Contact Cardiology Diagnoses Postural dizziness with presyncope Palpitations Shortness of breath Abnormal EKG Procedures Tilt Table Mayela Tracey MD [address] [address] Referral ID Status Reason Start Date Expiration Date V isits Requested Visits Authorized [id number] Pending Review 09/30/2023 09/29/2024 1 1 Specialty Diagnoses / Procedures Referred By Sarah coleman Referred To Contact Cardiology Diagnoses Postural dizziness with presyncope Mood disorder (CMS/HCC) Bipolar affective disorder, current episode hypomanic (CMS/HCC) Anxiety Posttraumatic stress disorder Hypokalemia Palpitations Obesity (BMI 35.0-39.9 without comorbidity) Shortness of breath Abnormal EKG Procedures Transthoracic Echo (TTE) Complete NC ECHO TRANSTHORC R-T 2D W/WO M-MODE REC F-UP/LMTD NC DOP ECHOCARD COLOR FLOW VELOCITY MAPPING NC DOP ECHOCARD PULSE WAVE W/SPECTRAL F-UP/LMTD STD Mayela Tracey MD 254 [facility] [address] [place] [address] Referral ID Status Reason Start Date Expiration Date Visits Requested Visits Authorized [id number] Pending Review Perform Procedure 09/29/2024 1 1 Specialty Diagnoses / Procedures Referred By Contac t Referred To Contact Cardiology Diagnoses Postural dizziness with presyncope Mood disorder (CMS/HCC) Bipolar affective disorder, current episode hypomanic (CMS/HCC) Anxiety Posttraumatic stress disorder Hypokalemia Palpitations Obesity (BMI 35.0-39.9 without comorbidity) Shortness of breath Abnormal EKG Procedures Holter Or Event Residential Team Leader Mayela Tracey MD [address] [facility] [address] [place] [address] Referral ID Status Reason Start Date Expiration Date V isits Requested Visits Authorized [id number] Pending Review 09/30/2023 09/29/2024 1 1 Specialty Diagnoses / Procedures Referred By Contac t Referred To Contact Cardiology Diagnoses Postural dizziness with presyncope Mood disorder (CMS/HCC) Bipolar affective disorder, current episode hypomanic (CMS/HCC) Anxiety Posttraumatic stress disorder Hypokalemia Palpitations Obesity (BMI 35.0-39.9 without comorbidity) Shortness of breath Abnormal EKG Procedures Follow Up In Cardiology Mayela Tracey MD [address] [place] [address] Mayela Tracey MD [address] [place] [address] Referral ID Status Reason Start Date Expiration Date V isits Requested Visits Authorized [id number] Authorized 09/30/2023 09/29/2024 1 1 Specialty Diagnoses / Procedures Referred By Contac t Referred To Contact Diagnoses Postural dizziness with presyncope Mood disorder (CMS/HCC) Bipolar affective disorder, current episode hypomanic (CMS/HCC) Anxiety Posttraumatic stress disorder Hypokalemia Palpitations Obesity (BMI 35.0-39.9 without comorbidity) Shortness of breath Abnormal EKG Procedures ECG 12 Lead Mayela Tracey MD 254 [email or web address] [address] [place] [address] Referral ID Status Reason Start Date Expiration Date V isits Requested Visits Authorized [id number] Pending Review 09/30/2023 09/29/2024 1 1 Additional Source Comments INFORMATION SOURCE (unrecogn ized section and content) DATE CREATED AUTHOR 04/30/2018 [facility] DATE CREATED AUTHOR AUTHOR'S ORGANIZ ATION 02/18/2020 [facility] DATE CREATED AUTHOR AUTHOR'S ORGANIZ ATION 01/28/2024 [facility] DATE CREATED AUTHOR AUTHOR'S ORGANIZ ATION 02/03/2024 [facility] DATE CREATED AUTHOR AUTHOR'S ORGANIZ ATION 04/09/2024 [facility] DATE CREATED AUTHOR AUTHOR'S ORGANIZ ATION 05/20/2024 [facility] DATE CREATED AUTHOR AUTHOR'S ORGANIZ ATION 05/28/2024 [place] DATE CREATED AUTHOR AUTHOR'S ORGANIZ ATION 07/16/2024 [facility] DATE CREATED AUTHOR AUTHOR'S ORGANIZ ATION 07/20/2024 [facility] DATE CREATED AUTHOR AUTHOR'S ORGANIZ ATION 10/07/2024 [facility] REASON FOR VISIT (unrecogniz ed section and content) Reason Comments Establish Care W/ekg Specialty Diagnoses / Procedures Referred By Contac [place] Referred To Contact Diagnoses Postural dizziness with presyncope Mood disorder (CMS/HCC) Bipolar affective disorder, current episode hypomanic (CMS/HCC) Anxiety Posttraumatic stress disorder Hypokalemia Palpitations Obesity (BMI 35.0-39.9 without comorbidity) Shortness of breath Abnormal EKG Procedures ECG 12 Lead Mayela Tracey MD [address] [facility] [address] [place] [address] Referral ID Status Reason Start Date Expiration Date V isits Requested Visits Authorized [id number] Pending Review 09/30/2023 09/29/2024 1 1 Specialty Diagnoses / Procedures Referred By Sarah coleman Referred To Contact Cardiology Diagnoses Postural dizziness with presyncope Mood disorder (CMS/HCC) Bipolar affective disorder, current episode hypomanic (CMS/HCC) Anxiety Posttraumatic stress disorder Hypokalemia Palpitations Obesity (BMI 35.0-39.9 without comorbidity) Shortness of breath Abnormal EKG Procedures Transthoracic Echo (TTE) Complete NC ECHO TRANSTHORC R-T 2D W/WO M-MODE REC F-UP/LMTD NC DOP ECHOCARD COLOR FLOW VELOCITY MAPPING NC DOP ECHOCARD PULSE WAVE W/SPECTRAL F-UP/LMTD STD Mayela Tracey MD [address] [employer] [address] [place] [address] Referral ID Status Reason Start Date Expiration Date Visits Requested Visits Authorized [id number] Authorized Perform Procedure 09/29/2024 1 1 Reason Comments Follow-up Tilt table results Care Teams (unrecognized sec tion and content) Team Status: Active Member Role Status Dates PHYSICIAN NO FAMILY Primary Care Provider Active Team Status: Inactive Member Role Status Dates PHYSICIAN NO FAMILY Primary Care Provider Active Christian Da Silva DO Emergency Provider Active Jamaal Yoder MD Admit Provider, Attending Provider Active Team Status: Active Member Role Status Dates PHYSICIAN NO FAMILY Primary Care Provider Active Christian Da Silva DO Emergency Provider Active Jamaal Yoder MD Admit Provider, Attending Provider Active Team Status: Active Member Role Status Dates Services Family [facility] Primary Care Provider Active Team Status: Inactive Member Role Status Dates Soila Jacobs MD RES Attending Provider Active Services [facility] Primary Care Provider Active Team Status: Inactive Member Role Status Dates Services [facility] Primary Care Provider Active Angel Ca DO Emergency Provider Active Surgical Assistant Relationship Specialty Start Date End Date Mayela Tracey MD [address] [facility] [address] [place] [address] Consulting Physician Cardiology 01/27/24 Team Status: Inactive Member Role Status Dates Rosa Jensen CNP Attending Provider Active Start: September 24, 2024 End: September 24, 2024 Goals (unrecognized section and content) Goals may be documented in a n alternate section FOR RECORDS PERTAINING TO PATIENTS WHO ARE OR HAVE BEEN ENROLLED IN A CHEMICAL DEPENDENCY/SUBSTANCEABUSE PROGRAM, SOME INFORMATION MAY BE OMITTED. This clinical summary was aggregated from multiple sources. Caution should be exercised in using it in the provision of clinical care. This summary normalizes information from multiple sources, and as a consequence, information in this document may materially change the coding, format and clinical context of patient data. In addition, data may be omitted in some cases. CLINICAL DECISIONS SHOULD BE BASED ON THE PRIMARY CLINICAL RECORDS. [employer] [facility]. provides no warranty or guarantee of the accuracy or completeness of information in this document.
--- NOTE | 2024-10-26 17:55 | ECG_ITS ---
[facility] Test Date: 2024-10-26 Pat Name: SIVAKUMAR GATICA Department: Room: - Gender: Female Edge Inker: : 2005 Requested By: Order Number: [id number] Reading MD: MELISSA DILL Measurements Intervals Ina Rate: 70 P: 49 IA: 164 QRS: 25 QRSD: 100 T: 29 QT: 360 QTc: 380 Interpretive Statements 1100 Sinus rhythm 8102 Low QRS voltage in chest leads 9120 atypical ECG No previous ECG available for comparison Electronically Signed On 10-26-2024 22:41:18 EST by MELISSA DILL
--- NOTE | 2024-10-26 17:58 | ED.PSYCH1 ---
Documented by User: KEYANNA Mathis 10/26/24 21:06 HPI - Psych General Chief Complaint: Psychiatric Symptoms Stated Complaint: MENTAL HEALTH ISSUE Time Seen by Provider: 10/26/24 17:41 Source: Reports patient Mode of arrival: walk-in Limitations: Reports no limitations History of Present Illness HPI Narrative: Patient is a 18-year-old female with a history of bipolar disorder who presents to the emergency department for increasing depression and suicidal thoughts. She states this has been present for the last 2 to 3 weeks. She states she had a manic cycle about 3 to 4 weeks ago and states a medication adjustment did not improve her symptoms. She states 4-5 times in the past she has had similar cycling of nikita and depression that was more severe than typical requiring her to be hospitalized in a mental health facility. She states she feels she is at that point today. She states she has had thoughts to cut herself with a razor. She is not concerned for . She has had no recent illness. She denies any drug or alcohol ingestion or overdose of her medications at home. Related Data Home Medications ?Medication ?Instructions ?Recorded ?Confirmed cyclobenzaprine 10 mg tablet 10 mg PO QAM 12/14/23 12/14/23 lurasidone 40 mg tablet (Latuda) 40 mg PO DAILY 12/14/23 12/14/23 melatonin 3 mg capsule 3 mg PO DAILY 12/14/23 12/14/23 montelukast 10 mg tablet 10 mg PO DAILY 12/14/23 12/14/23 (Singulair) propranolol 60 mg capsule,24 10 mg PO DAILY 12/14/23 12/14/23 hr,extended release venlafaxine 75 mg capsule,extended 75 mg PO DAILY 12/14/23 12/14/23 release 24 hr (Effexor XR) Previous Rx's ?Medication ?Instructions ?Recorded acetaminophen 650 mg 650 mg PO Q8H PRN pain #20 tabs 12/14/23 tablet,extended release (Tylenol 8 Hour) prednisone 20 mg tablet 40 mg (2 x 20 mg) PO DAILY 5 days 12/14/23 #10 tabs Allergies Allergy/AdvReac Type Severity Reaction Status Date / Time amoxicillin Allergy Mild Verified 12/14/23 15:22 Review of Systems ROS Constitutional Denies: fever or chills Ears, nose, mouth, and throat Denies: throat pain or nasal congestion Cardiovascular Denies: chest pain Respiratory Denies: shortness of breath or cough Gastrointestinal Denies: nausea or vomiting Musculoskeletal Denies: back pain or neck pain Integumentary/Breast Denies: rash Neurological Denies: numbness in extremities or weakness in extremities Psychiatric Reports: anxiety and suicidal ideation Hematologic/Lymphatic Denies: easy bruising or easy bleeding PFSH PFS Social History Little interest or pleasure in doing things: nearly every day Feeling down, depressed, or hopeless: nearly every day Exam Narrative Exam Narrative: Gen.: Awake, alert, in no distress Head: Normocephalic, atraumatic ENT: Moist mucous membranes Respiratory: No respiratory distress, lungs clear bilaterally Cardio: Regular rate and rhythm Extremities: Moves extremities equally, no injuries noted Psych: Normal mood and affect Neuro: No focal neuro deficit Skin: Warm, dry, intact Constitutional Vital Signs, click to edit/add: Last Vital Signs Temp 97.8 F 10/26/24 17:43 Pulse 75 10/26/24 23:38 Resp 16 10/26/24 23:38 BP 120/70 10/26/24 23:38 Pulse Ox 99 10/26/24 23:38 O2 Del Method Room Air 10/26/24 23:38 Course Vital Signs Vital signs: Vital Signs Temperature 97.8 F 10/26/24 17:43 Pulse Rate 76 10/26/24 17:43 Respiratory Rate 18 10/26/24 17:43 Blood Pressure 121/70 10/26/24 17:43 Pulse Oximetry 99 10/26/24 17:43 Temperature 97.8 F 10/26/24 17:43 Pulse Rate 75 10/26/24 23:38 Respiratory Rate 16 10/26/24 23:38 Blood Pressure 120/70 10/26/24 23:38 Pulse Oximetry 99 10/26/24 23:38 Oxygen Delivery Method Room Air 10/26/24 23:38 MDM - Psych MDM Narrative Medical decision making narrative: Patient calm and cooperative in the ER with good insight into her bipolar condition. She is agreeable to a voluntary admission to [facility] Accepted by Dr. Wilkinson for transfer. He is medically clear for psychiatric referral. SUPERVISED APC VISIT, PHYSICIAN ATTESTATION: Based on the medical record the care appears appropriate. ? Medical Records Attestation: I reviewed the patient's medical records. Lab Data Attestation: I reviewed the patient's lab results. Labs: Lab Results 10/26/24 10/26/24 10/26/24 Range/Units 17:48 18:00 18:17 WBC 7.2 (4.0-11.0) 10^3/uL RBC 4.73 (4.20-5.40) 10^6/uL Hgb 12.4 (12.0-16.0) g/dL Hct 38.3 (36.0-48.0) % MCV 81.0 (81.0-99.0) fL MCH 26.2 L (26.7-34.0) pg MCHC 32.4 (29.9-35.2) g/dL RDW 14.8 (11.0-15.0) % Plt Count 297 (150-450) 10^3/uL MPV 11.2 (9.5-13.5) fL Neut % (Auto) 53.9 (43.0-75.0) % Lymph % (Auto) 33.6 (20.5-60.0) % [place] % (Auto) 10.0 (1.7-12.0) % Eos % (Auto) 1.5 (0.9-7.0) % Baso % (Auto) 0.7 (0.2-2.0) % Neut # (Auto) 3.9 (1.4-6.5) 10^3/uL Lymph # (Auto) 2.4 (1.2-3.8) 10^3/uL [place] # (Auto) 0.7 (0.3-0.8) 10^3/uL Eos # (Auto) 0.1 (0.0-0.7) 10^3/uL Baso # (Auto) 0.1 (0.0-0.1) 10^3/uL Abs Immat Gran (auto) 0.02 (0.00-0.03) 10^3/uL Imm/Tot Granulo (auto) 0.3 (0.0-0.5) % Sodium 134 L (136-145) mmol/L Potassium 3.8 (3.5-5.1) mmol/L Chloride 100 (98-107) mmol/L Carbon Dioxide 23.3 (21.0-32.0) mmol/L Anion Gap 14.5 BUN 9.0 (7.0-18.0) mg/dL Creatinine 0.81 (0.55-1.02) mg/dL Est GFR ( Amer) >60 (>=60 mL/min/1.73m^2) Est GFR (Non-Af Amer) >60 (>=60 mL/min/1.73m^2) BUN/Creatinine Ratio 11.1 Glucose 112 H (74-106) mg/dL Calcium 9.2 (8.5-10.1) mg/dL Total Bilirubin 0.3 (0.2-1.0) mg/dL AST 17 (15-37) U/L ALT 22 (14-59) U/L Alkaline Phosphatase 96 (46-116) U/L Total Protein 7.0 (6.4-8.2) g/dL Albumin 3.5 (3.4-5.0) g/dL Globulin 3.5 g/dL Albumin/Globulin Ratio 1.0 Serum HCG, Qual Negative (NEGATIVE) Urine Color Dk. yellow (YELLOW) Urine Clarity Clear (CLEAR) Urine pH 6.0 (5.0-9.0) Ur Specific Coggon >=1.030 A (1.005-1.025) Urine Protein Negative (NEG/TRACE) mg/dL Urine Glucose (UA) Negative (NEGATIVE) mg/dL Urine Ketones 15 A (NEGATIVE) mg/dL Urine Occult Blood Negative (NEGATIVE) Urine Nitrite Negative (NEGATIVE) Urine Bilirubin Negative (NEGATIVE) Urine Urobilinogen 0.2 (0.2-1.0) EU/dL Ur Leukocyte Esterase Negative (NEGATIVE) Salicylates <2.8 (<=19.9) mg/dL Urine Opiates Screen Negative (NEGATIVE) Ur Buprenorphine Scrn Negative (NEGATIVE) Ur Oxycodone Screen Negative (NEGATIVE) Urine Methadone Screen Negative (NEGATIVE) Acetaminophen <2.0 L (10.0-30.0) ug/mL Ur Barbiturates Screen Negative (NEGATIVE) U Tricyclic Antidepress Negative (NEGATIVE) Ur Phencyclidine Scrn Negative (NEGATIVE) Ur Amphetamines Screen Negative (NEGATIVE) U Methamphetamines Scrn Negative (NEGATIVE) U Benzodiazepines Scrn Negative (NEGATIVE) Urine Cocaine Screen Negative (NEGATIVE) U Cannabinoids Screen Negative (NEGATIVE) Ethanol Quant <3 mg/dL ECG Data Attestation: I personally reviewed and interpreted this ECG as follows: (Normal sinus rhythm at a rate of 70, no acute ST elevation or ectopy. EKG reviewed by attending physician.) Discharge Plan Discharge Chief Complaint: Psychiatric Symptoms Clinical Impression: Suicidal ideation, Bipolar disorder Patient Disposition: [facility] Time of Disposition Decision: 21:06 Discharge Location: [facility] Mode of Transportation: Mental Health Car Discharge Date/Time: 10/26/24 23:38 Documented by User: Karan Marie MD 10/30/24 00:25 HPI - Psych General Chief Complaint: Psychiatric Symptoms Stated Complaint: MENTAL HEALTH ISSUE Time Seen by Provider: 10/26/24 17:41 Related Data Home Medications ?Medication ?Instructions ?Recorded ?Confirmed cyclobenzaprine 10 mg tablet 10 mg PO QAM 12/14/23 12/14/23 lurasidone 40 mg tablet (Latuda) 40 mg PO DAILY 12/14/23 12/14/23 melatonin 3 mg capsule 3 mg PO DAILY 12/14/23 12/14/23 montelukast 10 mg tablet 10 mg PO DAILY 12/14/23 12/14/23 (Singulair) propranolol 60 mg capsule,24 10 mg PO DAILY 12/14/23 12/14/23 hr,extended release venlafaxine 75 mg capsule,extended 75 mg PO DAILY 12/14/23 12/14/23 release 24 hr (Effexor XR) Previous Rx's ?Medication ?Instructions ?Recorded acetaminophen 650 mg 650 mg PO Q8H PRN pain #20 tabs 12/14/23 tablet,extended release (Tylenol 8 Hour) prednisone 20 mg tablet 40 mg (2 x 20 mg) PO DAILY 5 days 12/14/23 #10 tabs Allergies Allergy/AdvReac Type Severity Reaction Status Date / Time amoxicillin Allergy Mild Verified 12/14/23 15:22 PFSH PFSH Social History (Reviewed 10/26/24 @ 18:09 by WINSTON Mathis Little interest or pleasure in doing things: nearly every day Feeling down, depressed, or hopeless: nearly every day Exam Constitutional Vital Signs, click to edit/add: Last Vital Signs Temp 97.8 F 10/26/24 17:43 Pulse 75 10/26/24 23:38 Resp 16 10/26/24 23:38 BP 120/70 10/26/24 23:38 Pulse Ox 99 10/26/24 23:38 O2 Del Method Room Air 10/26/24 23:38 Course Vital Signs Vital signs: Vital Signs Temperature 97.8 F 10/26/24 17:43 Pulse Rate 76 10/26/24 17:43 Respiratory Rate 18 10/26/24 17:43 Blood Pressure 121/70 10/26/24 17:43 Pulse Oximetry 99 10/26/24 17:43 Temperature 97.8 F 10/26/24 17:43 Pulse Rate 75 10/26/24 23:38 Respiratory Rate 16 10/26/24 23:38 Blood Pressure 120/70 10/26/24 23:38 Pulse Oximetry 99 10/26/24 23:38 Oxygen Delivery Method Room Air 10/26/24 23:38 MDM - Psych MDM Narrative Medical decision making narrative: Patient calm and cooperative in the ER with good insight into her bipolar condition. She is agreeable to a voluntary admission to [facility] Accepted by Dr. Wilkinson for transfer. He is medically clear for psychiatric referral. SUPERVISED APC VISIT, PHYSICIAN ATTESTATION: Based on the medical record the care appears appropriate. Critical care time 33 minutes exclusive from separate billable procedures that were performed. The following was considered in the determination of critical care but not limited to the level of medical decision making, intensive cardiac and/or respiratory monitoring, frequent vital sign monitoring, evaluation of laboratory studies, evaluation of radiographic studies, oxygen monitoring, and constant monitoring and speaking to family at bedside ? Lab Data Labs: Lab Results 10/26/24 10/26/24 10/26/24 Range/Units 17:48 18:00 18:17 WBC 7.2 (4.0-11.0) 10^3/uL RBC 4.73 (4.20-5.40) 10^6/uL Hgb 12.4 (12.0-16.0) g/dL Hct 38.3 (36.0-48.0) % MCV 81.0 (81.0-99.0) fL MCH 26.2 L (26.7-34.0) pg MCHC 32.4 (29.9-35.2) g/dL RDW 14.8 (11.0-15.0) % Plt Count 297 (150-450) 10^3/uL MPV 11.2 (9.5-13.5) fL Neut % (Auto) 53.9 (43.0-75.0) % Lymph % (Auto) 33.6 (20.5-60.0) % [place] % (Auto) 10.0 (1.7-12.0) % Eos % (Auto) 1.5 (0.9-7.0) % Baso % (Auto) 0.7 (0.2-2.0) % Neut # (Auto) 3.9 (1.4-6.5) 10^3/uL Lymph # (Auto) 2.4 (1.2-3.8) 10^3/uL [place] # (Auto) 0.7 (0.3-0.8) 10^3/uL Eos # (Auto) 0.1 (0.0-0.7) 10^3/uL Baso # (Auto) 0.1 (0.0-0.1) 10^3/uL Abs Immat Gran (auto) 0.02 (0.00-0.03) 10^3/uL Imm/Tot Granulo (auto) 0.3 (0.0-0.5) % Sodium 134 L (136-145) mmol/L Potassium 3.8 (3.5-5.1) mmol/L Chloride 100 (98-107) mmol/L Carbon Dioxide 23.3 (21.0-32.0) mmol/L Anion Gap 14.5 BUN 9.0 (7.0-18.0) mg/dL Creatinine 0.81 (0.55-1.02) mg/dL Est GFR ( Amer) >60 (>=60 mL/min/1.73m^2) Est GFR (Non-Af Amer) >60 (>=60 mL/min/1.73m^2) BUN/Creatinine Ratio 11.1 Glucose 112 H (74-106) mg/dL Calcium 9.2 (8.5-10.1) mg/dL Total Bilirubin 0.3 (0.2-1.0) mg/dL AST 17 (15-37) U/L ALT 22 (14-59) U/L Alkaline Phosphatase 96 (46-116) U/L Total Protein 7.0 (6.4-8.2) g/dL Albumin 3.5 (3.4-5.0) g/dL Globulin 3.5 g/dL Albumin/Globulin Ratio 1.0 Serum HCG, Qual Negative (NEGATIVE) Urine Color Dk. yellow (YELLOW) Urine Clarity Clear (CLEAR) Urine pH 6.0 (5.0-9.0) Ur Specific Coggon >=1.030 A (1.005-1.025) Urine Protein Negative (NEG/TRACE) mg/dL Urine Glucose (UA) Negative (NEGATIVE) mg/dL Urine Ketones 15 A (NEGATIVE) mg/dL Urine Occult Blood Negative (NEGATIVE) Urine Nitrite Negative (NEGATIVE) Urine Bilirubin Negative (NEGATIVE) Urine Urobilinogen 0.2 (0.2-1.0) EU/dL Ur Leukocyte Esterase Negative (NEGATIVE) Salicylates <2.8 (<=19.9) mg/dL Urine Opiates Screen Negative (NEGATIVE) Ur Buprenorphine Scrn Negative (NEGATIVE) Ur Oxycodone Screen Negative (NEGATIVE) Urine Methadone Screen Negative (NEGATIVE) Acetaminophen <2.0 L (10.0-30.0) ug/mL Ur Barbiturates Screen Negative (NEGATIVE) U Tricyclic Antidepress Negative (NEGATIVE) Ur Phencyclidine Scrn Negative (NEGATIVE) Ur Amphetamines Screen Negative (NEGATIVE) U Methamphetamines Scrn Negative (NEGATIVE) U Benzodiazepines Scrn Negative (NEGATIVE) Urine Cocaine Screen Negative (NEGATIVE) U Cannabinoids Screen Negative (NEGATIVE) Ethanol Quant <3 mg/dL Discharge Plan Discharge Chief Complaint: Psychiatric Symptoms Clinical Impression: Suicidal ideation, Bipolar disorder Patient Disposition: [facility] Time of Disposition Decision: 21:06 Discharge Location: [facility] Mode of Transportation: Mental Health Car Discharge Date/Time: 10/26/24 23:38
[2024-10-26 18:16] LABS: Bilirubin Urine NEGATIVE (NEGATIVE); Blood Urine NEGATIVE (NEGATIVE); Clarity Urine CLEAR (CLEAR); Color Urine DK. YELLOW (YELLOW); Glucose Urine UA NEGATIVE (NEGATIVE); Ketones Urine 15 mg/dL (NEGATIVE); Leukocyte Esterase Urine NEGATIVE (NEGATIVE); Nitrite Urine NEGATIVE (NEGATIVE); Protein Urine NEGATIVE (NEG/TRACE); Specific Gravity Urine >=1.030 (1.005-1.025); Urobilinogen Urine 0.2 EU/dL (0.2-1.0)
[2024-10-26 18:18] LABS: Urine Microscopic Indicated NO
[2024-10-26 18:26] LABS: Basophils Absolute Auto 0.1 10^3/uL (0.0-0.1); Basophils Percent Auto 0.7 % (0.2-2.0); Eosinophils Absolute Auto 0.1 10^3/uL (0.0-0.7); Eosinophils Percent Auto 1.5 % (0.9-7.0); Hematocrit 38.3 % (36.0-48.0); Hemoglobin 12.4 g/dL (12.0-16.0); Immature Granulocytes Abs Auto 0.02 10^3/uL (0.00-0.03); Immature Granulocytes Pct Auto 0.3 % (0.0-0.5); Lymphocytes Absolute Auto 2.4 10^3/uL (1.2-3.8); Lymphocytes Percent Auto 33.6 % (20.5-60.0); Mean Corpuscular HGB Conc 32.4 g/dL (29.9-35.2); Mean Corpuscular Hemoglobin 26.2 pg (26.7-34.0); Mean Platelet Volume 11.2 fL (9.5-13.5); Monocytes Absolute Auto 0.7 10^3/uL (0.3-0.8); Neutrophils Absolute Auto 3.9 10^3/uL (1.4-6.5); Neutrophils Percent Auto 53.9 % (43.0-75.0); Platelet Count 297 10^3/uL (150-450); Red Blood Count 4.73 10^6/uL (4.20-5.40); Red Cell Distribution Width 14.8 % (11.0-15.0); White Blood Count 7.2 10^3/uL (4.0-11.0)
--- NOTE | 2024-10-26 18:26 | PC.NURSE ---
pt having a major depressive episode -- similar instances. having increased thoughts of suicide. not homocidal. has not taken any drugs or alcohol today. has not cut herself or any self harm today.
[2024-10-26 18:27] LABS: Amphetamine Screen Urine NEGATIVE (NEGATIVE); Barbiturates Screen Urine NEGATIVE (NEGATIVE); Benzodiazepines Screen Urine NEGATIVE (NEGATIVE); Buprenorphine Screen Urine NEGATIVE (NEGATIVE); Cannabinoid Screen Urine NEGATIVE (NEGATIVE); Cocaine Screen Urine NEGATIVE (NEGATIVE); Methadone Screen Urine NEGATIVE (NEGATIVE); Methamphetamines Screen Urine NEGATIVE (NEGATIVE); Opiate Screen Urine NEGATIVE (NEGATIVE); Oxycodone Screen Urine NEGATIVE (NEGATIVE); Phencyclidine Screen Urine NEGATIVE (NEGATIVE); Tricyclic Antidepressant Urine NEGATIVE (NEGATIVE)
[2024-10-26 18:30] LABS: Alanine Aminotransferase 22 U/L (14-59); Albumin Level 3.5 g/dL (3.4-5.0); Alkaline Phosphatase 96 U/L (46-116); Anion Gap 14.5; Aspartate Amino Transferase 17 U/L (15-37); BUN Creatinine Ratio 11.1; Bilirubin Total 0.3 mg/dL (0.2-1.0); Calcium 9.2 mg/dL (8.5-10.1); Carbon Dioxide 23.3 mmol/L (21.0-32.0); Chloride 100 mmol/L (98-107); Estimated GFR (African America >60 (>=60 mL/min/1.73m^2); Estimated GFR (Non-African Ame >60 (>=60 mL/min/1.73m^2); Globulin 3.5 g/dL; Glucose 112 mg/dL (74-106); Potassium 3.8 mmol/L (3.5-5.1); Salicylate <2.8 mg/dL (<=19.9); Sodium 134 mmol/L (136-145)
[2024-10-26 18:32] LABS: Acetaminophen <2.0 ug/mL (10.0-30.0); Ethanol <3 mg/dL
[2024-10-26 18:37] LABS: HCG Qualitative NEGATIVE (NEGATIVE); Internal Control Within Normal Limits
[2024-10-26 23:38] VITALS: BP 120/70; PULSE 75; O2SAT 99
== END 2024-10-26 23:38 ==
PROVIDERS: Physician Assistant; Emergency Provider Emergency Medicine
DX: R45.851 Suicidal ideations (principal); F31.9 Bipolar disorder, unspecified
CPT/HCPCS: 36415; 80053; 80179; 80307; 80320; 80329; 81003; 84703; 85025; 93005; 99285